=== PATIENT | female | born 1950 | race Caucasian/White ===

== ENCOUNTER 2019-01-23 08:37 | Outpatient (REF) | payer MEDICARE, BC, SELFPAY ==
[2019-01-23 13:25] LABS: HCT 44.7 % (36.0-46.0); HGB 14.8 g/dL (12.0-15.5); Mean Corp. HGB Concentration 33.1 g/dL (32.0-36.0); Mean Corpuscular Hemoglobin 29.9 pg (27.0-33.0); Mean Corpuscular Volume 90.3 fL (80-95); Mean Platelet Volume 12.3 fL (8.0-11.0); Platelet Count 194 x1000/uL (130-400); RBC 4.95 m/cumm (4.00-5.20); RBC Distribution Width 13.7 % (11.7-14.6); White Blood Cell Count 4.52 k/cumm (4.4-10.8)
[2019-01-23 13:30] LABS: ALT 27 U/L (12-78); AST 14 U/L (15-37); Albumin 3.8 g/dL (3.4-5.0); Alkaline Phosphatase 90 U/L (46-116); Anion Gap 11.8 mmol/L (3-11); BUN 17 mg/dL (7-18); Bilirubin, Total 0.7 mg/dL (0.2-1.0); CO2 25.2 mmol/L (21.0-32.0); CREATININE 0.74 mg/dL (0.55-1.02); Calculated LDL 138 mg/dL; Chloride 106 mmol/L (98-107); Cholesterol 210 mg/dL (50-200); Glucose 95 mg/dL (70-100); HDL Cholesterol 55 mg/dL (40-60); Sodium 143 mmol/L (136-145); Total Protein 6.7 g/dL (6.4-8.2); Triglyceride 89 mg/dL (30-150)
== END 2019-01-23 08:57 ==
LOC: NCHCN 08:37
PROVIDERS: PCP Family Medicine; Visit Provider Family Medicine
DX: R79.89 Other specified abnormal findings of blood chemistry (principal); Z13.6 Encounter for screening for cardiovascular disorders; Z13.0 Encounter for screening for diseases of the blood and blood-forming organs and certain disorders involving the immune mechanism
CPT/HCPCS: 80053; 80061; 83721; 85027

== ENCOUNTER 2019-02-13 00:16 | Outpatient (CLI) | payer MEDICARE, BC, SELFPAY ==
--- NOTE | 2019-02-13 10:15 | DI.MAMMO_ITS ---
SYMPTOM/DIAGNOSIS: SCREENING Z12.31, PREVENTATIVE Z00.00 MAMMOGRAM: 02/13 Mammograms were interpreted according to the usual protocol including computer analysis with CAD system, tomosynthesis and C view imaging. The breasts are heterogeneously dense. There is somewhat asymmetric radiodensity with increased radiodensity in the right breast as compared to the left particularly in the retroareolar portion of the breast. The findings are unchanged in comparison with previous examinations including February 2017. No new mass or clumped microcalcification seen. CONCLUSION: No specific evidence of malignancy at this time. Routine screening examinations are suggested at yearly intervals in this age group according to the ACS/ACR guidelines. Category 1, breast density category C. SA ASSESSMENT OF FINDINGS: Negative. Category 1. Patient will receive a letter notifying them of these results. Bi-RADS category C. The breasts are heterogeneously dense, which may obscure small masses.
== END 2019-02-13 00:36 ==
PROVIDERS: PCP Family Medicine; Visit Provider Family Medicine
DX: Z12.31 Encounter for screening mammogram for malignant neoplasm of breast (principal)
CPT/HCPCS: 77063; 77067

== ENCOUNTER 2019-03-21 12:16 | Outpatient (CLI) | payer MEDICARE, BC, SELFPAY ==
--- NOTE | 2019-03-21 12:17 | DI.RAD_ITS ---
INDICATION: PAIN M25.532 COMPARISON: No exams were available for comparison TECHNIQUE: 2D digital imaging was performed. FINDINGS: The bony structures are normally mineralized. There are mild degenerative changes involving the carpu s and 1st metacarpal inter multangular joints. There is no evidence of fracture or dislocation IMPRESSION:
== END 2019-03-21 12:36 ==
PROVIDERS: PCP Family Medicine; Visit Provider Specialist/Technologist Athletic Trainer
DX: M25.532 Pain in left wrist (principal); M19.032 Primary osteoarthritis, left wrist
CPT/HCPCS: 73110

== ENCOUNTER 2020-02-01 08:52 | Outpatient (REF) | payer MEDICARE, BC, SELFPAY ==
[2020-02-01 21:19] LABS: ALT 25 U/L (14-59); AST 13 U/L (15-37); Alkaline Phosphatase 88 U/L (46-116); Anion Gap 9.3 mmol/L (3-11); BUN 9 mg/dL (7-18); Bilirubin, Total 0.4 mg/dL (0.2-1.0); CO2 26.7 mmol/L (21.0-32.0); CREATININE 0.64 mg/dL (0.55-1.02); Calcium 9.1 mg/dL (8.5-10.1); Calculated LDL 150 mg/dL (<100); Chloride 111 mmol/L (98-107); Cholesterol 226 mg/dL (<200); Glucose 105 mg/dL (74-106); HDL Cholesterol 58 mg/dL (40-60); Potassium 3.9 mmol/L (3.5-5.1); Sodium 147 mmol/L (136-145); Total Protein 6.4 g/dL (6.4-8.2); Triglyceride 93 mg/dL (<150)
[2020-02-01 21:27] LABS: Albumin 3.7 g/dL (3.4-5.0)
== END 2020-02-01 09:12 ==
LOC: NCHCN 08:52
PROVIDERS: PCP Family Medicine; Visit Provider Family Medicine
DX: R79.89 Other specified abnormal findings of blood chemistry (principal)
CPT/HCPCS: 80053; 80061

== ENCOUNTER → 2020-04-09 11:08 | Outpatient (BNVA) | payer MEDICARE, BC, SELFPAY | PROVIDERS: PCP Family Medicine; Referring Provider Family Medicine; Visit Provider Surgery | DX: Z12.11 Encounter for screening for malignant neoplasm of colon (principal) ==

== ENCOUNTER 2020-04-29 10:10 | Day surgery (SDC) | payer MEDICARE, BC, SELFPAY ==
--- NOTE | 2020-04-29 07:03 | W.COLOREPORT ---
Date of service: 04/29/20 Time of Service: 11:13 Colonoscopy Report Date of procedure: 04/29/20 Pre-op diagnosis general: Colon Cancer Screening Post-op diagnosis procedure note: other (? a sessile polyp) Procedure: Colonoscopy with biopsy Surgeon: Sonia Jackson Anesthesia proc note operative: other (General/ASA 2/Alex Disla CRNA) Estimated blood loss (mL): 2 Pathology: other (Descending polyp) Complications: None Disposition: same day Indications: Healthy 70-year-old female who is here to discuss a colonoscopy. She has 2 previous colonoscopies both of which were normal. She has no cardiac disease history or lung disease history. The procedure was discussed with her as well as the risks and complications. Complications include but are not limited to bleeding, perforation, pain, missed small lesion or polyp, sore throat, aspiration and adverse reaction to the medications. Questions were entertained and answered to her satisfaction and she wished to proceed. Prep: Miralax/Dulcolax Procedure Start Time: 11:13 Procedure End Time: 11:34 Retraction Time: 14 minutes Findings: One possible polyp in the descending colon. It was sessile. ? inflammation vs polyp Procedure Description: After informed consent was obtained the patient was taken to the procedure room and placed in a left decubitous position. Monitors were applied and a time out was done. The patients name, date of , procedure, allergies to medications and metal in their body was reviewed. The patient was then sedated. Once sedated and comfortable a rectal exam was done. External exam was normal. Internal exam revealed a normal sphincter tone and no palpable masses. The scope was then introduced and retro-flexed. No internal hemorrhoids were identified. The scope was then advanced to the cecum without difficulty. The ileocecal valve and appendiceal orifice were identified. The prep was good. The scope was then slowly retracted over 14 minutes back into the rectum. There was an area in the descending colon which looked like a possible sessile polyp vs just some inflammation. The area was removed with forceps. There were no diverticula. The scope was removed and the patient was woken up and taken back to Same day surgery in stable condition. The patient tolerated the procedure well and there were no immediate complications. Follow up: Follow up will depend on the pathology results.
--- NOTE | 2020-04-29 07:04 | W.PM.DSUDISC ---
Discharge Plan Disposition Patient Disposition: HOME Condition: Good Discharge Details Reason For Visit: Colonoscopy Attending Provider: Sonia Jackson Primary Care Provider: Candida Sterling Home Meds and New Rx's Prescriptions: Continued acyclovir 200 MG capsule 400 mg PO DAILY RF: 0 carica papaya [Papaya Enzyme] Tablet 1 tab PO TID RF: 0 clobetasol 0.05 % cream 1 applic TP DAILY RF: 0 mometasone 0.1 % cream 1 applic TP DAILY RF: 0 hydrocortisone 2.5 % cream with perineal applicator 1 applic IN QD-BID PRNRF: 0 omeprazole 20 mg capsule,delayed release(DR/EC) 40 mg PO DAILY RF: 0 melatonin 5 mg capsule 10 mg PO HS PRNRF: 0 Discontinued polyethylene glycol 3350 17 gram/dose powder 238 g PO ONCE Qty: 238 RF: 0 bisacodyl [Dulcolax (bisacodyl)] 5 mg tablet,delayed release (DR/EC) 5 mg PO ONCE Qty: 4 RF: 0 Discharge Instructions Additional Instructions: Findings: ? a polyp vs just an area of inflammation Follow up: Will depend on the pathology result. I will send a letter in 10 days unless the pathology result is worrisome then I will call you Please call if you develop: fevers >101.5 Nausea or Vomiting Abdominal pain that is not transient DAY SURGERY UNIT POST ENDOSCOPY INSTRUCTIONS 1. Because there will be medication in your system for the next 24 hours, you may feel a little sleepy. Your coordination will be affected. Therefore: a. Do not drive or operate dangerous equipment for 24 hours. b. Do not drink alcohol beverages for 24 hours (not even beer). c. Plan to go home and rest for the day. 2. Generally there are no restrictions on your activity after a day or so has gone by, but you may feel a bit fatigued for a few days. 3 After you arrive home you may have a light meal and return to a normal diet as you can tolerate it without feeling sick to your stomach. 4. After surgery, you may feel pain or discomfort. This should be only transient, but if it persists please contact your doctor. 5. If there are any questions regarding the findings of your procedure, please feel free to contact your doctor. 6. If you are unable to contact your doctor with a problem, contact the hospital at [phone]. 7. Continue all your regular medications unless directed otherwise. I understand the above instructions and have no questions. Signature of Patient or Responsible Adult Escort Date/Time Name of Responsible Adult Escort Signature of Nurse Date/Time Activity:: Activity as Tolerated Diet:: As Tolerated Discharge Orders Discharge Orders: Discharge Order (Routine); Ordered 04/29/20 Ordered By: Sonia Jackson
[2020-04-29 10:33] VITALS: BP 122/74; PULSE 73; RESP 18; TEMP 36.6; O2SAT 97
[2020-04-29] MEDS: Lactated Ringers 1,000 ML 80 ML IV (11:01)
--- NOTE | 2020-04-29 11:28 | BOWEL_PTH ---
PATIENT: Lo Gardner LOC: [facility] U#:[id number] AGE/SX: 70/F ROOM: RE04/29/[address]: Sonia Jackson MD : 1950 BED: DIS: 04/29/2020 SPEC #: [id number] RECD: 04/29/20 12:40 STATUS: CAMI REQ #: [id number] RANJIT: 04/29/20 11:[address]: Sonia Jackson DEPT: Surgical Specimen RECD BY: Stephania Ly ENTERED: 04/29/20 12:40 SP TYPE: Bowel OTHR DR: Candida Sterling Tissues: 1 - BIOPSY BOWEL Procedures: GROSS AND MICRO LEVEL 4 Comments: [id number]
[2020-04-29 12:15] VITALS: BP 133/70; PULSE 70; RESP 17; TEMP 36.3; O2SAT 99
== END 2020-04-29 12:27 | disposition home or self-care (01) ==
PROVIDERS: Visit Provider Surgery
PROC: 0DJD8ZZ Inspection of Lower Intestinal Tract, Via Natural or Artificial Opening Endoscopic (ICD-10-PCS; CPT 45378; principal; 2020-04-29 10:15)
DX: Z12.11 Encounter for screening for malignant neoplasm of colon (principal); K63.5 Polyp of colon; K21.9 Gastro-esophageal reflux disease without esophagitis
CPT/HCPCS: 45380; 88305

== ENCOUNTER 2020-06-14 19:34 | Outpatient (REF) | payer MEDICARE, BC, SELFPAY ==
[2020-06-18 22:15] LABS: COVID-19 RT-PCR Result NEGATIVE (Negative)
== END 2020-06-14 19:54 ==
LOC: NCHCN 19:34
PROVIDERS: Visit Provider Family Medicine
DX: Z20.828 Contact with and (suspected) exposure to other viral communicable diseases (principal)
CPT/HCPCS: U0003

== ENCOUNTER 2021-02-25 12:02 | Outpatient (REF) | payer MEDICARE, BC, SELFPAY ==
[2021-02-25 20:07] LABS: HCT 44.5 % (36.0-46.0); HGB 14.4 g/dL (11.2-15.7); MCH 29.4 pg (27.0-33.0); MCHC 32.4 % (32.0-36.0); MPV 11.7 fL (8.0-11.0); Platelet Count 233 10^3/uL (130-400); RBC 4.89 10^6/uL (3.93-5.22); RDW 12.9 % (11.7-14.6); RDW-SD 42.7 fL; WBC 5.76 10^3/uL (4.4-10.8)
[2021-02-25 20:25] LABS: ALT 23 U/L (14-59); AST 12 U/L (15-37); Albumin 3.7 g/dL (3.4-5.0); Alkaline Phosphatase 94 U/L (46-116); BUN 14 mg/dL (7-18); Bilirubin, Total 0.6 mg/dL (0.2-1.0); CREATININE 0.7 mg/dL (0.55-1.02); Calcium 9.1 mg/dL (8.5-10.1); Chloride 107 mmol/L (98-107); Glucose 97 mg/dL (74-106); NT-proBNP 111 pg/mL (<300); Potassium 4.4 mmol/L (3.5-5.1); Sodium 143 mmol/L (136-145); TSH (W/Ref FT4) 1.24 uIU/mL (0.36-3.74); Total Protein 6.7 g/dL (6.4-8.2)
== END 2021-02-25 12:03 | disposition home or self-care (01) ==
LOC: NCHCN 12:02
PROVIDERS: Visit Provider Internal Medicine
DX: R06.09 Other forms of dyspnea (principal); R05 Cough; R13.10 Dysphagia, unspecified; K21.9 Gastro-esophageal reflux disease without esophagitis
CPT/HCPCS: 80053; 85027; 83880; 84443

== ENCOUNTER → 2021-03-17 13:22 | Outpatient (BNVA) | payer MEDICARE, BC, SELFPAY | PROVIDERS: Visit Provider Surgery | DX: L72.3 Sebaceous cyst (principal) | CPT/HCPCS: 99213 ==

== ENCOUNTER → 2021-04-24 11:05 | Outpatient (BNVA) | payer MEDICARE, BC, SELFPAY | PROVIDERS: Visit Provider Surgery | DX: L72.3 Sebaceous cyst (principal); D23.4 Other benign neoplasm of skin of scalp and neck; L72.0 Epidermal cyst | CPT/HCPCS: 11401; 11442 ==

== ENCOUNTER 2021-04-24 13:33 | Outpatient (REF) | payer MEDICARE, BC, SELFPAY ==
--- NOTE | 2021-04-24 11:35 | SKI_PTH ---
PATIENT: Lo Gardner LOC: [facility] U#:[id number] AGE/SX: 71/F ROOM: RE04/24/[address]: Evelyn White : 1950 BED: DIS: 04/24/2021 SPEC #: [id number] RECD: 04/24/21 17:31 STATUS: CAMI TURCIOS #: [id number] RANJIT: 04/24/21 11:[address]: Evelyn White DEPT: Surgical Specimen RECD BY: Stephania Ly ENTERED: 04/24/21 17:32 SP TYPE: MECHELLE SANCHEZ DR: Candida Sterling Tissues: 1 - SKIN BIOPSY(SHAVE/PUNCH) 2 - SKIN BIOPSY(SHAVE/PUNCH) Procedures: GROSS AND MICRO LEVEL 3 Comments: [id number]
== END 2021-04-24 13:34 | disposition home or self-care (01) ==
LOC: LBN 13:33
PROVIDERS: Visit Provider Surgery
DX: D23.4 Other benign neoplasm of skin of scalp and neck (principal); D23.72 Other benign neoplasm of skin of left lower limb, including hip; L72.0 Epidermal cyst
CPT/HCPCS: 88304; 88305

== ENCOUNTER → 2021-05-02 13:47 | Outpatient (BNVA) | payer MEDICARE, BC, SELFPAY | PROVIDERS: Visit Provider Physical Therapy Assistant | DX: Z48.02 Encounter for removal of sutures (principal) ==

== ENCOUNTER 2021-05-30 00:38 | Outpatient (CLI) | payer MEDICARE, BC, SELFPAY ==
--- NOTE | 2021-05-30 14:30 | DI.RAD_ITS ---
Exam(s) XR CHEST 2V PA LATERAL EXAM: XR CHEST 2V PA LATERAL CLINICAL HISTORY: CHRONIC COUGH, R05 TECHNIQUE: 2D digital imaging was performed. COMPARISON: CR CHEST 2 VIEWS PA,LAT from 11/22/2014 FINDINGS: MEDIASTINUM: Normal. HEART: Normal. PULMONARY VASCULATURE: Normal. LUNGS: Clear. PLEURAL SPACE: No pleural effusion or pneumothorax. BONE:Unremarkable for age. IMPRESSION: No acute abnormality. DATA REPOSITORY: RADIATION DOSE DELIVERED:
--- NOTE | 2021-05-30 14:38 | DI.MAMMO_ITS ---
Exam(s) MAMMO SCREENING EXAM: MAMMO SCREENING CLINICAL HISTORY: SCREENING, Z12.39 TECHNIQUE: Mammograms were interpreted according to the usual protocol including computer analysis w [employer] CAD system, tomosynthesis and C-view imaging. COMPARISON: 2012 through 2018 FINDINGS: The breasts are composed of heterogeneously dense fibroglandular densities, Breast Density category C . No suspicious masses or suspicious microcalcifications are seen. No skin thickening or abnormal axillary lymph nodes are seen. There has been no significant change from prior exams. IMPRESSION: BI-RADS Category 1, Negative mammogram. Yearly screening mammography is recommended. Breast Density Category C, heterogeneously Dense. The mammogram demonstrates the patient's breast tissue is dense. Dense breast tissue is very common a nd is not abnormal but dense breast tissue can make it harder to find cancer on a mammogram. Also, de nse breast tissue may increase breast cancer risk. This information about the result of the mammogram report was provided to the patient to raise their awareness. Use this report when you speak with the patient about their risks for breast cancer, which includes their family history. At that time, you may recommend additional screening tests (Ultrasound or MRI) as they might be useful based on their r isk. A negative radiographic report should not delay biopsy if a dominant or clinically suspicious mass is present. Up to ten percent of cancers are not identified on mammography. A negative report may reinforce clinical impression. Adenosis and dense breasts may obscure an underlying neoplasm. False positive reports average 6 to 10%.
== END 2021-05-30 00:58 ==
PROVIDERS: Visit Provider Internal Medicine
DX: Z12.31 Encounter for screening mammogram for malignant neoplasm of breast (principal); R05.8 Other specified cough; R92.8 Other abnormal and inconclusive findings on diagnostic imaging of breast
CPT/HCPCS: 77063; 77067; 71046

== ENCOUNTER 2021-07-24 18:01 | Outpatient (REF) | payer MEDICARE, BC, SELFPAY ==
[2021-07-26 13:25] LABS: COVID-19 RT-PCR UVMMC Result Negative (Negative)
== END 2021-07-24 18:02 | disposition home or self-care (01) ==
LOC: NCHCN 18:01
PROVIDERS: Visit Provider Family Medicine
DX: R19.7 Diarrhea, unspecified (principal)
CPT/HCPCS: U0003; U0005

== ENCOUNTER 2021-07-27 08:21 | Emergency (ER) | payer MEDICARE, BC, SELFPAY ==
[2021-07-27] VITALS (51 sets, daily range): BP systolic 146–168; BP diastolic 62–79; PULSE 47–63; RESP 62; TEMP 37; O2SAT 87–98
--- NOTE | 2021-07-27 08:30 | DI.CT_ITS ---
Exam(s) CT RENAL COLIC WO EXAM: CT RENAL COLIC WO CLINICAL HISTORY: left flank pain. TECHNIQUE: Imaging Protocol: Axial computed tomography images with coronal and sagittal reformatted images were created and reviewed. COMPARISON: No exams were available for comparison FINDINGS: ABDOMEN: Lung Bases: No acute pulmonary infiltrates. Liver: Normal density. No measurable mass. The liver measures 21 cm in length. This appears to repre sent a Bill's lobe. Gallbladder and biliary tract: No radiodense calculus or biliary ductal dilation. Pancreas: Normal density, no abnormal calcifications or inflammatory process. Spleen: Normal. Kidneys: Normal size, contour and axis.There is bilateral nephrolithiasis. There is a 8 mm stone in the proximal right ureter causing [id number] hydronephrosis. No masses seen. Adrenal glands: No mass is seen. Lymph nodes: Within normal limits. Abdominal Aorta: Abdominal portion non-dilated. Atherosclerosis. PELVIS: Bladder:Symmetric distention. There is a question of a soft tissue nodule in the anterior superior u rinary bladder best appreciated on the sagittal views. (Series 5, image 70). Bowel: No obstruction or bowel wall thickening. No evidence of appendicitis. There is a small hiatal hernia. Peritoneal cavity: No ascites, collection or mesenteric inflammatory response. No free air. There i s a surgical clip in the right anterior abdominal cavity which may have migrated. Reproductive organs: Within normal limits. Bones: Within normal limits. Soft Tissues: Small fat containing umbilical hernia. Small fat containing infraumbilical anterior ab dominal wall hernia. IMPRESSION: 1. 8 mm left UPJ obstructing stone causing vyea-[id number] hydronephrosis. 2. Bilateral nephrolithiasis. 3. Question of a soft tissue nodule in the anterior superior the bladder wall. A neoplasm cannot be entirely excluded. Further evaluation with ultrasound or CT urogram should be considered. RADIATION DOSE DELIVERED: 891.85mGy.cm Total DLP DATA REPOSITORY: All CT scans at this facility are submitted to the National Radiology Data Registry (NRDR) Dose Index Registry (DIR) with the [employer] (ACR). RADIATION OPTIMIZATION: All CT scans at this facility use at least one of these dose optimization te chniques: automated exposure control; mA and/or kV adjustment per patient size (includes targeted exa ms where dose is matched to clinical indication); or iterative reconstruction.
[2021-07-27] MEDS: HYDROmorphone 2 MG/ML VIAL 0.5 MG IVP (08:40)
--- NOTE | 2021-07-27 08:40 | W.ED.GENAD ---
Discharge Plan Disposition Patient Disposition: HOME Condition: Stable Discharge Details Clinical Impression: Hydronephrosis with obstructing calculus Primary Care Provider: Candida Sterling ED Provider: Se Ruggiero Home Meds and New Rx's Prescriptions: New oxycodone 10 mg tablet 10 mg PO Q6H PRN (Reason: pain) Qty: 10 RF: 0 ondansetron 4 mg tablet,disintegrating 4 mg PO Q6H PRN (Reason: nausea and vomiting) Qty: 10 RF: 0 tamsulosin 0.4 mg capsule 0.4 mg PO QHS Qty: 14 RF: 0 Continued acyclovir 200 MG capsule 400 mg PO DAILY RF: 0 clobetasol 0.05 % cream 1 applic TP DAILY RF: 0 mometasone 0.1 % cream 1 applic TP DAILY RF: 0 hydrocortisone 2.5 % cream with perineal applicator 1 applic MS QD-BID PRNRF: 0 omeprazole 20 mg capsule,delayed release(DR/EC) 40 mg PO DAILY RF: 0 melatonin 5 mg capsule 10 mg PO HS PRNRF: 0 ascorbic acid (vitamin C) [Vitamin C] 1,000 mg Tablet 1,000 mg PO DAILY RF: 0 cholecalciferol (vitamin D3) [Vitamin D3] 10 mcg (400 unit) Tablet 400 unit PO DAILY RF: 0 Discharge Instructions Instructions: Kidney Stones (ED) Additional Instructions: As discussed you may take acetaminophen/Tylenol as needed for pain control just do not exceed 3000 mg in a 24-hour. Stay well-hydrated and take other meds as prescribed. If you have any severe worsening of pain, inability to urinate, fever, or vomiting that will not stop return immediately to the emergency department for reevaluation. It is recommended that you follow-up with urology. You were prescribed a narcotic medication and you should take this for severe pain and discomfort. Please be cautious with any operating vehicles, heavy machinery, or dangerous items as this medication may alter your mentation. Referrals: Dm Saunders MD [ [facility] STAFF PHYSICIAN] - 1 week Medical Decision Making Patient presenting to the emergency department with chief complaint of left flank pain. Patient states that she saw her primary care provider on and there was suspicion of this being musculoskeletal. Patient states that pain is worsened, she has developed some nausea one episode of vomiting, and pain radiating into the pelvis. Physical exam shows significant amount of left CVA tenderness, hypoactive bowel sounds, otherwise normal cardiac and respiratory exam. Patient is moaning in pain and appears uncomfortable. Plan to check labs, give analgesia, and hydrate pending CT renal colic imaging. Review of labs show signs of hematuria otherwise no white count, slightly elevated anion gap but appropriate renal function, and otherwise nondiagnostic labs. Review of CT imaging along with radiologist report shows a obstructing 8 mm stone at the left ureteropelvic junction with mild hydronephrosis. There is some fat stranding adjacent to the renal sinus and UPJ. Patient reassessed and is significantly more comfortable after pain medication. Discussed laboratory and CT findings with patient along with plan of care to include Flomax, narcotic pain medication, and follow-up with urology. Patient is agreeable to discharge home but states clear understanding of return precautions. Was unable to login to [facility] for narcotic check but had thorough discussion of risk versus benefit of narcotics with patient and feel no concern for prescribing these at this time. Patient was also agreeable to prescription of narcotic pain medication and states understanding to only use for severe pain otherwise she states she will use acetaminophen. After discussion of diagnosis and plan of care patient has no further needs, questions, or concerns and states clear understanding to return to the emergency department for any worsening symptoms. Patient was placed upon follow-up with for urology. Lab Data Lab results reviewed: Yes I reviewed the patient's lab results. Labs: 07/27/21 08:38 Urine - Reflex from Ua Urine Culture - Pending Laboratory Tests Range/Units 07/27/21 07/27/21 07/27/21 08:34 08:34 08:38 WBC (4.4-10.8) 10^3/uL 8.02 RBC (3.93-5.22) 10^6/uL 4.89 Hgb (11.2-15.7) g/dL 14.9 Hct (36.0-46.0) % 44.4 MCV (80-95) fL 90.8 MCH (27.0-33.0) pg 30.5 MCHC (32.0-36.0) % 33.6 RDW (11.7-14.6) % 12.5 Plt Count (130-400) 10^3/uL 230 MPV (8.0-11.0) fL 11.1 H Immature Gran % 0.2 Neutrophils % 52.1 Lymphocytes % 38.2 Monocytes % 6.4 Eosinophils % 2.6 Basophils % 0.5 Nucleated RBC % % 0 Absolute Neutrophils (1.2-6.7) 10^3/uL 4.18 Absolute Lymphocytes (1.2-3.4) 10^3/uL 3.06 Absolute Monocytes (0.1-0.8) 10^3/uL 0.51 Absolute Eosinophils (0.0-0.7) 10^3/uL 0.21 Absolute Basophils (0.0-0.2) 10^3/uL 0.04 Sodium (136-145) mmol/L 140 Potassium (3.5-5.1) mmol/L 3.6 Chloride (98-107) mmol/L 103 Carbon Dioxide (21.0-32.0) mmol/L 23.5 Anion Gap (3-11) mmol/L 13.5 H BUN (7-18) mg/dL 23 H Creatinine (0.55-1.02) mg/dL 1.0 Estimated GFR/1.73 m2 (mL/min/1.73m2) 54.35 Glucose (74-106) mg/dL 159 H Calcium (8.5-10.1) mg/dL 9.3 Magnesium (1.8-2.4) mg/dL 1.7 L Total Bilirubin (0.2-1.0) mg/dL 0.4 AST (15-37) U/L 12 L ALT (14-59) U/L 18 Alkaline Phosphatase (46-116) U/L 91 Troponin I (<or=60) ng/L < 50 Total Protein (6.4-8.2) g/dL 7.3 Albumin (3.4-5.0) g/dL 3.9 Lipase (73-393) U/L 128 Urine Color (Yellow) Yellow Urine Clarity (Clear) Sl Cloudy Urine pH (5-8) 7.0 Ur Specific [place] (1.005-1.025) 1.020 Urine Protein (Negative) mg/dL Negative Urine Ketones (Negative) mg/dL Negative Urine Blood (Negative) Moderate H Urine Nitrite (Negative) Negative Urine Bilirubin (Negative) Negative Urine Urobilinogen (Up TO 0.2) EU/dL 0.2 Ur Leukocyte Esterase (Negative) Trace H Urine RBC (0-2) HPF 10-20 H Urine WBC (0-5) HPF 3-5 Ur Epithelial Cells (Negative) HPF Rare Urine Crystals (Negative) HPF Negative Urine Bacteria (Negative) HPF Rare Urine Casts (Negative) LPF Negative Urine Mucus (Negative) Negative Ur Culture Indicated? Yes Urine Glucose (Negative) mg/dL Negative HPI General Mode of arrival: ambulatory. Date/Time Provider Initiated Documentation: 07/27/21 08:22. Limitations to Documentation: no limitations. Information obtained by: patient. History of Present Illness 71 year old F presents to the emergency department with the chief complaint of Left flank pain, described as severe, with intensity rated at 10. Quality is described as sharp, and is localized to the back and left. Patient reports radiation to (pelvis). Patient started experiencing this day(s) (4) and it has been constant. No relieving factors improve symptom(s), Movement worsens symptoms . Patient notes nausea/vomiting. Patient did receive the following treatments prior to arrival, NSAID Related Data Home Medications Medication Instructions Recorded Confirmed acyclovir 400 mg PO DAILY 10/11/13 07/27/21 clobetasol 0.05 % topical cream 1 applic TP DAILY 02/27/20 07/27/21 hydrocortisone 2.5 % topical cream 1 applic MS QD-BID PRN 02/27/20 05/03/21 with perineal applicator mometasone 0.1 % topical cream 1 applic TP DAILY 02/27/20 07/27/21 omeprazole 20 mg capsule,delayed 40 mg PO DAILY cap 04/02/20 07/27/21 release melatonin 5 mg capsule 10 mg PO HS PRN cap 04/09/20 07/27/21 ascorbic acid (vitamin C) [Vitamin 1,000 mg PO DAILY 07/27/21 07/27/21 C] cholecalciferol (vitamin D3) 400 unit PO DAILY 07/27/21 07/27/21 [Vitamin D3] ondansetron 4 mg PO Q6H PRN #10 tab 07/27/21 oxycodone 10 mg PO Q6H PRN #10 tab 07/27/21 tamsulosin 0.4 mg PO QHS #14 cap 07/27/21 Previous Rx's Medication Instructions Recorded ondansetron 4 mg PO Q6H PRN #10 tab 07/27/21 oxycodone 10 mg PO Q6H PRN #10 tab 07/27/21 tamsulosin 0.4 mg PO QHS #14 cap 07/27/21 Allergies Allergy/AdvReac Type Severity Reaction Status Date / Time erythromycin base Allergy Unknown Skin Rash Verified 07/27/21 08:46 General Stated Complaint: FlankPain KESHAWN: 3 Review of Systems Constitutional Constitutional: Denies chills, Denies fever(s) and Denies poor appetite Cardiovascular Cardiovascular: Denies chest pain and Denies dyspnea Respiratory Respiratory: Denies cough and Denies dyspnea Gastrointestinal Gastrointestinal: Reports as per HPI, Reports abdominal pain, Denies melena, Denies change in bowel habits, Denies constipation, Reports diarrhea, Reports nausea and Denies vomiting Genitourinary Genitourinary: Denies hematuria, Denies urinary incontinence, Denies urinary hesitancy and Denies urinary urgency Musculoskeletal Musculoskeletal: Reports back pain and Denies radiating pain into limb Integumentary/Breasts Skin/Breast: Denies rash Neurologic Neurologic: Denies paresthesias PFSH All Active Problems (Updated 07/27/21 @ 09:49 by Se Ruggiero NP) Hydronephrosis with obstructing calculus (Acute) Sebaceous cyst (Acute) H/O cold sores (Chronic) Tubular adenoma of colon (Acute) Urinary incontinence (Acute) Pt states r/o incontenece she leaks. Herpes labialis (Acute) Cataract (Chronic) Onychomycosis (Acute) Seborrheic keratoses (Acute) Medical History Biceps tendinitis on left (11/22/14) Chronic cough Cystocele Pt. states she has a titanium staple They tacked up by bladder Dysphagia Exertional dyspnea GERD (gastroesophageal reflux disease) Left arm pain (11/22/14) Scalp lesion Surgical History S/P colonoscopy 2008- [facility]- normal S/P tonsillectomy S/P tubal ligation Social History Smoking/Tobacco Use Status: Never Smoking risk assessment performed?: Yes Alcohol Intake: current Alcohol Intake frequency: 0-2 drinks per day Drug use: Never Substance use type: does not use Do you feel safe at home: Yes Do you feel safe in your relationship?: Yes Exam Const General: in distress moderate (Secondary to pain) Nutritional Appearance: overweight Orientation: alert, awake and oriented x3 Resp Effort & Inspection: normal respiratory effort and able to speak in complete sentences Auscultation: clear to auscultation bilaterally Cardio Rate: regular rate Rhythm: regular rhythm Heart Sounds: S1 normal and S2 normal GI Palpation: soft, no hepatosplenomegaly, not firm, no guarding, no masses, no pulsatile masses, not rigid, no splenomegaly and nontender Auscultation: hypoactive bowel sounds General: CVA tenderness on the left Back/Spine/Pelvis Back: CVA tenderness (left) and back tenderness (Left paraspinal) Neuro General: patient alert, patient awake, patient oriented x3, gait normal and moves all extremities Course Vital Signs Vital signs: Vital Signs Temperature 37 C 07/27/21 08:33 Pulse 62 07/27/21 08:33 Respiratory Rate 62 H 07/27/21 08:33 Temperature 37 C 07/27/21 08:33 Temperature Source Skin 07/27/21 08:33 Pulse 62 07/27/21 08:33 Respiratory Rate 62 H 07/27/21 08:33 Blood Pressure Position Supine 07/27/21 08:33 Pain Level 10 07/27/21 08:33
[2021-07-27 08:42] LABS: Bilirubin Negative (Negative); Blood Moderate (Negative); Clarity Sl Cloudy (Clear); Glucose Negative (Negative); Ketones Negative (Negative); Leukocyte Esterase Trace (Negative); Nitrite Negative (Negative); Urobilinogen 0.2 EU/dL (Up TO 0.2)
[2021-07-27 08:45] LABS: Abs Immature Grans 0.02 10^3/uL (0.0-0.06); Absolute Basophil Count 0.04 10^3/uL (0.0-0.2); Absolute Eosinophil Count 0.21 10^3/uL (0.0-0.7); Absolute Lymphocyte Count 3.06 10^3/uL (1.2-3.4); Absolute Monocyte Count 0.51 10^3/uL (0.1-0.8); Absolute Neutrophil Count 4.18 10^3/uL (1.2-6.7); Basophils % 0.5; Eosinophils % 2.6; HCT 44.4 % (36.0-46.0); HGB 14.9 g/dL (11.2-15.7); Immature Grans % 0.2; Lymphocytes % 38.2; MCH 30.5 pg (27.0-33.0); MCHC 33.6 % (32.0-36.0); MCV 90.8 fL (80-95); MPV 11.1 fL (8.0-11.0); Monocytes % 6.4; Neutrophils % 52.1; Nucleated RBC 0 %; Platelet Count 230 10^3/uL (130-400); RBC 4.89 10^6/uL (3.93-5.22); RDW 12.5 % (11.7-14.6); RDW-SD 41.6 fL; WBC 8.02 10^3/uL (4.4-10.8)
[2021-07-27] MEDS: Ondansetron 4 MG/2 ML VIAL IVP (08:50)
[2021-07-27] MEDS: Normal Saline 250 ML 500 ML IV (08:50)
[2021-07-27 08:53] LABS: Bacteria Rare HPF (Negative); C & S Indicated? Yes; Casts Negative LPF (Negative); Crystals Negative HPF (Negative); Epithelial Cells Rare HPF (Negative); Mucus Negative (Negative)
[2021-07-27 09:02] LABS: ALT 18 U/L (14-59); AST 12 U/L (15-37); Albumin 3.9 g/dL (3.4-5.0); Alkaline Phosphatase 91 U/L (46-116); Anion Gap 13.5 mmol/L (3-11); BUN 23 mg/dL (7-18); Bilirubin, Total 0.4 mg/dL (0.2-1.0); CO2 23.5 mmol/L (21.0-32.0); Calcium 9.3 mg/dL (8.5-10.1); Chloride 103 mmol/L (98-107); Estimated GFR 54.35 (mL/min/1.73m2); Glucose 159 mg/dL (74-106); Lipase 128 U/L (73-393); Magnesium 1.7 mg/dL (1.8-2.4); Potassium 3.6 mmol/L (3.5-5.1); Sodium 140 mmol/L (136-145); Total Protein 7.3 g/dL (6.4-8.2); Troponin I < 50 ng/L (<or=60)
--- NOTE | 2021-07-27 09:31 | DI.VRAD_ITS ---
PROCEDURE INFORMATION: Exam: CT Abdomen And Pelvis Without Contrast Exam date and time: 07/27/2021 8:39 AM Age: 71 years old Clinical indication: Other: Left flank pain TECHNIQUE: Imaging protocol: Computed tomography of the abdomen and pelvis without contrast. Radiation optimization: All CT scans at this facility use at least one of these dose optimization techniques: automated exposure control; mA and/or kV adjustment per patient size (includes targeted exams where dose is matched to clinical indication); or iterative reconstruction. COMPARISON: CR BILATERAL HIPS ADULT 02/17/2017 1:08 PM FINDINGS: Lungs: Minimal bibasilar scarring. Heart: The visualized heart is within normal limits for size. There is no evidence of pericardial abnormality. Esophagus: The distal esophagus is normal in appearance. Liver: The liver is normal in size and contour. Gallbladder and bile ducts: The gallbladder is distended with normal wall thickness and does not demonstrate calcified gallstones. No intra- or extra-hepatic biliary ductal dilatation. Pancreas: The pancreas appears normal. Spleen: The spleen appears normal. Adrenal glands: The adrenals appear normal. Kidneys and ureters: Obstructing 8 mm stone at the left ureteropelvic junction. Mild hydronephrosis. Fat stranding adjacent to the renal sinus and ureteropelvic junction. Nonobstructing 6 mm stone noted in the lower pole of the left kidney. Punctate nonobstructing stones in the lower pole the right kidney. No signs of right-sided urinary obstruction. Stomach and bowel: The stomach is appropriately distended and without wall abnormalities. The small bowel loops are not abnormally dilated and demonstrate no focal wall thickening. The large bowel loops are not abnormally dilated and demonstrate no focal wall thickening. Appendix: The appendix appears normal. Intraperitoneal space: Migrated surgical clip noted in right mid abdomen. Vasculature: The aorta is nonaneurysmal. The IVC appears normal. Lymph nodes: There are no enlarged lymph nodes. Urinary bladder: The bladder is distended and demonstrates no focal contour abnormality. Reproductive: The uterus appears normal. Clips likely related of fallopian tube intervention noted. The ovaries are not well visualized. Bones/joints: Degenerative disc disease at L5-S1. Soft tissues: 5 mm fat containing hernia along the anterior pelvic wall. 12 mm fat containing umbilical hernia. IMPRESSION: 1. Obstructing 8 mm stone at the left ureteropelvic junction. Mild hydronephrosis. Fat stranding adjacent to the renal sinus and ureteropelvic junction. Nonobstructing 6 mm stone noted in the lower pole of the left kidney. 2. Right-sided nephrolithiasis. COMMENTS: Evaluation of solid organs and vascular structures is limited as no IV contrast was administered. Dictated and Authenticated by: Nixon Sinclair MD. Ordering:BERNARDO Saez MD
[2021-07-27] MEDS: Ketorolac 15 MG/ML VIAL IVP (10:01)
--- NOTE | 2021-07-27 10:08 | NUR.NOTE ---
Referral faxed to [facility]rology for follow up of 8mm obstructing stone within 1 week. Brenda Turner Nursing Note:
== END 2021-07-27 11:28 | disposition home or self-care (01) ==
PROVIDERS: Emergency Provider Nurse Practitioner Family
DX: N13.2 Hydronephrosis with renal and ureteral calculous obstruction (principal); R11.2 Nausea with vomiting, unspecified; R10.9 Unspecified abdominal pain
CPT/HCPCS: 36415; 80053; 83690; 96361; 96374; 96375; 99284; 74176; 81003; 81015; 83735; 84484; 85025; 87086; J1885; J2405

== ENCOUNTER → 2021-07-29 09:13 | Outpatient (BNVA) | payer MEDICARE, BC, SELFPAY | PROVIDERS: Visit Provider Urology | DX: N20.1 Calculus of ureter (principal); N39.46 Mixed incontinence | CPT/HCPCS: 99214 ==

== ENCOUNTER 2021-08-05 01:48 | Outpatient (CLI) | payer MEDICARE, BC, SELFPAY ==
[2021-08-05 13:49] LABS: Source Nasal/Nares
[2021-08-05 16:43] LABS: COVID-19 PCR Negative (Negative)
== END 2021-08-05 01:49 | disposition home or self-care (01) ==
LOC: LBO 01:49
PROVIDERS: PCP Family Medicine; Visit Provider Urology
DX: Z20.822 Contact with and (suspected) exposure to COVID-19 (principal); Z01.818 Encounter for other preprocedural examination
CPT/HCPCS: 87635

== ENCOUNTER 2021-08-07 07:15 | Day surgery (SDC) | payer MEDICARE, BC, SELFPAY ==
[2021-08-07] VITALS (9 sets, daily range): BP systolic 96–171; BP diastolic 62–85; PULSE 57–84; RESP 13–16; TEMP 36–37; O2SAT 97–100; BMI 27.3
--- NOTE | 2021-08-07 08:05 | W.ANESPRE ---
General Info Date of Service Date Performed: 08/07/21 Height: 5 ft 4 in Weight: 72.4 kg Body Mass Index (BMI): 27.3 Surgical Procedure: Operation Date: 08/07/21 08:40 Proposed Procedures Side Surgeon p Cystoscopy/Laser/Retrograde/Ureteroscopy/ possible Stent,Cysto w/Injection of Coaptite and Botox Left Dm Saunders MD s Cystoscopy/Injection Dm Saunders MD Meds Allergies and Home Medications Allergies Allergy/AdvReac Type Severity Reaction Status Date / Time erythromycin base Allergy Unknown Skin Rash Verified 08/07/21 07:38 oxycodone AdvReac Severe Other (See Verified 08/07/21 07:38 Comment) Home Medication Medication Instructions Recorded acyclovir 400 mg PO DAILY 10/11/13 clobetasol 0.05 % topical cream 1 applic TP DAILY 02/27/20 hydrocortisone 2.5 % topical cream 1 applic [place] QD-BID PRN 02/27/20 with perineal applicator mometasone 0.1 % topical cream 1 applic TP DAILY 02/27/20 omeprazole 20 mg capsule,delayed 40 mg PO DAILY cap 04/02/20 release melatonin 5 mg capsule 10 mg PO HS PRN cap 04/09/20 ascorbic acid (vitamin C) [Vitamin 1,000 mg PO DAILY 07/27/21 C] cholecalciferol (vitamin D3) 400 unit PO DAILY 07/27/21 [Vitamin D3] ondansetron 4 mg PO Q6H PRN #10 tab 07/27/21 oxycodone 10 mg PO Q6H PRN #10 tab 07/27/21 tamsulosin 0.4 mg PO QHS #14 cap 07/27/21 tramadol 50 mg tablet 50 mg PO Q6H PRN #25 tab 08/01/21 clobetasol 0.05 % topical cream 1 applic TOPICAL DAILY 08/05/21 fluoride (sodium) 1.1 % dental 1 applic DENTAL DAILY 08/05/21 cream Current Visit Medications: Current Medications Generic Name Dose Route Start Last Admin Trade Name Freq PRN Reason Stop Dose Admin OnabotulinumtoxinA 100 units/ 0 units 08/07/21 06:00 Sodium Chloride 10 ml IJ 08/07/21 16:00 TODAY MELLY Ringer's Solution 1,000 mls @ 80 mls/hr 08/07/21 06:00 IV 09/05/21 23:59 INFUSION MELLY Cefazolin Sodium/Dextrose 2 gm in 50 mls @ 100 mls/hr 08/07/21 06:00 Ancef Duplex IVPB 08/07/21 16:00 PREOP MELLY IV Miscellaneous Supplies 1 each 08/07/21 06:00 Iv Access IV 09/05/21 23:59 DIRECTED MELLY Sodium Chloride 0 ml 08/07/21 06:00 Normal Saline Flush 10 Ml Syr IV 09/05/21 23:59 PRN PRN Sodium Chloride 0 ml 08/07/21 06:00 Normal Saline 10 Ml Vial IJ 09/05/21 23:59 DIRECTED PRN Sterile Water 0 ml 08/07/21 06:00 Water,Injection,Sterile 10 Ml Vial IJ 09/05/21 23:59 DIRECTED PRN PFSH Active Problems Active Problems: Problem Status Onset Code Hearing loss, bilateral H91.93 Mixed stress and urge urinary incontinence N39.46 Left ureteral stone N20.1 Hydronephrosis with obstructing calculus N13.2 Sebaceous cyst L72.3 H/O cold sores Z86.19 Tubular adenoma of colon D12.6 Urinary incontinence R32 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 states she has a titanium staple They tacked up by bladder Dysphagia Exertional dyspnea GERD (gastroesophageal reflux disease) Left arm pain (11/22/14) Scalp lesion Surgical History Surgical History (Updated 08/07/21 @ 07:47 by Shannon Mehta RN) History of bladder suspension procedure History of esophagogastroduodenoscopy (EGD) S/P colonoscopy - S/P tonsillectomy S/P tubal ligation Tobacco Smoking/Tobacco Use Status: Never Alcohol Alcohol Intake: current Alcohol intake frequency: 0-2 drinks per day Substance Use Substance use: Never Substance use type: does not use Details: last drink of alcohol on wednesday Vital Signs and Lab Results Vital Signs Most Recent Vital Signs in EMR: Most Recent Vital Signs Temp Pulse Resp BP Pulse Ox 37.0 C 84 16 136/85 97 08/07/21 07:18 08/07/21 07:18 08/07/21 07:18 08/07/21 07:18 08/07/21 07:18 Lab Results Blood Type / Crossmatch: No Data to Display Complete Blood Count: White Blood Count 8.02 10^3/uL (4.4-10.8) 07/27/21 08:34 07/27/21 Red Blood Count 4.89 10^6/uL (3.93-5.22) 07/27/21 08:34 07/27/21 Hemoglobin 14.9 g/dL (11.2-15.7) 07/27/21 08:34 07/27/21 Hematocrit 44.4 % (36.0-46.0) 07/27/21 08:34 07/27/21 Platelet Count 230 10^3/uL (130-400) 07/27/21 08:34 07/27/21 Complete Metabolic Panel: Sodium Level 140 mmol/L (136-145) 07/27/21 08:34 07/27/21 Potassium Level 3.6 mmol/L (3.5-5.1) 07/27/21 08:34 07/27/21 Chloride Level 103 mmol/L (98-107) 07/27/21 08:34 07/27/21 Carbon Dioxide Level 23.5 mmol/L (21.0-32.0) 07/27/21 08:34 07/27/21 Blood Urea Nitrogen 23 mg/dL (7-18) H 07/27/21 08:34 07/27/21 Creatinine 1.0 mg/dL (0.55-1.02) 07/27/21 08:34 07/27/21 Estimated GFR/1.73 m2 54.35 (mL/min/1.73m2) 07/27/21 08:34 07/27/21 Magnesium Level 1.7 mg/dL (1.8-2.4) L 07/27/21 08:34 07/27/21 Calcium Level 9.3 mg/dL (8.5-10.1) 07/27/21 08:34 07/27/21 Albumin 3.9 g/dL (3.4-5.0) 07/27/21 08:34 07/27/21 Glucose Level 159 mg/dL (74-106) H 07/27/21 08:34 07/27/21 Liver Function Panel: Alanine Aminotransferase (ALT/SGPT) 18 U/L (14-59) 07/27/21 08:34 07/27/21 Aspartate Amino Transf (AST/SGOT) 12 U/L (15-37) L 07/27/21 08:34 07/27/21 Coagulation Panel: No Data to Display Cardiac Panel: Troponin I < 50 ng/L (<or=60) 07/27/21 Arterial Blood Gas: No Data to Display Venous Blood Gas: No Data to Display Pancreas Panel: Lipase 128 U/L (73-393) 07/27/21 08:34 07/27/21 Thyroid Panel: No Data to Display Infectious Disease: Coronavirus (COVID-19)(PCR) Negative (Negative) 08/05/21 10:12 08/05/21 Coronavirus 2019 Source Nasal/Nares 08/05/21 10:12 08/05/21 Blood Cultures: No Data to Display Toxicology Panel: No Data to Display Imaging and Studies Imaging and Studies Study information below may be from another EMR and interpreted by another provider. Please see original notes in EMR for more complete details. Stress Test Summary: STRESS TEST REPORT PROTOCOL: Emil TARGET HEART RATE: 070=959% (130= 85 % of maximal). HEART RATE ACHIEVED: 155 BPM TERMINATION OF EXERCISE: At 9 minutes 01 seconds, because: Pt FATIGUE, Pt REACHED 101% MAXIMAL HR. ARRHYTHMIAS: NONE ANGINA: NONE EKG CHANGES: NONE. IMPRESSION: Negative for ischemia. 11/2014 Anesthesia Assessment and Plan Anesthesia History Personal History: No History of Anesthesia Complications and PONV Family History: No Family History of Anesthesia Complications Exercise Tolerance Exercise Tolerance: Metabolic Equivalents>4 Pertinent Negatives Pertinent Negatives: No Symptoms of GERD (Well controlled with omeprazole), No Major Cardiovascular Symptoms or Complaints, No Major Pulmonary Symptoms or Complaints and No History of CVA/TIA Cardiac & Pulmonary Exam Cardiac Exam: Normal S1/S2 Heart Sounds Pulmonary Exam: Clear Bilateral Breath Sounds Implantable Cardiac Device Does patient have a Pacemaker or an ICD?: No Airway Exam Known Difficult Airway: No Mallampati Class: 1 Mouth Opening: Normal (> 3cm) Thyromental Distance: Greater than 3 cm Neck Range of Motion: Full ROM Neck Circumference: Normal Teeth Condition: Normal Dentition ASA Classification ASA Score: ASA 2 Emergency Case?: No NPO Status NPO Status: NPO Clears >2 hours, Solids >8 hours Anesthesia Plan Resuscitation Status: Full Code Anesthesia Technique: General Anesthesia Airway Planned: LMA Monitors Used: Standard Monitors
[2021-08-07] MEDS: Lactated Ringers 1,000 ML 80 ML IV (08:17)
--- NOTE | 2021-08-07 08:35 | HPE_ITS ---
Date of service: 08/07/21 Time of Service: 08:35 Assessment and Plan Assessment and plan (1) Left ureteral stone: Status: Acute Assessment and plan: We will plan cystoscopy, left retrograde pyelogram an d ureteroscopic stone manipulation/laser lithotripsy. We discussed issues such as bleeding, infection and inability to access her stone requiring a stent and a staged procedure. For her mixed incontinence, we will be prepared to inject Botox into the detrusor muscle and a bulking agent at the bladder neck. (2) Mixed stress and urge urinary incontinence: Status: Acute History of Present Illness History of Present Illness Chief Complaint: Left ureteral stone Narrative: This is a 71-year-old woman who presented to the emergency room this weekend with an acute onset of left-sided mid back pain, nausea and vomiting. She was e valuated with a CT scan and found to have a left proximal ureteral stone. The stone measures 8 mm. He is referred to us for further care. She is not having severe pain any longer, but she continues to have nausea. She does have some intermittent discomfort but it is nowhere near as severe as when she presented to the ER. She has no gross hematuria. She has no fevers or chills. She has no previous history of kidney stones. She has no history of gout or hyperparathyroid disease. She does have a history of a cystocele and was treated with a bladder suspension procedure. Since that time, she has had persistent incontinence. She describes urinary urgency and urgency incontinence. She leaks when she coughs, laughs or sneezes. She will also have leakage with no activity and through the night when she sleeps. She has no previous issues with anesthetics. She has no known bleeding disorders. Review of Systems Narrative: No fevers or chills No vision change or dysphasia No diabetes or thyroid No shortness of breath, cough or hemoptysis No chest pain or palpitations No hepatitis, ulcers, jaundice No seizures, strokes or peripheral neuropathy No bleeding disorders or anemia No gout PFSH All Active Problems H/O cold sores (Chronic) Seborrheic keratoses (Acute) Onychomycosis (Acute) Cataract (Chronic) Herpes labialis (Acute) Urinary incontinence (Acute) Pt states r/o incontenece she leaks. Tubular adenoma of colon (Acute) Sebaceous cyst (Acute) Hydronephrosis with obstructing calculus (Acute) Left ureteral stone (Acute) Mixed stress and urge urinary incontinence (Acute) Hearing loss, bilateral (Acute) Medical History Biceps tendinitis on left (11/22/14) Chronic cough Cystocele Pt. states she has a titanium staple They tacked up by bladder Dysphagia Exertional dyspnea GERD (gastroesophageal reflux disease) Left arm pain (11/22/14) Scalp lesion Surgical History (Updated 08/07/21 @ 07:47 by Shannon Mehta, RN) History of bladder suspension procedure History of esophagogastroduodenoscopy (EGD) S/P colonoscopy - S/P tonsillectomy S/P tubal ligation Social History (Updated 08/05/21 @ 14:35 by Lizzie English RN, RN) Smoking/Tobacco Use Status: Never Smoking risk assessment performed?: Yes Alcohol Intake: current Alcohol Intake frequency: 0-2 drinks per day Drug use: Never Substance use type: does not use Details: last drink of alcohol on wednesday Household members: spouse What is your relationship status?: Panel score (0-1 are the most socially isolated patients): 1 Do you feel safe at home: Yes Do you feel safe in your relationship?: Yes Meds Allergies and Home Medications Allergies Allergy/AdvReac Type Severity Reaction Status Date / Time erythromycin base Allergy Unknown Skin Rash Verified 08/07/21 07:38 oxycodone AdvReac Severe Other (See Verified 08/07/21 07:38 Comment) Home Medications Medication Instructions Recorded Confirmed Type acyclovir 400 mg PO DAILY 10/11/13 08/07/21 History clobetasol 0.05 % topical cream 1 applic TP DAILY 02/27/20 08/07/21 History hydrocortisone 2.5 % topical cream 1 applic [place] QD-BID PRN 02/27/20 08/07/21 History with perineal applicator mometasone 0.1 % topical cream 1 applic TP DAILY 02/27/20 08/07/21 History omeprazole 20 mg capsule,delayed 40 mg PO DAILY cap 04/02/20 08/07/21 History release melatonin 5 mg capsule 10 mg PO HS PRN cap 04/09/20 08/07/21 History ascorbic acid (vitamin C) [Vitamin 1,000 mg PO DAILY 07/27/21 08/07/21 History C] cholecalciferol (vitamin D3) 400 unit PO DAILY 07/27/21 08/07/21 History [Vitamin D3] ondansetron 4 mg PO Q6H PRN #10 tab 07/27/21 08/07/21 Rx oxycodone 10 mg PO Q6H PRN #10 tab 07/27/21 08/07/21 Rx tamsulosin 0.4 mg PO QHS #14 cap 07/27/21 08/07/21 Rx tramadol 50 mg tablet 50 mg PO Q6H PRN #25 tab 08/01/21 08/07/21 Rx clobetasol 0.05 % topical cream 1 applic TOPICAL DAILY 08/05/21 08/07/21 History fluoride (sodium) 1.1 % dental 1 applic DENTAL DAILY 08/05/21 08/07/21 History cream Exam Const General: cooperative Neck Neck: supple Resp Effort & Inspection: normal respiratory effort Auscultation: clear to auscultation bilaterally Cardio Rate: regular rate Rhythm: regular rhythm GI Palpation: soft and no masses Neuro General: patient alert, patient awake and patient oriented x3 Results Last Vital Signs Temp 37.0 C 08/07/21 07:18 Pulse 84 08/07/21 07:18 Resp 16 08/07/21 07:18 BP 136/85 08/07/21 07:18 Pulse Ox 97 08/07/21 07:18
[2021-08-07] MEDS: ceFAZolin 2 GM/50 ML BAG IVPB (08:59)
[2021-08-07] MEDS: Lidocaine 2% Jelly 6 ML SYR (09:16)
[2021-08-07] MEDS: Omnipaque 300 MG/ML 50 ML BTL (09:24)
--- NOTE | 2021-08-07 09:50 | W.PM.DSUDISC ---
Discharge Plan Disposition Patient Disposition: HOME Condition: Stable Discharge Details Reason For Visit: ureteral stone Attending Provider: Dm Saunders Primary Care Provider: Guadalupe Delatorre Home Meds and New Rx's Prescriptions: No Action acyclovir 200 MG capsule 400 mg PO DAILY RF: 0 clobetasol 0.05 % cream 1 applic TP DAILY RF: 0 mometasone 0.1 % cream 1 applic TP DAILY RF: 0 hydrocortisone 2.5 % cream with perineal applicator 1 applic [place] QD-BID PRNRF: 0 omeprazole 20 mg capsule,delayed release(DR/EC) 40 mg PO DAILY RF: 0 melatonin 5 mg capsule 10 mg PO HS PRNRF: 0 tramadol 50 mg tablet 50 mg PO Q6H PRN (Reason: pain) Qty: 25 RF: 0 fluoride (sodium) [SF 5000 Plus] 1.1 % cream 1 applic dental DAILY RF: 0 clobetasol 0.05 % cream 1 applic topical DAILY RF: 0 ascorbic acid (vitamin C) [Vitamin C] 1,000 mg Tablet 1,000 mg PO DAILY RF: 0 cholecalciferol (vitamin D3) [Vitamin D3] 10 mcg (400 unit) Tablet 400 unit PO DAILY RF: 0 oxycodone 10 mg tablet 10 mg PO Q6H PRN (Reason: pain) Qty: 10 RF: 0 ondansetron 4 mg tablet,disintegrating 4 mg PO Q6H PRN (Reason: nausea and vomiting) Qty: 10 RF: 0 tamsulosin 0.4 mg capsule 0.4 mg PO QHS Qty: 14 RF: 0 Discharge Instructions Additional Instructions: no need to strain urine my office will contact pt to arrange cystoscopy stent removal and injections of Botox and Coaptite (outpt in OR) Activity:: Activity as Tolerated Shower/Bathe:: 24 hours Diet:: As Tolerated Discharge Orders Discharge Orders: Discharge Order (Routine); Ordered 08/07/21 Ordered By: Dm Saunders DS: Diagnosis Discharge Diagnosis (1) Left ureteral stone: Status: Acute (2) Mixed stress and urge urinary incontinence: Status: Acute
--- NOTE | 2021-08-07 09:55 | DI.RAD_ITS ---
Exam(s) XR RETROGRADE IN OR EXAM: XR RETROGRADE IN OR CLINICAL HISTORY: Left ureteral stone TECHNIQUE: 2D and realtime digital imaging was performed. COMPARISON: No exams were available for comparison FINDINGS: C-arm fluoroscopy was utilized by Dr. Saunders during retrograde ureterography zunilda sifuentes. Hard copy tere w placement of a left ureteral stent. IMPRESSION: RADIATION DOSE DELIVERED: akiko Lira=7.61 mGy
--- NOTE | 2021-08-07 09:56 | W.PM.OP ---
Date of service: 08/07/21 Time of Service: 09:56 Operative Note Operative Note DATE OF PROCEDURE: 08/07/21 PRE-OP DIAGNOSIS: left ureteral stone POST-OP DIAGNOSIS: same PROCEDURE: cystoscopy, bilateral retrograde pyelogram, left semirigid ureteroscopy, holmium laser lithotripsy, stone extraction, insert left ureteral stent SURGEON: Dm Saunders ANESTHESIA TYPE: Local By Surgeon and General:No Airway Refer to Anesthesia Record ESTIMATED BLOOD LOSS: 5 PATHOLOGY: other (stone for chemical analysis) COMPLICATIONS: None Patient was transported to: PACU Patient's condition: stable Implants: 6 [place] by 22 to 30 cm left ureteral stent Indications: This is a 71-year-old woman who recently presented to our emergency department with left abdominal and flank pain. She was identified as having a left ureteral stone as well as nonobstructing stones in both kidneys. Presents for ureteroscopy with holmium laser lithotripsy of her ureteral stone. If we are able, we plan on passing the flexible ureteroscope up to the left kidney to address the large lower pole stone on the left. She also describes both urgency and stress incontinence. She is interested in an injection of a bulking agent at the bladder neck and an injection of Botox into the detrusor muscle for the urgency. Findings: Left ureteral stone had migrated down to the pelvic brim Procedure Description: She was brought to the operating room on 08/07/2021. Given preoperative IV antibiotics. After successful induction of general anesthesia, she was placed in the dorsal lithotomy position. Her genitalia was prepped and draped. 2% Xylocaine jelly was instilled into the urethra to act as a local anesthetic. A 22 [place] rigid cystoscope was passed through the urethra into the bladder. The bladder was inspected with a 30 degree lens. The base of the bladder was slightly descended. Both ureteral orifices appeared normal. No papillary or nodular lesions were seen within the bladder. I cannulated the right ureteral orifice with a 5 [place] access catheter. Retrograde film was obtained by injecting Omnipaque through the access catheter under fluoroscopic guidance. No filling defects were seen within the ureter. The left orifice was then cannulated with an access catheter and on retrograde pyelogram, a filling defect was seen at the level of the pelvic brim. The ureter above this filling defect appeared dilated. I then passed a guidewire through the lumen of the access catheter and removed the access catheter and the scope leaving the wire in place. I then passed the semirigid ureteroscope through the urethra and into the bladder. I was able to engage the scope in the left ureteral orifice and advanced up to the level of the stone. The stone was then treated with a 365 ?m holmium laser fiber. I used a power setting of 200 and a rate of 8. I was concerned about retrograde movement of the stone if I were to use higher power settings. I was able to fragment the stone into multiple pieces. I then grasped the fragments in a 0 tip stone basket and removed them in their entirety. When I reintroduced the ureteroscope while grasping the stone fragments, the ureter appeared rather edematous, so we elected not to go after the lower pole stone under this anesthetic. Instead, I placed a 6 [place] ureteral stent. We chose a variable length stent and advanced it over our wire. The proximal end was curled in the renal pelvis and the distal and was curled in the bladder. We did not inject the Botox or coapt tight knowing that we would need to be returning to the operating room in a week or so. We will plan on addressing the left lower pole stone and her incontinence under the fat anesthetic. All stone fragments that were removed were sent to pathology for chemical analysis. The patient tolerated this procedure well. She was taken to the recovery room in stable condition.
--- NOTE | 2021-08-07 11:59 | W.ANESPOSTOP ---
Postoperative Evaluation Date, Time and Location Date Performed: 08/07/21 Time Performed: 11:45 Patient Location: Day Surgery Unit Vital Signs Most Recent Imported Vital Signs: Most Recent Vital Signs Temp Pulse Resp BP Pulse Ox 36.2 C L 65 16 152/75 H 97 08/07/21 11:30 08/07/21 11:30 08/07/21 11:30 08/07/21 11:30 08/07/21 11:30 Pain Score Most Recent Pain Score: Most Recent Pain Score Pain Level 0 08/07/21 11:30 Assessment Mental Status: Awake (Alert & Oriented to Patient Baseline) Airway and Respiratory Function: Patent airway with normal (patient baseline) respiratory exam Cardiovascular Function: Hemodynamically Stable Hydration Status: Adequately Hydrated Nausea & Vomiting: No Nausea or Vomiting Pain: Pt. Denies Any Pain Peripheral Nerve Block: Patient did not receive a nerve block
[2021-08-12 14:53] LABS: Source: Left Ureter
== END 2021-08-07 12:18 | disposition home or self-care (01) ==
PROVIDERS: PCP Family Medicine; Visit Provider Urology
PROC: (CPT 52356; principal; 2021-08-07 08:30)
DX: N20.1 Calculus of ureter (principal); N39.46 Mixed incontinence; R05.3 Chronic cough; K21.9 Gastro-esophageal reflux disease without esophagitis; Z79.899 Other long term (current) drug therapy
CPT/HCPCS: 52356; 74420; 82365; J0690; J1885; J2001; J2250; J2405; J2704; Q9967

== ENCOUNTER 2021-08-15 02:01 | Outpatient (CLI) | payer MEDICARE, BC, SELFPAY ==
[2021-08-15 10:34] LABS: Source Nasal/Nares
[2021-08-15 13:45] LABS: COVID-19 PCR Negative (Negative)
== END 2021-08-15 02:02 | disposition home or self-care (01) ==
LOC: LBO 02:01
PROVIDERS: PCP Family Medicine; Visit Provider Urology
DX: Z20.822 Contact with and (suspected) exposure to COVID-19 (principal); Z01.818 Encounter for other preprocedural examination
CPT/HCPCS: 87635

== ENCOUNTER 2021-08-18 06:22 | Day surgery (SDC) | payer MEDICARE, BC, SELFPAY ==
[2021-08-18] VITALS (9 sets, daily range): BP systolic 121–148; BP diastolic 62–80; PULSE 62–74; RESP 14–23; TEMP 36.2–36.5; O2SAT 94–96; BMI 27.2
--- NOTE | 2021-08-18 06:19 | ANES.PREOP_ITS ---
General Info Date of Service Date Performed: 08/18/21 Height: 5 ft 4 in Weight: 72 kg Body Mass Index (BMI): 27.2 Surgical Procedure: Operation Date: 08/18/21 07:40 Proposed Procedure Side Surgeon p Cystoscopy//Flexible Ureteroscopy/LT Ureteral Stent Removal/Posss. Laser Lithotripsy Left Dm Saunders MD s Injection of Botox into Detrusor Muscle, Injection of Coaptite into Bladder Neck Dm Saunders MD Meds Allergies and Home Medications Allergies Allergy/AdvReac Type Severity Reaction Status Date / Time erythromycin base Allergy Unknown Skin Rash Verified 08/18/21 06:29 oxycodone AdvReac Severe Other (See Verified 08/18/21 06:29 Comment) Home Medication Medication Instructions Recorded acyclovir 200 mg capsule 400 mg PO PRN PRN 10/11/13 clobetasol 0.05 % topical cream 1 applic TP DAILY 02/27/20 hydrocortisone 2.5 % topical cream 1 applic [place] QD-BID PRN 02/27/20 with perineal applicator mometasone 0.1 % topical cream 1 applic TP DAILY 02/27/20 omeprazole 20 mg capsule,delayed 40 mg PO DAILY cap 04/02/20 release melatonin 5 mg capsule 10 mg PO HS PRN cap 04/09/20 ascorbic acid (vitamin C) 1,000 mg 1,000 mg PO DAILY 07/27/21 tablet (Vitamin C) cholecalciferol (vitamin D3) 10 400 unit PO DAILY 07/27/21 mcg (400 unit) tablet (Vitamin D3) oxycodone 10 mg tablet 10 mg PO Q6H PRN #10 tab 07/27/21 tramadol 50 mg tablet 50 mg PO Q6H PRN #25 tab 08/01/21 clobetasol 0.05 % topical cream 1 applic TOPICAL DAILY 08/05/21 fluoride (sodium) 1.1 % dental 1 applic DENTAL DAILY 08/05/21 cream (SF 5000 Plus) tamsulosin 0.4 mg capsule 0.4 mg PO QHS #14 cap 08/08/21 ondansetron 4 mg disintegrating 4 mg PO Q6H PRN #10 tab 08/11/21 tablet Current Visit Medications: Current Medications Generic Name Dose Route Start Last Admin Trade Name Freq PRN Reason Stop Dose Admin OnabotulinumtoxinA 100 units/ 0 units 08/18/21 06:00 Sodium Chloride 10 ml IJ 08/18/21 16:00 DIRECTED MELLY Ringer's Solution 1,000 mls @ 80 mls/hr 08/18/21 06:00 IV 09/01/21 23:59 INFUSION MELLY Cefazolin Sodium/Dextrose 2 gm in 50 mls @ 100 mls/hr 08/18/21 06:00 Ancef Duplex IVPB 08/18/21 23:59 PREOP MELLY IV Miscellaneous Supplies 1 each 08/18/21 06:00 Iv Access IV 09/01/21 23:59 DIRECTED MELLY Sodium Chloride 0 ml 08/18/21 06:00 Normal Saline Flush 10 Ml Syr IV 09/01/21 23:59 PRN PRN Sodium Chloride 0 ml 08/18/21 06:00 Normal Saline 10 Ml Vial IJ 09/01/21 23:59 DIRECTED PRN Sterile Water 0 ml 08/18/21 06:00 Water,Injection,Sterile 10 Ml Vial IJ 09/01/21 23:59 DIRECTED PRN PFSH Active Problems Active Problems: Problem Status Onset Code H/O cold sores Z86.19 Seborrheic keratoses L82.1 Onychomycosis B35.1 Cataract H26.9 Herpes labialis B00.1 Urinary incontinence R32 Tubular adenoma of colon D12.6 Sebaceous cyst L72.3 Hydronephrosis with obstructing calculus N13.2 Left ureteral stone N20.1 Mixed stress and urge urinary incontinence N39.46 Hearing loss, bilateral H91.93 Medical History Medical History (Updated 08/18/21 @ 07:03 by Dm Saunders MD) Biceps tendinitis on left (11/22/14) Chronic cough Cystocele Pt. states she has a titanium staple They tacked up by bladder Dysphagia GERD (gastroesophageal reflux disease) GERD (gastroesophageal reflux disease) Left arm pain (11/22/14) Scalp lesion Surgical History Surgical History (Updated 08/18/21 @ 07:05 by Dm Saunders MD) History of bladder suspension procedure History of esophagogastroduodenoscopy (EGD) S/P colonoscopy - normal S/P cystoscopy with ureteral stent placement ureteroscopy with ureteral stone removal S/P tonsillectomy S/P tubal ligation Tobacco Smoking/Tobacco Use Status: Never Alcohol Alcohol Intake: current Alcohol intake frequency: 0-2 drinks per day Substance Use Substance use: Never Substance use type: does not use Details: last drink of alcohol on wednesday Vital Signs and Lab Results Vital Signs Most Recent Vital Signs in EMR: Temp Pulse Resp BP Pulse Ox 36.5 C 74 18 146/79 H 96 08/18/21 06:48 08/18/21 06:48 08/18/21 06:48 08/18/21 06:48 08/18/21 06:48 Lab Results Blood Type / Crossmatch: No Data to Display Complete Blood Count: White Blood Count 8.02 10^3/uL (4.4-10.8) 07/27/21 08:34 07/27/21 Red Blood Count 4.89 10^6/uL (3.93-5.22) 07/27/21 08:34 07/27/21 Hemoglobin 14.9 g/dL (11.2-15.7) 07/27/21 08:34 07/27/21 Hematocrit 44.4 % (36.0-46.0) 07/27/21 08:34 07/27/21 Platelet Count 230 10^3/uL (130-400) 07/27/21 08:34 07/27/21 Complete Metabolic Panel: Sodium Level 140 mmol/L (136-145) 07/27/21 08:34 07/27/21 Potassium Level 3.6 mmol/L (3.5-5.1) 07/27/21 08:34 07/27/21 Chloride Level 103 mmol/L (98-107) 07/27/21 08:34 07/27/21 Carbon Dioxide Level 23.5 mmol/L (21.0-32.0) 07/27/21 08:34 07/27/21 Blood Urea Nitrogen 23 mg/dL (7-18) H 07/27/21 08:34 07/27/21 Creatinine 1.0 mg/dL (0.55-1.02) 07/27/21 08:34 07/27/21 Estimated GFR/1.73 m2 54.35 (mL/min/1.73m2) 07/27/21 08:34 07/27/21 Magnesium Level 1.7 mg/dL (1.8-2.4) L 07/27/21 08:34 07/27/21 Calcium Level 9.3 mg/dL (8.5-10.1) 07/27/21 08:34 07/27/21 Albumin 3.9 g/dL (3.4-5.0) 07/27/21 08:34 07/27/21 Glucose Level 159 mg/dL (74-106) H 07/27/21 08:34 07/27/21 Liver Function Panel: Alanine Aminotransferase (ALT/SGPT) 18 U/L (14-59) 07/27/21 08:34 07/27/21 Aspartate Amino Transf (AST/SGOT) 12 U/L (15-37) L 07/27/21 08:34 07/06 09/23 Coagulation Panel: No Data to Display Cardiac Panel: Troponin I < 50 ng/L (<or=60) 07/27/21 Arterial Blood Gas: No Data to Display Venous Blood Gas: No Data to Display Pancreas Panel: Lipase 128 U/L (73-393) 07/27/21 08:34 07/27/21 Thyroid Panel: No Data to Display Infectious Disease: Coronavirus (COVID-19)(PCR) Negative (Negative) 08/15/21 08:52 08/15/21 Coronavirus 2019 Source Nasal/Nares 08/15/21 08:52 08/15/21 Blood Cultures: No Data to Display Toxicology Panel: No Data to Display Imaging and Studies Imaging and Studies Study information below may be from another EMR and interpreted by another provider. Please see original notes in EMR for more complete details. Stress Test Summary: 11/2014: negative for ischemia. Anesthesia Assessment and Plan Anesthesia History Personal History: No History of Anesthesia Complications and PONV Family History: No Family History of Anesthesia Complications Exercise Tolerance Exercise Tolerance: Metabolic Equivalents>4 Cardiac & Pulmonary Exam Cardiac Exam: Normal S1/S2 Heart Sounds Pulmonary Exam: Clear Bilateral Breath Sounds Implantable Cardiac Device Does patient have a Pacemaker or an ICD?: No Airway Exam Known Difficult Airway: No Mallampati Class: 1 Mouth Opening: Normal (> 3cm) Thyromental Distance: Greater than 3 cm Neck Range of Motion: Full ROM Neck Circumference: Normal Teeth Condition: Normal Dentition ASA Classification ASA Score: ASA 2 Emergency Case?: No NPO Status NPO Status: NPO Clears >2 hours, Solids >8 hours Anesthesia Plan Resuscitation Status: Full Code Anesthesia Technique: General Anesthesia Airway Planned: LMA Monitors Used: Standard Monitors Preoperative Comments:: 71 yo female for cysto/laser lithotripsy. Sig PMHx: GERD, chronic cough, never smoker, occ EtOH. Stress Test: neg. Previous Anes: LMA 4. very nervous/uncomfortable ( sig grimacing during IV). denies health history change.
--- NOTE | 2021-08-18 06:52 | W.PM.HP.N ---
Date of service: 08/18/21 Time of Service: 06:52 Assessment and Plan Assessment and plan (1) Mixed stress and urge urinary incontinence: Status: Acute Assessment and plan: For injection of both Botox into the detrusor and Coaptite at bladder neck (2) Kidney stones: Status: Chronic Assessment and plan: For stent removal and ureteroscopy to treat renal stone History of Present Illness History of Present Illness Chief Complaint: Left renal stone Narrative: This is a 71 year old woman who was identified as having a left ureteral stone as well as a nonobstructing left renal stone. We were able to treat the left ureteral stone ureteroscopically but we were unable to access the left renal stone at the same procedure. A stent was left in place and she returns now for ureteroscopy and treatment of her renal stone. She has a history of mixed urinary incontinence and has had a bladder suspension previously. She is agreeable to an injection of Botox into the detrusor (for the urgency component) and an injection of Coaptite at the bladder neck (for the ISD component). Review of Systems Narrative: No fevers or chills Decreased hearing. No vision change or dysphasia No diabetes or thyroid No shortness of breath, cough or hemoptysis No chest pain or palpitations No nausea, vomiting, hepatitis, ulcers, jaundice, diarrhea or constipation No seizures, strokes or peripheral neuropathy No bleeding disorders or anemia No gout PFSH All Active Problems (Updated 08/18/21 @ 07:03 by Dm Saunders MD) Kidney stones (Chronic) H/O cold sores (Chronic) Seborrheic keratoses (Acute) Onychomycosis (Acute) Cataract (Chronic) Herpes labialis (Acute) Urinary incontinence (Acute) Pt states r/o incontenece she leaks. Tubular adenoma of colon (Acute) Sebaceous cyst (Acute) Hydronephrosis with obstructing calculus (Acute) Left ureteral stone (Acute) Mixed stress and urge urinary incontinence (Acute) Hearing loss, bilateral (Acute) Medical History (Updated 08/18/21 @ 07:03 by Dm Saunders MD) Biceps tendinitis on left (11/22/14) Chronic cough Cystocele Pt. states she has a titanium staple They tacked up by bladder Dysphagia GERD (gastroesophageal reflux disease) GERD (gastroesophageal reflux disease) Left arm pain (05/21/15) Scalp lesion Surgical History (Updated 08/18/21 @ 07:05 by Dm Saunders MD) History of bladder suspension procedure History of esophagogastroduodenoscopy (EGD) S/P colonoscopy - normal S/P cystoscopy with ureteral stent placement ureteroscopy with ureteral stone removal S/P tonsillectomy S/P tubal ligation Social History (Updated 08/05/21 @ 14:35 by Lizzie English RN, RN) Smoking/Tobacco Use Status: Never Smoking risk assessment performed?: Yes Alcohol Intake: current Alcohol Intake frequency: 0-2 drinks per day Drug use: Never Substance use type: does not use Details: last drink of alcohol on wednesday Household members: spouse What is your relationship status?: Panel score (0-1 are the most socially isolated patients): 1 Do you feel safe at home: Yes Do you feel safe in your relationship?: Yes Meds Allergies and Home Medications Allergies Allergy/AdvReac Type Severity Reaction Status Date / Time erythromycin base Allergy Unknown Skin Rash Verified 08/18/21 06:29 oxycodone AdvReac Severe Other (See Verified 08/18/21 06:29 Comment) Home Medications Medication Instructions Recorded Confirmed Type acyclovir 200 mg capsule 400 mg PO PRN PRN 10/11/13 08/18/21 History clobetasol 0.05 % topical cream 1 applic TP DAILY 02/27/20 08/07/21 History hydrocortisone 2.5 % topical cream 1 applic [place] QD-BID PRN 02/27/20 08/18/21 History with perineal applicator mometasone 0.1 % topical cream 1 applic TP DAILY 02/27/20 08/18/21 History omeprazole 20 mg capsule,delayed 40 mg PO DAILY cap 04/02/20 08/18/21 History release melatonin 5 mg capsule 10 mg PO HS PRN cap 04/09/20 08/18/21 History ascorbic acid (vitamin C) 1,000 mg 1,000 mg PO DAILY 07/27/21 08/18/21 History tablet (Vitamin C) cholecalciferol (vitamin D3) 10 400 unit PO DAILY 07/27/21 08/07/21 History mcg (400 unit) tablet (Vitamin D3) oxycodone 10 mg tablet 10 mg PO Q6H PRN #10 tab 07/27/21 08/18/21 Rx tramadol 50 mg tablet 50 mg PO Q6H PRN #25 tab 08/01/21 08/18/21 Rx clobetasol 0.05 % topical cream 1 applic TOPICAL DAILY 08/05/21 08/18/21 History fluoride (sodium) 1.1 % dental 1 applic DENTAL DAILY 08/05/21 08/07/21 History cream (SF 5000 Plus) tamsulosin 0.4 mg capsule 0.4 mg PO QHS #14 cap 08/08/21 08/18/21 Rx ondansetron 4 mg disintegrating 4 mg PO Q6H PRN #10 tab 08/11/21 08/18/21 Rx tablet Exam Const General: cooperative and comfortable Neck Neck: supple Resp Effort & Inspection: normal respiratory effort Auscultation: clear to auscultation bilaterally Cardio Rate: regular rate Rhythm: regular rhythm GI Palpation: soft and no masses Neuro General: patient alert, patient awake and patient oriented x3 Results Imaging Abdomen CT scan report/results: report reviewed and image reviewed
[2021-08-18] MEDS: Lactated Ringers 1,000 ML 80 ML IV (07:26)
[2021-08-18] MEDS: ceFAZolin 2 GM/50 ML BAG IVPB (07:30)
[2021-08-18] MEDS: Lidocaine 2% Jelly 6 ML SYR (07:47)
[2021-08-18] MEDS: Omnipaque 300 MG/ML 50 ML BTL (07:53)
--- NOTE | 2021-08-18 08:01 | DI.RAD_ITS ---
Exam(s) XR RETROGRADE IN OR EXAM: XR RETROGRADE IN OR CLINICAL HISTORY: Mixed stress/urinary incontinence, kidney stones. TECHNIQUE: 2D digital imaging was performed. COMPARISON: No exams were available for comparison FINDINGS: Fluoroscopy was provided during urologic procedure Please see procedure report for details. IMPRESSION: Total fluoroscopy time 6.2 seconds Cumulative dose= 1.04mGy DATA REPOSITORY: RADIATION DOSE DELIVERED:
[2021-08-18] MEDS: [UNRECOGNIZED DRUG - OTHER] IJ (08:39)
[2021-08-18] MEDS: NORMAL SALINE IJ (08:39)
--- NOTE | 2021-08-18 08:47 | W.PM.DSUDISC ---
Discharge Plan Disposition Patient Disposition: HOME Condition: Stable Discharge Details Reason For Visit: renal stone/incontinence Attending Provider: Dm Saunders Primary Care Provider: Guadalupe Delatorre Home Meds and New Rx's Prescriptions: No Action acyclovir 200 MG capsule 400 mg PO PRN PRN0RF clobetasol 0.05 % cream 1 applic TP DAILY 0RF mometasone 0.1 % cream 1 applic TP DAILY 0RF hydrocortisone 2.5 % cream with perineal applicator 1 applic [place] QD-BID PRN0RF omeprazole 20 mg capsule,delayed release(DR/EC) 40 mg PO DAILY 0RF melatonin 5 mg capsule 10 mg PO HS PRN0RF tramadol 50 mg tablet 50 mg PO Q6H PRN (Reason: pain) Qty: 25 0RF Rx Instructions: may take along with NSAIDS/Tylenol fluoride (sodium) [SF 5000 Plus] 1.1 % cream 1 applic dental DAILY 0RF clobetasol 0.05 % cream 1 applic topical DAILY 0RF tamsulosin 0.4 mg capsule 0.4 mg PO QHS Qty: 14 0RF ondansetron 4 mg tablet,disintegrating 4 mg PO Q6H PRN (Reason: nausea and vomiting) Qty: 10 0RF ascorbic acid (vitamin C) [Vitamin C] 1,000 mg Tablet 1,000 mg PO DAILY 0RF cholecalciferol (vitamin D3) [Vitamin D3] 10 mcg (400 unit) Tablet 400 unit PO DAILY 0RF oxycodone 10 mg tablet 10 mg PO Q6H PRN (Reason: pain) Qty: 10 0RF Discharge Instructions Additional Instructions: No need to strain urine followup appt 4 to 6 weeks with renal US please ask pt to call office in @ 1 week with progress report regarding incontinence Activity:: Activity as Tolerated Shower/Bathe:: 24 hours Diet:: As Tolerated Discharge Orders Discharge Orders: Discharge Order (Routine); Ordered 08/18/21 Ordered By: Dm Saunders DS: Diagnosis Discharge Diagnosis (1) Mixed stress and urge urinary incontinence: Status: Acute (2) Kidney stones: Status: Chronic
--- NOTE | 2021-08-18 08:51 | W.PM.OP ---
Date of service: 08/18/21 Time of Service: 08:51 Operative Note Operative Note DATE OF PROCEDURE: 08/18/21 PRE-OP DIAGNOSIS: 1. Left renal stone 2. Mixed urinary incontinence POST-OP DIAGNOSIS: same PROCEDURE: Cystoscopy, remove left ureteral stent, left retrograde pyelogram, left flexible ureteroscopy with stone extraction, injection of Botox into detrusor muscle, injection of Coaptite into bladder neck SURGEON: Dm Saunders ANESTHESIA TYPE: Local By Surgeon and General LMA/ETT Refer to Anesthesia Record ESTIMATED BLOOD LOSS: 10 PATHOLOGY: other (stone for chemical analysis) Implants: Coaptite at bladder neck Indications: This is a 71-year-old woman who initially presented with a left ureteral stone causing hydronephrosis. She was found to have a nonobstructing left lower pole stone as well. We were able to treat the ureteral stone with ureteroscopy and holmium laser lithotripsy. We left a ureteral stent in place. He presents now for stent removal and flexible ureteroscopy to address the lower pole renal stone. She has a history of mixed urinary incontinence. 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 She has had a bladder suspension previously. She is agreeable to an injection of Botox into the detrusor muscle for the urgency incontinence and an injection of coapt tight at the bladder neck for the intrinsic sphincter deficiency. Findings: Lower pole stone Procedure Description: The patient was given IV antibiotics and brought to the operating room on 08/18/2021. After successful induction of general anesthesia, she was placed in the dorsal lithotomy position. Her genitalia was prepped and draped. 2% Xylocaine jelly was instilled into the urethra. A 22 Chadian rigid cystoscope was passed through the urethra into the bladder. The bladder was inspected with a 30 degree lens. A stent could be seen protruding from the left ureteral orifice. The stent was grasped with alligator forceps and brought to the level of the urethral meatus. A Glidewire was then advanced through the stent and the stent was removed leaving the wire in place. A dual-lumen catheter was advanced over the wire and a retrograde pyelogram was obtained by injecting Omnipaque through the second lumen of the dual-lumen catheter under fluoroscopic guidance. This allowed us to outline the calyces. The radio opaque stone was seen in the lower pole calyx. A second wire was positioned and the dual-lumen catheter was removed. We chose one of the wires as a working wire and the other as a safety wire. We passed a ureteral access sheath over the working wire leaving the safety wire in place. The flexible ureteroscope was then passed through the access sheath and the scope was maneuvered into the left lower pole calyces. The stone was visualized and grasped in a 0 tip stone basket. The stone was then removed in its entirety. Stone was sent to pathology for chemical analysis. The ureteroscope was removed. A 20 Chadian urethrotome sheath was then passed through the urethra into the bladder. Using the transurethral injection working element, we then injected a total of 100 units of Botox into the detrusor muscle. We injected into the posterior bladder wall in a grid configuration consisting of 20 injection sites. There were 4 horizontal rows and 5 vertical rows in our grid. The 100 units of Botox was mixed in 10 mL of dilutant and each injection site received 0.5 mL solution. We then withdrew the scope to the bladder neck and injected 1 mL of Coaptite submucosally. The bladder neck initially appeared open and after injecting the coapt tight, the mucosa closed nicely. The scope was then removed. The bladder was drained by straight cath. The catheter was then removed. He tolerated this procedure well.
--- NOTE | 2021-08-18 09:32 | W.ANESPOSTOP ---
Postoperative Evaluation Date, Time and Location Date Performed: 08/18/21 Time Performed: 09:32 Patient Location: PACU Vital Signs Most Recent Imported Vital Signs: Most Recent Vital Signs Temp Pulse Resp BP Pulse Ox 36.2 C L 65 23 122/63 95 08/18/21 09:16 08/18/21 09:16 08/18/21 09:16 08/18/21 09:16 08/18/21 09:16 Pain Score Most Recent Pain Score: Most Recent Pain Score Pain Level 2 08/18/21 09:16 Assessment Mental Status: Awake (Alert & Oriented to Patient Baseline) Airway and Respiratory Function: Patent airway with normal (patient baseline) respiratory exam Cardiovascular Function: Hemodynamically Stable Hydration Status: Adequately Hydrated Nausea & Vomiting: No Nausea or Vomiting Pain: Pain is tolerable per patient Peripheral Nerve Block: Patient did not receive a nerve block
[2021-08-18] MEDS: Phenazopyridine 200 MG TAB PO (09:53)
[2021-08-18] MEDS: Droperidol 5 MG/2 ML VIAL 0.625 MG IVP (10:07)
[2021-08-20 16:02] LABS: Source: Left Ureter
== END 2021-08-18 11:26 | disposition home or self-care (01) ==
PROVIDERS: PCP Family Medicine; Visit Provider Urology
PROC: (CPT 52287; principal; 2021-08-18 07:30)
PROC: (CPT 52287; 2021-08-18 07:30)
DX: N20.0 Calculus of kidney (principal); N36.42 Intrinsic sphincter deficiency (ISD); N39.46 Mixed incontinence; N32.81 Overactive bladder
CPT/HCPCS: 52287; 52352; 74420; 82365; J0585; J0690; J1100; J1790; J1885; J2405; J2704; L8606; Q9967

== ENCOUNTER 2021-09-08 17:18 | Outpatient (REF) | payer MEDICARE, BC, SELFPAY ==
[2021-09-09 09:30] LABS: Abs Immature Grans 0.03 10^3/uL (0.0-0.06); Absolute Basophil Count 0.04 10^3/uL (0.0-0.2); Absolute Eosinophil Count 0.78 10^3/uL (0.0-0.7); Absolute Lymphocyte Count 1.67 10^3/uL (1.2-3.4); Absolute Monocyte Count 0.43 10^3/uL (0.1-0.8); Absolute Neutrophil Count 3.96 10^3/uL (1.2-6.7); Basophils % 0.6; Eosinophils % 11.3; HCT 45.2 % (36.0-46.0); HGB 14.3 g/dL (11.2-15.7); Immature Grans % 0.4; Lymphocytes % 24.2; MCHC 31.6 % (32.0-36.0); MCV 94.8 fL (80-95); MPV 11.5 fL (8.0-11.0); Monocytes % 6.2; Neutrophils % 57.3; Nucleated RBC 0 %; Platelet Count 285 10^3/uL (130-400); RBC 4.77 10^6/uL (3.93-5.22); RDW 13.1 % (11.7-14.6); RDW-SD 45.3 fL; WBC 6.91 10^3/uL (4.4-10.8)
[2021-09-09 09:34] LABS: ESR 4 mm/hr (0-30)
[2021-09-09 12:52] LABS: ALT 27 U/L (14-59); AST 18 U/L (15-37); Albumin 3.6 g/dL (3.4-5.0); Alkaline Phosphatase 84 U/L (46-116); BUN 12 mg/dL (7-18); Bilirubin, Total 0.3 mg/dL (0.2-1.0); CO2 27.7 mmol/L (21.0-32.0); Chloride 107 mmol/L (98-107); Potassium 3.7 mmol/L (3.5-5.1); Sodium 144 mmol/L (136-145); Total Protein 6.6 g/dL (6.4-8.2)
== END 2021-09-08 17:19 | disposition home or self-care (01) ==
LOC: NCHCN 17:18
PROVIDERS: PCP Family Medicine; Visit Provider Family Medicine
DX: M62.81 Muscle weakness (generalized) (principal); L27.0 Generalized skin eruption due to drugs and medicaments taken internally; M25.59 Pain in other specified joint
CPT/HCPCS: 80053; 84520; 85652; 82040; 82247; 82374; 82435; 84075; 84132; 84155; 84295; 84443; 84450; 84460; 85025; 86038; 86140; 86431

== ENCOUNTER 2021-09-22 02:00 | Outpatient (CLI) | payer MEDICARE, BC, SELFPAY ==
--- NOTE | 2021-09-22 07:00 | DI.US_ITS ---
Exam(s) US RENAL EXAM: US RENAL CLINICAL HISTORY: r/o hydronephrosis after ureteroscopy,lt ureteral stone, kidney stones, TECHNIQUE: Ultrasound of both kidneys performed using standard protocol. COMPARISON: No exams were available for comparison FINDINGS: RIGHT KIDNEY: Measures 10 cm in length. No cysts evident. Normal cortical thickness and corticomedullary differenti ation .No solid masses No intrarenal calculi nor hydronephrosis. LEFT KIDNEY: Measures 11 cm in length. No cysts evident. Normal cortical thickness and corticomedullary different iaion. No solids masses. No intrarenal calculi nor hydonephrosis. URINARY BLADDER: Prevoid volume is 209 cc Postvoid volume is 77 cc No evidence of bladder mass nor diverticuli. Ureterovesical jets: Both identified and appear symmetrical IMPRESSION: 1. No significant ultrasound findings in the kidneys. 2. There is a moderate amount of postvoid residual urine in the bladder following micturition (77 cc ). DATA REPOSITORY:
== END 2021-09-22 02:20 ==
PROVIDERS: PCP Family Medicine; Visit Provider Urology
DX: N20.0 Calculus of kidney (principal); N20.1 Calculus of ureter; R33.9 Retention of urine, unspecified
CPT/HCPCS: 76770

== ENCOUNTER 2021-09-22 03:31 | Outpatient (CLI) | payer MEDICARE, BC, SELFPAY ==
[2021-09-22 14:11] LABS: C-Reactive Protein 0.16 mg/dL (0.0-0.3); Calcium 8.7 mg/dL (8.5-10.1); Glucose 109 mg/dL (74-106)
[2021-09-22 21:56] LABS: Rheumatoid Factor <8.6 IU/mL (<12.0)
[2021-09-23 13:50] LABS: ANA Interpretation Positive (Negative); ANA Titer Pattern 1:160 Speckled
== END 2021-09-22 03:32 | disposition home or self-care (01) ==
LOC: LBO 03:31
PROVIDERS: PCP Family Medicine; Visit Provider Family Medicine
DX: M25.59 Pain in other specified joint (principal); M62.81 Muscle weakness (generalized); L27.0 Generalized skin eruption due to drugs and medicaments taken internally
CPT/HCPCS: 36415; 76770; 82947; 82310; 86038; 86140; 86431

== ENCOUNTER → 2021-09-29 10:46 | Outpatient (BNVA) | payer MEDICARE, BC, SELFPAY | PROVIDERS: PCP Family Medicine; Referring Provider Family Medicine; Visit Provider Nurse Practitioner Gerontology | DX: N20.0 Calculus of kidney (principal); R32 Unspecified urinary incontinence | CPT/HCPCS: 99214 ==

== ENCOUNTER → 2022-03-04 10:25 | Outpatient (BNVA) | payer MEDICARE, BC, SELFPAY | PROVIDERS: PCP Family Medicine; Referring Provider Family Medicine; Visit Provider Nurse Practitioner Gerontology | DX: R32 Unspecified urinary incontinence (principal) | CPT/HCPCS: 99443 ==

== ENCOUNTER 2022-03-17 14:06 | Outpatient (REF) | payer MEDICARE, BC, SELFPAY ==
[2022-03-17 13:26] LABS: Source Nasal/Nares
[2022-03-17 15:25] LABS: COVID-19 PCR Negative (Negative)
== END 2022-03-17 14:07 | disposition home or self-care (01) ==
LOC: LBN 14:06
PROVIDERS: PCP Family Medicine; Visit Provider Urology
DX: Z20.822 Contact with and (suspected) exposure to COVID-19 (principal)
CPT/HCPCS: 87635

== ENCOUNTER 2022-03-19 06:15 | Day surgery (SDC) | payer MEDICARE, BC, SELFPAY ==
[2022-03-19 06:33] VITALS: BP 141/83; PULSE 74; RESP 14; TEMP 36.6; O2SAT 96
--- NOTE | 2022-03-19 06:42 | W.PM.HP.N ---
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 History of Present Illness History of Present Illness Chief Complaint: Mixed urinary incontinence Narrative: This is a 72-year-old woman who has a history of mixed urinary incontinence. Her incontinence seems to be a combination of urgency incontinence and intrinsic sphincter deficiency. Previously, she had received injections of both Botox into the detrusor muscle and coapt tight at the bladder neck. She did quite well for a few weeks after the injections, but her incontinence is gradually worsened. She is now leaking with no sense of urgency and minimal activity. She denies any dysuria or gross hematuria. Review of Systems Narrative: c/o headache. No fevers or chills Decreased hearing acuity. No vision change or dysphasia No diabetes or thyroid dysfunction No shortness of breath, cough or hemoptysis No chest pain or palpitations No nausea, vomiting, hepatitis, ulcers, jaundice No seizures, strokes or peripheral neuropathy No bleeding disorders or anemia No gout PFSH All Active Problems Kidney stones (Chronic) H/O cold sores (Chronic) Seborrheic keratoses (Acute) Onychomycosis (Acute) Cataract (Chronic) Herpes labialis (Acute) Urinary incontinence (Acute) Pt states r/o incontenece she leaks. Tubular adenoma of colon (Acute) Sebaceous cyst (Acute) Left ureteral stone (Acute) Mixed stress and urge urinary incontinence (Acute) Hearing loss, bilateral (Acute) Medical History Biceps tendinitis on left (11/22/14) Chronic cough Cystocele Pt. states she has a titanium staple They tacked up by bladder Dysphagia GERD (gastroesophageal reflux disease) GERD (gastroesophageal reflux disease) Left arm pain (11/22/14) Scalp lesion Surgical History History of bladder suspension procedure History of esophagogastroduodenoscopy (EGD) S/P colonoscopy - normal S/P cystoscopy with ureteral stent placement ureteroscopy with ureteral stone removal S/P tonsillectomy S/P tubal ligation Social History (Updated 08/05/21 @ 14:35 by Lizzie English RN, RN) Smoking/Tobacco Use Status: Never Smoking risk assessment performed?: Yes Alcohol Intake: current Alcohol Intake frequency: a few times a month Alcohol type: wine Drug use: Never Substance use type: does not use Details: alcohol: t-14 Household members: spouse What is your relationship status?: Panel score (0-1 are the most socially isolated patients): 1 Do you feel safe at home: Yes Do you feel safe in your relationship?: Yes Meds Allergies and Home Medications Allergies Allergy/AdvReac Type Severity Reaction Status Date / Time erythromycin base Allergy Unknown Skin Rash Verified 03/19/22 06:27 oxycodone AdvReac Severe severe Verified 03/19/22 06:27 vomiting Home Medications Medication Instructions Recorded Confirmed Type acyclovir 200 mg capsule 400 mg PO PRN PRN 10/11/13 03/19/22 History clobetasol 0.05 % topical cream 1 applic topical DAILY 02/27/20 03/19/22 History hydrocortisone 2.5 % topical cream 1 applic MS QD-BID PRN 02/27/20 03/19/22 History with perineal applicator mometasone 0.1 % topical cream 1 applic topical DAILY 02/27/20 03/19/22 History omeprazole 20 mg capsule,delayed 20 mg PO DAILY 04/02/20 03/19/22 History release melatonin 5 mg capsule 10 mg PO HS PRN 04/09/20 03/19/22 History ascorbic acid (vitamin C) 1,000 mg 1,000 mg PO DAILY 07/27/21 03/19/22 History tablet (Vitamin C) cholecalciferol (vitamin D3) 10 400 unit PO DAILY 07/27/21 03/19/22 History mcg (400 unit) tablet (Vitamin D3) fluoride (sodium) 1.1 % dental 1 applic dental DAILY 08/05/21 03/19/22 History cream (SF 5000 Plus) acetaminophen 500 mg capsule 500 mg PO Q6H PRN 03/19/22 03/19/22 History Exam Const General: cooperative and comfortable Neck Neck: supple Resp Effort & Inspection: normal respiratory effort Auscultation: clear to auscultation bilaterally Cardio Rate: regular rate Rhythm: regular rhythm GI Inspection: normal to inspection Palpation: soft and no masses Neuro General: patient alert, patient awake and patient oriented x3
[2022-03-19] MEDS: Sulfameth/Trimeth DS TAB 1 TAB PO (06:53)
[2022-03-19] MEDS: Lactated Ringers 1,000 ML 80 ML IV (07:00)
[2022-03-19 07:04] VITALS: BMI 27.8
--- NOTE | 2022-03-19 07:10 | W.ANESPRE ---
General Info Date of Service Date Performed: 03/19/22 Height: 5 ft 4 in Weight: 73.6 kg Body Mass Index (BMI): 27.8 Surgical Procedure: Operation Date: 03/19/22 07:40 Proposed Procedure Side Surgeon p Cystoscopy/Transuretheral Injection of Coaptite Dm Saunders MD Meds Allergies and Home Medications Allergies Allergy/AdvReac Type Severity Reaction Status Date / Time erythromycin base Allergy Unknown Skin Rash Verified 03/19/22 06:27 oxycodone AdvReac Severe severe Verified 03/19/22 06:27 vomiting Home Medication Medication Instructions Recorded acyclovir 200 mg capsule 400 mg PO PRN PRN 10/11/13 clobetasol 0.05 % topical cream 1 applic topical DAILY 02/27/20 hydrocortisone 2.5 % topical cream 1 applic IN QD-BID PRN 02/27/20 with perineal applicator mometasone 0.1 % topical cream 1 applic topical DAILY 02/27/20 omeprazole 20 mg capsule,delayed 20 mg PO DAILY 04/02/20 release melatonin 5 mg capsule 10 mg PO HS PRN 04/09/20 ascorbic acid (vitamin C) 1,000 mg 1,000 mg PO DAILY 07/27/21 tablet (Vitamin C) cholecalciferol (vitamin D3) 10 400 unit PO DAILY 07/27/21 mcg (400 unit) tablet (Vitamin D3) fluoride (sodium) 1.1 % dental 1 applic dental DAILY 08/05/21 cream (SF 5000 Plus) acetaminophen 500 mg capsule 500 mg PO Q6H PRN 03/19/22 Current Visit Medications: Current Medications Generic Name Dose Route Start Last Admin Trade Name Monalisa PRN Reason Stop Dose Admin Ringer's Solution 1,000 mls @ 80 mls/hr 03/19/22 06:00 IV 04/17/22 23:59 INFUSION MELLY IV Miscellaneous Supplies 1 each 03/19/22 06:00 Iv Access IV 04/17/22 23:59 DIRECTED MELLY Sodium Chloride 0 ml 03/19/22 06:00 Normal Saline Flush 10 Ml Syr IV 04/17/22 23:59 PRN PRN Sodium Chloride 0 ml 03/19/22 06:00 Normal Saline 10 Ml Vial IJ 04/17/22 23:59 DIRECTED PRN Sterile Water 0 ml 03/19/22 06:00 Water,Injection,Sterile 10 Ml Vial IJ 04/17/22 23:59 DIRECTED PRN Trimethoprim/Sulfamethoxazole 1 tab 03/19/22 06:00 Sulfameth/Trimeth Ds Tab PO 03/19/22 16:00 PREOP MELLY PFSH Active Problems Active Problems: Problem Status Onset Code Kidney stones N20.0 H/O cold sores Z86.19 Seborrheic keratoses L82.1 Onychomycosis B35.1 Cataract H26.9 Herpes labialis B00.1 Urinary incontinence R32 Tubular adenoma of colon D12.6 Sebaceous cyst L72.3 Left ureteral stone N20.1 Mixed stress and urge urinary incontinence N39.46 Hearing loss, bilateral H91.93 Medical History Medical History Biceps tendinitis on left (11/22/14) Chronic cough Cystocele Pt. states she has a titanium staple They tacked up by bladder Dysphagia GERD (gastroesophageal reflux disease) GERD (gastroesophageal reflux disease) Left arm pain (11/22/14) Scalp lesion Surgical History Surgical History History of bladder suspension procedure History of esophagogastroduodenoscopy (EGD) S/P colonoscopy - S/P cystoscopy with ureteral stent placement ureteroscopy with ureteral stone removal S/P tonsillectomy S/P tubal ligation Tobacco Smoking/Tobacco Use Status: Never Alcohol Alcohol Intake: current Alcohol intake frequency: a few times a month Substance Use Substance use: Never Substance use type: does not use Vital Signs and Lab Results Vital Signs Most Recent Vital Signs in EMR: Temp Pulse Resp BP Pulse Ox 36.6 C 74 14 141/83 H 96 03/19/22 06:33 03/19/22 06:33 03/19/22 06:33 03/19/22 06:33 03/19/22 06:33 Lab Results Blood Type / Crossmatch: No Data to Display Complete Blood Count: No Data to Display Complete Metabolic Panel: No Data to Display Liver Function Panel: No Data to Display Coagulation Panel: No Data to Display Cardiac Panel: No Data to Display Arterial Blood Gas: No Data to Display Venous Blood Gas: No Data to Display Pancreas Panel: No Data to Display Thyroid Panel: No Data to Display Infectious Disease: Coronavirus (COVID-19)(PCR) Negative (Negative) 03/17/22 11:20 Coronavirus 2019 Source Nasal/Nares 03/17/22 11:20 Blood Cultures: No Data to Display Toxicology Panel: No Data to Display Imaging and Studies Imaging and Studies Study information below may be from another EMR and interpreted by another provider. Please see original notes in EMR for more complete details. Stress Test Summary: 11/2014: negative for ischemia. Anesthesia Assessment and Plan Anesthesia History Personal History: PONV Family History: No Family History of Anesthesia Complications Exercise Tolerance Exercise Tolerance: Metabolic Equivalents>4 Cardiac & Pulmonary Exam Cardiac Exam: Normal S1/S2 Heart Sounds Pulmonary Exam: Clear Bilateral Breath Sounds Implantable Cardiac Device Does patient have a Pacemaker or an ICD?: No Airway Exam Known Difficult Airway: No Mallampati Class: 1 Mouth Opening: Normal (> 3cm) Thyromental Distance: Greater than 3 cm Neck Range of Motion: Full ROM Neck Circumference: Normal Teeth Condition: Normal Dentition ASA Classification ASA Score: ASA 2 Emergency Case?: No NPO Status NPO Status: NPO Clears >2 hours, Solids >8 hours Anesthesia Plan Resuscitation Status: Full Code Anesthesia Technique: General Anesthesia Airway Planned: LMA Monitors Used: Standard Monitors Preoperative Comments:: 71 yo female for cysto/laser lithotripsy. Sig PMHx: GERD/dysphagia, chronic cough, never smoker, occ EtOH. Stress Test: neg. Previous Anes: LMA 4 x 2.
[2022-03-19] MEDS: Lidocaine 2% Jelly 6 ML SYR (07:37)
--- NOTE | 2022-03-19 07:48 | W.PM.DSUDISC ---
Discharge Plan Disposition Patient Disposition: HOME Condition: Good Discharge Details Reason For Visit: Incontinence Attending Provider: Dm Saunders Primary Care Provider: Guadalupe Delatorre Home Meds and New Rx's Prescriptions: No Action acyclovir 200 MG capsule 400 mg PO PRN PRN clobetasol 0.05 % cream 1 applic TP DAILY mometasone 0.1 % cream 1 applic TP DAILY hydrocortisone 2.5 % cream with perineal applicator 1 applic AL QD-BID PRN omeprazole 20 mg capsule,delayed release(DR/EC) 20 mg PO DAILY melatonin 5 mg capsule 10 mg PO HS PRN fluoride (sodium) [SF 5000 Plus] 1.1 % cream 1 applic dental DAILY ascorbic acid (vitamin C) [Vitamin C] 1,000 mg Tablet 1,000 mg PO DAILY cholecalciferol (vitamin D3) [Vitamin D3] 10 mcg (400 unit) Tablet 400 unit PO DAILY acetaminophen [Tylenol Extra Strength] 500 mg Capsule 500 mg PO Q6H PRN Discharge Instructions Additional Instructions: call 1 week with progress report Activity:: Activity as Tolerated Shower/Bathe:: 24 hours Diet:: As Tolerated Discharge Orders Discharge Orders: Discharge Order (Routine); Ordered 03/19/22 Ordered By: Dm Saunders DS: Diagnosis Discharge Diagnosis (1) Mixed stress and urge urinary incontinence: Status: Acute
--- NOTE | 2022-03-19 07:50 | ROE_ITS ---
Date of service: 03/19/22 Time of Service: 07:50 Operative Note Operative Note DATE OF PROCEDURE: 03/19/22 PRE-OP DIAGNOSIS: Incontinence due to Intrinsic Sphincter deficiency POST-OP DIAGNOSIS: same PROCEDURE: Cystoscopy with transurethral Injection of Coaptite at the Bladder Neck SURGEON: Dm Saunders ANESTHESIA TYPE: Local By Surgeon and General:No Airway Refer to Anesthesia Record ESTIMATED BLOOD LOSS: 0 PATHOLOGY: none sent COMPLICATIONS: None Patient was transported to: same day Patient's condition: stable Implants: 2 vials Coaptite Indications: This is a 72-year-old woman who has a history of mixed urinary incontinence. She has both urgency incontinence along with intrinsic sphincter deficiency. She has urinary incontinence without much activity. Her symptoms are consistent with the intrinsic sphincter deficiency. She presents for repeat injection of a bulking agent at the bladder neck Findings: Normal bladder Procedure Description: The patient was given oral antibiotics and brought to the operating room on 03/19/2022. After successful induction of general anesthesia without intubation, she was placed in the dorsal lithotomy position. Her genitalia is prepped and draped. 2% Xylocaine jelly was instilled into the urethra. A 20 [place] urethrotome sheath was passed through the urethra into the bladder. The bladder and bladder neck were then inspected with a 30 degree lens. The bladder appeared normal with no papillary or nodular lesions. Both ureteral orifices appeared normal. The bladder neck showed a small amount of residual Coaptite submucosally. We then utilized a transurethral injection system and injected an additional 2 vials of Coaptite submucosally. This resulted in excellent coaptation of the bladder neck mucosa when it was viewed cystoscopically. The bladder was drained with a 14 [place] catheter. The patient tolerated this procedure well with no complications.
[2022-03-19 07:56] VITALS: BP 122/74; PULSE 78; RESP 16; TEMP 36.1; O2SAT 96
[2022-03-19 08:35] VITALS: BP 146/74; PULSE 66; RESP 16; TEMP 36.6; O2SAT 97
--- NOTE | 2022-03-19 08:45 | W.ANESPOSTOP ---
Postoperative Evaluation Date, Time and Location Date Performed: 03/19/22 Time Performed: 08:10 Patient Location: Day Surgery Unit Vital Signs Most Recent Imported Vital Signs: Most Recent Vital Signs Temp Pulse Resp BP Pulse Ox 36.1 C L 78 16 122/74 96 03/19/22 07:56 03/19/22 07:56 03/19/22 07:56 03/19/22 07:56 03/19/22 07:56 Pain Score Most Recent Pain Score: Most Recent Pain Score Pain Level 0 03/19/22 07:56 Assessment Mental Status: Awake (Alert & Oriented to Patient Baseline) Airway and Respiratory Function: Patent airway with normal (patient baseline) respiratory exam Cardiovascular Function: Hemodynamically Stable Hydration Status: Adequately Hydrated Nausea & Vomiting: No Nausea or Vomiting Pain: Pain is tolerable per patient Peripheral Nerve Block: Patient did not receive a nerve block
[2022-03-19] MEDS: Phenazopyridine 200 MG TAB PO (08:50)
[2022-03-19] MEDS: Tamsulosin 0.4 MG CAPCR PO (09:50)
[2022-03-19 11:45] VITALS: BP 142/90; PULSE 86; RESP 16; TEMP 36.6; O2SAT 96
[2022-03-19 12:42] VITALS: BP 140/98; PULSE 82; RESP 18; TEMP 36.5; O2SAT 98
== END 2022-03-19 14:12 | disposition home or self-care (01) ==
PROVIDERS: PCP Family Medicine; Visit Provider Urology
PROC: (CPT 51715; principal; 2022-03-19 07:30)
DX: N36.42 Intrinsic sphincter deficiency (ISD) (principal); N39.46 Mixed incontinence
CPT/HCPCS: 51715; J2405; L8606

== ENCOUNTER 2022-04-06 15:18 | Outpatient (REF) | payer MEDICARE, BC, SELFPAY | END 2022-04-06 15:19 | disposition home or self-care (01) | LOC: NCHCN 15:18 | PROVIDERS: PCP Family Medicine; Visit Provider Family Medicine | DX: N39.0 Urinary tract infection, site not specified (principal) | CPT/HCPCS: 87077; 87086; 87186 ==

== ENCOUNTER 2022-05-20 17:26 | Outpatient (REF) | payer MEDICARE, BC, SELFPAY ==
[2022-05-20 20:32] LABS: BUN 15 mg/dL (7-18); CREATININE 0.7 mg/dL (0.55-1.02); Calcium 9.8 mg/dL (8.5-10.1); Chloride 106 mmol/L (98-107); Glucose 108 mg/dL (74-106); Potassium 3.7 mmol/L (3.5-5.1); Sodium 140 mmol/L (136-145)
== END 2022-05-20 17:27 | disposition home or self-care (01) ==
LOC: NCHCN 17:26
PROVIDERS: PCP Family Medicine; Visit Provider Internal Medicine
DX: K21.9 Gastro-esophageal reflux disease without esophagitis (principal); R06.09 Other forms of dyspnea; R05.3 Chronic cough
CPT/HCPCS: 80048

== ENCOUNTER 2022-06-08 04:38 | Outpatient (CLI) | payer MEDICARE, BC, SELFPAY ==
[2022-06-08] MEDS: Albuterol HFA 18 GM 200 PUFF INH IH (17:11)
[2022-06-08] MEDS: Inhaler, Assist Device 1 EACH MC (17:12)
--- NOTE | 2022-06-09 16:18 | W.PFT ---
Date of service: 06/08/22 Time of Service: 14:48 Pulmonary Function Test Result Requesting Provider Carmelo Pan Indications: Chronic cough Interpretation Spirometry: There is no airflow limitation. There is no significant bronchodilator response. Lung Volumes: Normal lung volumes Diffusion Capacity: Normal diffusion Airway Pressure: Normal airways resistance. Impression Normal pulmonary function testing. Clinical Correlation therefore is recommended.
== END 2022-06-08 04:39 | disposition home or self-care (01) ==
LOC: RT 04:39
PROVIDERS: PCP Internal Medicine; Visit Provider Internal Medicine

== ENCOUNTER → 2022-06-15 02:19 | Outpatient (CLI) | payer MEDICARE, BC, SELFPAY ==
--- NOTE | 2022-06-15 12:57 | DI.CT_ITS ---
Exam(s) CT CHEST WO EXAM: CT CHEST WO CLINICAL HISTORY: CHRONIC COUGH, R05.3. TECHNIQUE: Multi planar reconstructions were performed. CONTRAST MATERIAL: None COMPARISON: CT CT RENAL COLIC WO from 07/27/2021 FINDINGS: CHEST: LUNGS: There is some mild infiltrate in the medial right lung base again noted, specifically in the m edial basal segment of right lower lobe and exhibiting minimal change from the uppermost images of an abdominal CT scan of 07/27/2021. This is adjacent to a prominent anterolateral osteophyte off a tho racic vertebra and is probably related to subsequent incomplete lung inflation at this level due to t his large osteophyte. There are no new additional areas of infiltrate nor pleural effusions. No jovan nous pulmonary nodules. No new findings in the trachea and mainstem bronchi. No bronchiectasis. MEDIASTINUM: There is no obvious hilar nor mediastinal adenopathy. Partially visualized left thyroid lobe appears abnormally enlarged and may contain significant nodules.There is no supraclavicular trudy opathy. No axillary adenopathy. CARDIAC: Heart size is normal. There is no pericardial effusion.Caliber of the thoracic aorta is wit hin normal limits. VISUALIZED UPPER ABDOMEN: OSSEOUS: No significant osseous lesions.. IMPRESSION: 1. Stable benign-appearing right lower lobe lung findings as described above. No new additional lung findings evident. No pleural effusions nor intrathoracic adenopathy. 2. Possible abnormal enlargement and nodules in left thyroid lobe. This could be further investigate d with ultrasound of the thyroid gland. RADIATION DOSE DELIVERED: 522.84mGy.cm Total DLP DATA REPOSITORY: All CT scans at this facility are submitted to the National Radiology Data Registry (NRDR) Dose Index Registry (DIR) with the [employer] (ACR). RADIATION OPTIMIZATION: All CT scans at this facility use at least one of these dose optimization te chniques: automated exposure control; mA and/or kV adjustment per patient size (includes targeted exa ms where dose is matched to clinical indication); or iterative reconstruction.
== END ==
PROVIDERS: PCP Internal Medicine; Visit Provider Internal Medicine
DX: R05.3 Chronic cough (principal); E07.89 Other specified disorders of thyroid; R91.8 Other nonspecific abnormal finding of lung field
CPT/HCPCS: 71250

== ENCOUNTER 2022-06-16 16:20 | Outpatient (REF) | payer MEDICARE, BC, SELFPAY ==
[2022-06-16 21:06] LABS: TSH (W/Ref FT4) 1.22 uIU/mL (0.36-3.74)
== END 2022-06-16 16:21 | disposition home or self-care (01) ==
LOC: NCHCN 16:20
PROVIDERS: PCP Internal Medicine; Visit Provider Internal Medicine
DX: E04.1 Nontoxic single thyroid nodule (principal); K21.9 Gastro-esophageal reflux disease without esophagitis; R05.3 Chronic cough
CPT/HCPCS: 84443

== ENCOUNTER 2022-07-15 01:45 | Outpatient (CLI) | payer MEDICARE, BC, SELFPAY ==
--- NOTE | 2022-07-15 | DI.MAMMO_ITS ---
Exam(s) MAMMO SCREENING EXAM: MAMMO SCREENING CLINICAL HISTORY: SCREENING MAMMO FOR BREAST CANCER Z12.31 TECHNIQUE: Mammograms were interpreted according to the usual protocol including computer analysis w [employer] CAD system, tomosynthesis and C-view imaging. COMPARISON: 2012 through 2020 FINDINGS: The breasts are composed of heterogeneously dense fibroglandular densities, Breast Density category C . No suspicious masses or suspicious microcalcifications are seen. No skin thickening or abnormal axillary lymph nodes are seen. There has been no significant change from prior exams. IMPRESSION: BI-RADS Category 1, Negative mammogram. Yearly screening mammography is recommended. Breast Density Category C, heterogeneously Dense. The mammogram demonstrates the patient's breast tissue is dense. Dense breast tissue is very common a nd is not abnormal but dense breast tissue can make it harder to find cancer on a mammogram. Also, de nse breast tissue may increase breast cancer risk. This information about the result of the mammogram report was provided to the patient to raise their awareness. Use this report when you speak with the patient about their risks for breast cancer, which includes their family history. At that time, you may recommend additional screening tests (Ultrasound or MRI) as they might be useful based on their r isk. A negative radiographic report should not delay biopsy if a dominant or clinically suspicious mass is present. Up to ten percent of cancers are not identified on mammography. A negative report may reinforce clinical impression. Adenosis and dense breasts may obscure an underlying neoplasm. False positive reports average 6 to 10%.
== END 2022-07-15 02:05 ==
LOC: DI 01:46
PROVIDERS: PCP Internal Medicine; Visit Provider Internal Medicine
DX: Z12.31 Encounter for screening mammogram for malignant neoplasm of breast (principal); R92.8 Other abnormal and inconclusive findings on diagnostic imaging of breast
CPT/HCPCS: 77063; 77067

== ENCOUNTER 2022-09-24 03:25 | Outpatient (CLI) | payer MEDICARE, BC, SELFPAY ==
--- NOTE | 2022-09-24 | DI.US_ITS ---
Exam(s) US THYROID EXAM: US THYROID CLINICAL HISTORY: F/U ENLARGED LT LOBE ON CT,? THYROID NODULE,E04.1. TECHNIQUE: Ultrasound thyroid performed using standard protocol. COMPARISON: CT CT CHEST WO from 06/15/2022 FINDINGS: ISTHMUS: 0.3 mm RIGHT LOBE: Size: 5.7 x 2.0 x 2.2 cm Echogenicity: Normal. Vascularity: Normal. Nodules: There is a 0.8 x 0.5 x 0.8 cm hypoechoic solid nodule in the inferior right lobe. There are punctate echogenic foci. It is consistent with a TI rads level 5 nodule. Due to its size, follow-u p ultrasound is recommended. LEFT LOBE: Size: 5.8 x 2.1 x 2.5 cm Echogenicity: Normal. Vascularity: Normal. Nodules: There is a 4 x 1.8 x 2.7 cm solid isoechoic nodule in the left lobe. This is consistent wit h a TI rads level 3 nodule. Due to its size, FNA is recommended. OTHER FINDINGS: None. IMPRESSION: FNA recommended on the 4 x 1.8 x 2.7 cm solid isoechoic nodule in the left lobe. DATA REPOSITORY:
== END 2022-09-24 03:45 ==
PROVIDERS: PCP Internal Medicine; Visit Provider Internal Medicine
DX: E04.1 Nontoxic single thyroid nodule (principal)
CPT/HCPCS: 76536

== ENCOUNTER 2022-09-24 03:27 | Outpatient (CLI) | payer MEDICARE, BC, SELFPAY ==
--- NOTE | 2022-09-24 07:18 | DI.RAD_ITS ---
Exam(s) XR ABDOMEN FLAT PLATE EXAM: 2D digital imaging was performed. CLINICAL HISTORY: monitoring b/l renal stones,H/O RENAL CALCULI, Z87.442. COMPARISON: CT CT RENAL COLIC WO from 07/27/2021 US US THYROID from 09/24/2022 TECHNIQUE: Supine views of the abdomen performed. Two views were obtained. FINDINGS: BOWEL GAS PATTERN: There is a moderate amount of stool throughout the colon overlies the kidney. CALCIFICATIONS: There is a 4 mm calcification which appears to lie in the region of the right renal p gemini. There are phleboliths in the pelvis. No other urinary tract calculi are identified. OSSEOUS STRUCTURES: Within normal limits for the patient's age. OTHER FINDINGS: Surgical clips are seen in the pelvis. IMPRESSION: 1. Calcification overlying the right renal shadow which may represent nephroliths. 2. The kidneys are largely obscured by overlying bowel. DATA REPOSITORY: RADIATION DOSE DELIVERED:
== END 2022-09-24 03:47 ==
LOC: DI 03:28
PROVIDERS: PCP Internal Medicine; Visit Provider Nurse Practitioner Gerontology
DX: N20.0 Calculus of kidney (principal); Z87.442 Personal history of urinary calculi; K59.09 Other constipation
CPT/HCPCS: 74018; 76536

== ENCOUNTER 2022-09-28 14:32 | Outpatient (REF) | payer MEDICARE, BC, SELFPAY | END 2022-09-28 14:33 | disposition home or self-care (01) | LOC: URO 14:32 | PROVIDERS: PCP Internal Medicine; Visit Provider Nurse Practitioner Gerontology | DX: R35.0 Frequency of micturition (principal); N39.46 Mixed incontinence | CPT/HCPCS: 87077; 87086; 87186 ==

== ENCOUNTER 2023-02-02 02:03 | Outpatient (CLI) | payer MEDICARE, BC, SELFPAY ==
--- NOTE | 2023-02-02 15:08 | DI.US_ITS ---
APPROVED REPORT EXAM: Comprehensive 2D, Doppler, and color-flow Echocardiogram Patient Location: Out-Patient Street Cleaning Equipment Operator: Huyen Ravi RDCS (AE) Indications: Exertional Dyspnea Other Information Study Quality: Adequate Conclusion Normal left ventricular wall thickness and chamber size. Ejection fraction is 55 to 60%. Wall motio n is normal Normal right ventricular size and systolic function Both atria are normal in size Trileaflet aortic valve without stenosis or regurgitation Mildly thickened mitral leaflets with mild regurgitation Estimated right ventricular systolic pressure is 23 mmHg Wall motion Left Ventricle The left ventricle is normal size. The left ventricular systolic function is normal. The left ventric ular ejection fraction is within the normal range. There is normal left ventricular wall thickness. T here is normal LV segmental wall motion. There is no ventricular septal defect visualized. LVEF is 57 %. Right Ventricle The right ventricle is normal size. The right ventricular systolic function is normal. The RVSP is 22 .7mmHg. Atria The left atrium size is normal. The right atrium size is normal. The interatrial septum is intact wit h no evidence for an atrial septal defect. Aortic Valve The aortic valve is normal in structure. Aortic valve is trileaflet. There is no aortic valvular sten osis. No aortic regurgitation is present. Mitral Valve Mildly thickened mitral leaflets No evidence of mitral valve stenosis. Mild mitral regurgitation. Tricuspid Valve The tricuspid valve is normal in structure. There is no tricuspid valve stenosis. Trace tricuspid reg urgitation. Pulmonic Valve Pulmonic valve is not well visualized. There is no pulmonic valvular stenosis. Trace pulmonic regurgi tation. Great Vessels The aortic root is normal in size. The ascending aorta is borderline dilated. Aortic arch is normal i n caliber. IVC is normal in size and collapses >50% with inspiration. Pericardium There is no pericardial effusion. 2D Dimensions IVSD d PLAX 0.90 cm F: 0.6-1.0 LV Vol A2C d MOD 96.1 mL LVPW d PLAX 0.98 cm F: 0.6 - 1.0 LV Vol A4C d MOD 99.9 mL LVID d PLAX 4.00 cm F: 3.8 - 5.2 LA vol/ BSA A2C s A-L 30.8 mL/m2 LVDs 2.75 cm F: 2.2 - 3.5 LA vol/ BSA A4C s A-L 22.5 mL/m2 Ao Root d 3.00 cm F: 2.7 - 3.3 LA Vol/ BSA Biplane s A-L 28.3 mL/m2 RA Area A4C 12.70 cm2 LA Area A4C s MOD 15.75 cm2 RA Vol/ BSA A4C s A-L 18.5 mL/m2 LA Area A2C s MOD 17.11 cm2 Ao Asc Diam d 3.32 cm F: 2.3 - 3.1 LV EF A4C MOD 55.6 % LV EF Teichholz 59.5 % LV EF A2C MOD 57.6 % LVEF (Raygoza's) 56.69 % F: 54 - 74 LV EF Biplane MOD 56.7 % LV Volume 77.14 mL F: 46 - 106 SV 55.98 mL LV Volume Index 43.33 mL/m2 F: 29 - 61 SV Index 31.47 mL/m2 LV Vol Biplane MOD 98.8 mL FS 31.15 % M-Mode TAPSE 1.70 cm (M/F) >1.7 LV Diastology MV E' medial 0.051 (>0.07 m/s) E/A Ratio 0.8 LV E/e MED 10.50 (<14) MV E Vmax 0.54 (0.4-1.3 m/s) MV E' lateral 0.084 (>0.1 m/s) MV A Vmax 0.70 (0.4-1.3 m/s) LV E/e LAT 6.40 (<14) MV E/A Ratio 0.77 MV E/E' medial 10.54 MV E/E' lateral 6.42 Aortic Valve LVOT Area 3.48 cm2 AoV Area Vmax 2.23 cm2 LVOT Vmax 0.77 m/s AoV Area/ BSA (Vmax) 1.26 cm2/m2 LVOT Mean Alejo. 0.49 m/s ROMAIN Mean Alejo. 2.21 cm2 LVOT Peak Grad 2.3 mmHg ROMAIN Mean Alejo. Index 1.24 cm2/m2 LVOT Mean Grad 1.1 mmHg LVOT VTI 0.155 m LVOT Diam s 2.10 cm AoV Vmax 1.19 m/s Velocity Ratio 0.65 AoV Mean Alejo. 0.77 m/s AoV Peak Grad 5.7 mmHg LVOT SV 53.92 mL AoV Mean Grad 2.8 mmHg AoV VTI 0.227 m AoV Area VTI 2.37 cm2 AoV Area/ BSA (VTI) 1.33 cm/m2 Mitral Valve MV DT 273 (160-240 msec) MV PHT 79 msec MV Area PHT 2.77 cm2 MV VTI 0.255 m MV Area VTI 2.11 (4.0-6.0 cm2) Pulmonary Valve PV Vmax 0.73 (0.5-1.5 m/s) RVOT Peak Gr. 1.09 mmHg PV Peak Grad 2.1 mmHg RVOT Mean Gr. 0.50 mmHg PV Mean Grad 1.1 mmHg RVOT VTI 0.105 m PV VTI 0.117 m RVOT Vmax 0.52 m/s Tricuspid Valve TR Peak Grad 19.7 mmHg TR Vmax 2.22 m/s RA Pressure 3.00 mmHg RVSP (TR) 22.7 mmHg
== END 2023-02-02 02:23 ==
LOC: DI 02:06
PROVIDERS: PCP Internal Medicine; Visit Provider Family Medicine
DX: R06.09 Other forms of dyspnea (principal)
CPT/HCPCS: 93306

== ENCOUNTER 2023-03-04 14:25 | Outpatient (REF) | payer MEDICARE, BC, SELFPAY ==
[2023-03-04 16:37] LABS: Bilirubin Negative (Negative); Blood Moderate (Negative); Clarity Clear (Clear); Glucose Negative (Negative); Ketones Negative (Negative); Leukocyte Esterase Trace (Negative); Nitrite Positive (Negative); Urobilinogen 0.2 mg/dL (Up to 0.2); pH 5.5 (5-8)
[2023-03-04 17:23] LABS: Bacteria Moderate HPF (Negative); C & S Indicated? C&S Done As Ordered; Crystals Negative HPF (Negative); Epithelial Cells Rare HPF (Negative); Mucus Negative (Negative); WBC 20-50 HPF (0-5)
== END 2023-03-04 14:26 | disposition home or self-care (01) ==
LOC: NCHCN 14:25
PROVIDERS: PCP Internal Medicine; Visit Provider Nurse Practitioner Family
DX: N39.0 Urinary tract infection, site not specified (principal)
CPT/HCPCS: 87077; 81003; 81015; 87086; 87186

== ENCOUNTER 2023-03-15 16:07 | Outpatient (REF) | payer MEDICARE, BC, SELFPAY | END 2023-03-15 16:08 | disposition home or self-care (01) | LOC: NCHCN 16:07 | PROVIDERS: PCP Internal Medicine; Visit Provider Family Medicine | DX: N39.0 Urinary tract infection, site not specified (principal) | CPT/HCPCS: 87086 ==

== ENCOUNTER 2023-06-08 02:35 | Outpatient (CLI) | payer MEDICARE, BC, SELFPAY ==
[2023-06-08 08:37] LABS: Calculated LDL 170 mg/dL (<100); Cholesterol 255 mg/dL (<200); HDL Cholesterol 60 mg/dL (40-60); Triglyceride 127 mg/dL (<150)
== END 2023-06-08 02:36 | disposition home or self-care (01) ==
LOC: LBO 02:35
PROVIDERS: PCP Internal Medicine; Visit Provider Family Medicine
DX: Z00.00 Encounter for general adult medical examination without abnormal findings (principal)
CPT/HCPCS: 36415; 80061

== ENCOUNTER 2023-07-21 18:23 | Outpatient (REF) | payer MEDICARE, BC, SELFPAY ==
[2023-07-21 14:33] LABS: TSH (W/Ref FT4) 1.76 uIU/mL (0.36-3.74)
== END 2023-07-21 18:24 | disposition home or self-care (01) ==
LOC: NCHCN 18:23
PROVIDERS: PCP Internal Medicine; Visit Provider Family Medicine
DX: E03.9 Hypothyroidism, unspecified (principal)
CPT/HCPCS: 84443

== ENCOUNTER → 2023-09-16 09:35 | Outpatient (BNVA) | payer MEDICARE, BC, SELFPAY | PROVIDERS: PCP Family Medicine; Referring Provider Family Medicine; Visit Provider Podiatrist | DX: L60.0 Ingrowing nail (principal); M79.672 Pain in left foot | CPT/HCPCS: 99214 ==

== ENCOUNTER → 2023-09-20 03:32 | Outpatient (CLI) | payer MEDICARE, BC, SELFPAY ==
--- NOTE | 2023-09-20 11:49 | DI.RAD_ITS ---
Exam(s) XR ABDOMEN FLAT PLATE EXAM: 2D digital imaging was performed. CLINICAL HISTORY: monitoring renal calculi,z87.442. COMPARISON: No exams were available for comparison TECHNIQUE: Supine views of the abdomen performed. FINDINGS: BOWEL GAS PATTERN: Nondistended. CALCIFICATIONS: No radiopaque calcifications. Kidneys are somewhat obscured by bowel gas and costal cartilage calcifications. OSSEOUS STRUCTURES: Normal for age. OTHER FINDINGS: Surgical clips in pelvis. Lung bases are clear. IMPRESSION: 1. Nonobstructive bowel gas pattern. 2. No radiopaque calculi. DATA REPOSITORY: RADIATION DOSE DELIVERED:
== END ==
PROVIDERS: PCP Family Medicine; Visit Provider Nurse Practitioner Gerontology
DX: Z87.442 Personal history of urinary calculi (principal)
CPT/HCPCS: 74018

== ENCOUNTER → 2023-09-27 14:11 | Outpatient (BNVA) | payer MEDICARE, BC, SELFPAY | PROVIDERS: PCP Family Medicine; Visit Provider Nurse Practitioner Gerontology | DX: N20.0 Calculus of kidney (principal); R32 Unspecified urinary incontinence | CPT/HCPCS: 51798; 99214 ==

== ENCOUNTER → 2023-10-28 14:58 | Outpatient (BNVA) | payer MEDICARE, BC, SELFPAY | PROVIDERS: PCP Family Medicine; Visit Provider Nurse Practitioner Gerontology | DX: N20.0 Calculus of kidney (principal); R32 Unspecified urinary incontinence | CPT/HCPCS: 99214 ==

== ENCOUNTER → 2023-12-02 10:31 | Outpatient (BNVA) | payer MEDICARE, BC, SELFPAY | PROVIDERS: PCP Family Medicine; Referring Provider Family Medicine; Visit Provider Physical Therapy Assistant | DX: K64.8 Other hemorrhoids (principal); Z80.0 Family history of malignant neoplasm of digestive organs; Z12.11 Encounter for screening for malignant neoplasm of colon | CPT/HCPCS: 99213 ==

== ENCOUNTER → 2024-02-02 10:20 | Outpatient (BNVA) | payer MEDICARE, BC, SELFPAY | PROVIDERS: PCP Family Medicine; Referring Provider Family Medicine; Visit Provider Nurse Practitioner Gerontology | DX: N39.46 Mixed incontinence (principal); N20.0 Calculus of kidney | CPT/HCPCS: 51798; 99213 ==

== ENCOUNTER 2024-02-17 02:22 | Outpatient (CLI) | payer MEDICARE, BC, SELFPAY ==
--- NOTE | 2024-02-17 | DI.DEXA_ITS ---
Exam(s) XR DEXA BONE DENSITY W/WO JANNA EXAM: XR DEXA BONE DENSITY W/WO JANNA CLINICAL HISTORY: M81.0 Age-related osteoporosis w/o current pathological FX TECHNIQUE: Routine DEXA evaluation of the lumbar spine, hip, or forearm. COMPARISON: Prior DEXA scan October 2013 FINDINGS: Performed on a [employer] unit. Lateral image: No compression fracture evident. Lumbar Spine total T-score: -2.2. Prior 2013 reading was -1.9. Hip total T-score:-1.4. Prior 2013 reading was -1.3. Independent reading at the level of the femoral neck yields T-score of -1.4 Forearm total T-score: -3.3 IMPRESSION: Bone mineral density measures in the osteopenia range for the hip and spine. Bone density measures i n the osteoporosis range for the forearm-wrist.. Fracture risk is moderate-high. Note: Any spine fracture indicates 5x risk for subsequent spine fracture and 2x risk for subsequent h ip fracture. World Health Organization criteria for BMD interpretation classify patients: Normal...... T- Score at or above -1.0 Osteopenic... T- Score between -1.0 and -2.5 Osteoporosis... T-Score at or below -2.5
--- NOTE | 2024-02-17 14:30 | DI.MAMMO_ITS ---
Exam(s) MAMMO SCREENING EXAM: MAMMO SCREENING CLINICAL HISTORY: Z12.31 Screening TECHNIQUE: Bilateral full field digital CC and MLO mammographic images were obtained with 3D tomosyn thesis and utilizing computer aided detection (CAD). COMPARISON: Available for comparison. FINDINGS: Masses/Architectural Distortion: None seen. Microcalcifications: No suspicious pleomorphic-type are seen. Skin Thickening/Nipple Retraction: None. IMPRESSION: 1. No significant interval change with no specific features of malignancy noted. 2. Unless there is more urgent need, screening mammography is recommended, as per [employer] guidelines. BI-RADS Category 1 - Negative Breast Density - Category B - Scattered areas of fibroglandular density Breast density category C or D implies that the patient has dense breast tissue. Dense breast tissue is very common and is not abnormal but dense breast tissue can make it harder to find cancer on a ma mmogram. Also, dense breast tissue may increase their breast cancer risk. This information about the result of the mammogram report was provided to the patient to raise their awareness. Use this report when you speak with the patient about their risks for breast cancer, which includes their family hist ory. At that time, you may recommend for more screening tests (Ultrasound or MRI) as they might be us eful based on their risk. A negative radiographic report should not delay biopsy if a dominant or clinically suspicious mass is present. Up to ten percent of cancers are not identified on mammography. A negative report may reinforce clinical impression. Adenosis and dense breasts may obscure an underlying neoplasm. False positive reports average 6 to 10%. Patient will receive a letter notifying them of these results.
== END 2024-02-17 02:42 ==
LOC: DI 02:22
PROVIDERS: PCP Family Medicine; Visit Provider Family Medicine
DX: M81.0 Age-related osteoporosis without current pathological fracture (principal); Z12.31 Encounter for screening mammogram for malignant neoplasm of breast; Z13.820 Encounter for screening for osteoporosis
CPT/HCPCS: 77063; 77067; 77080

== ENCOUNTER 2024-04-04 08:06 | Emergency (ER) | payer MEDICARE, BC, SELFPAY ==
[2024-04-04] VITALS (18 sets, daily range): BP systolic 153–180; BP diastolic 71–102; PULSE 55–87; RESP 12–22; TEMP 36.4–36.5; O2SAT 94–98
--- NOTE | 2024-04-04 08:15 | DI.CT_ITS ---
Exam(s) CT RENAL COLIC WO EXAM: CT RENAL COLIC WO CLINICAL HISTORY: R flank pain, hx large renal stones. TECHNIQUE: Imaging Protocol: Axial computed tomography images with coronal and sagittal reformatted images were created and reviewed. CONTRAST MATERIAL: Noncontrast COMPARISON: CT CT RENAL COLIC WO from 07/27/2021 CR XR ABDOMEN FLAT PLATE from 09/20/2023 FINDINGS: ABDOMEN: Lung Bases: Small hiatal hernia. The heart is dilated. Liver: Normal attenuation. Bill's lobe. No measurable mass. Gallbladder and biliary tract: No radiodense calculus or dilation. Pancreas: Normal density, no calcifications or inflammatory process. Spleen: Normal. Kidneys: Normal size, contour and axis. 4 millimeter stone at the right ureterovesical junction causi ng moderate right hydronephrosis. Mild perinephric stranding. No renal calculi. No masses seen. Adrenal glands: No masses seen. Abdominal Aorta: Abdominal portion non-dilated. Soft tissues: A fat containing umbilical hernia. No change in small fat containing hernia in the mid line pelvic region. PELVIS: Bladder: Symmetric distention, no gross wall thickening. There are several calcifications seen inferi or to the floor of the bladder, measuring up to 13 millimeters in size. These could be within a uret hral diverticulum but no surrounding fluid is seen. There is an elongated stone which is in the uret hra measuring 17 millimeters in length by 3 millimeters in diameter.No visible mass. Bowel: No obstruction or bowel wall thickening. Appendix normal. Normal quantity of stool. Reproductive: Unremarkable. Tubal ligation clips. Left Peritoneal cavity: No ascites, collection or mesenteric inflammatory response. Bones: Unremarkable for age.. IMPRESSION: Moderate right hydronephrosis secondary to a 4 millimeter stone at the ureterovesical junction. Elongated 17 millimeter stone noted within the urethra. Additional coarse calcifications are seen below the floor of the bladder which may be located within a urethral diverticulum or represent calcifications in the adjacent soft tissues. RADIATION DOSE DELIVERED: 490.47mGy.cm Total DLP DATA REPOSITORY: All CT scans at this facility are submitted to the National Radiology Data Registry (NRDR) Dose Index Registry (DIR) with the [employer] (ACR). RADIATION OPTIMIZATION: All CT scans at this facility use at least one of these dose optimization te chniques: automated exposure control; mA and/or kV adjustment per patient size (includes targeted exa ms where dose is matched to clinical indication); or iterative reconstruction.
--- NOTE | 2024-04-04 08:30 | ED.GENADUL_ITS ---
Discharge Plan Disposition Patient Disposition: Home Condition: Stable Discharge Details Clinical Impression: Right ureteral stone Primary Care Provider: Guadalupe Delatorre ED Provider: Xavier Willis Home Meds and New Rx's Prescriptions: New tamsulosin 0.4 mg capsule 0.4 mg PO DAILY Qty: 30 0RF Continued Adult 50 Plus Probiotic 4 billion cell capsule 4,000 mmu cells PO DAILY Rx Instructions: administer with a meal omeprazole 20 mg capsule,delayed release(DR/EC) 40 mg PO DAILY atorvastatin 20 mg tablet 20 mg PO DAILY cholecalciferol (vitamin D3) 25 mcg (1,000 unit) capsule 25 mcg PO DAILY Rx Instructions: dose unverified cyanocobalamin (vitamin B-12) 1,000 mcg capsule 1,000 mcg PO DAILY Rx Instructions: dose unverified turmeric 400 mg capsule 450 mg PO DAILY ascorbate calcium (vitamin C) 500 mg tablet 500 mg PO DAILY acyclovir 200 MG capsule 400 mg PO PRN PRN hydrocortisone 2.5 % cream with perineal applicator 1 applic DC QD-BID PRN mometasone 0.1 % cream 1 applic TP DAILY PRN clobetasol 0.05 % cream 1 applic TP DAILY PRN ketorolac 10 mg tablet 10 mg PO Q6H PRN Patient Comments: 0600 meclizine 25 mg tablet 25 mg PO BID PRN melatonin 5 mg capsule 5 mg PO HS PRN oxybutynin chloride 10 mg tablet extended release 24hr 10 mg PO DAILY Qty: 90 2RF Rx Instructions: Note change in dosage acetaminophen 500 mg Capsule 500 mg PO Q6H PRN Discharge Instructions Instructions: Tamsulosin, Kidney Stone, Adult ED Additional Instructions: You were seen in the emergency department for your right-sided flank pain, you have a 4 mm right ureteral stone, I discussed this with Dr. Saunders of urology, we will plan to treat this with Flomax which dilates your urinary tract to allow better passage of stone, you may take your ketorolac you have at home every 6 hours as needed for the next 4 days as needed. Please take 650 mg of Tylenol every 4 hours, stay aggressively hydrated. The 17 mm anomaly seen in your urethra is your prior injection of Coaptite for incontinence and not a stone stuck in your urethra. The 4 mm right ureter stone should pass but you may follow-up with urology over the phone for any failure to improve, please return to the ER at once for any complete urinary obstruction, developing fever nausea and weakness. Referrals: [facility] [Provider Group] Guadalupe Delatorre [Primary Care Provider] - [facility] General Date/Time Provider Initiated Documentation: 04/04/24 08:14 . HPI Narrative: 74 year-old female presents to ED today by POV/ambulating with a chief complaint of R flank pain, feels similar to prior kidney stone episodes with onset around 1600 yesterday. Quality described as R sided abdominal pain, no radiation to nausea/vomiting, endorses some urinary changes, dark urine, denies chest pain/shortness of breath, denies fever. Severity is described as moderate. Palliating factors include tried hydrating aggressively with some relief until 0400 this morning. Provoking factors include nothing specific. Events leading up to the incident/Associated Symptoms: Patient endorses prior kidney stone episode 2 years ago, endorses her stones were large ~11mm, had to have surgery. Patient not anticoagulated. Related Data Home Medications ?Medication ?Instructions ?Recorded ?Confirmed acyclovir 200 mg capsule 400 mg PO PRN PRN 10/11/13 04/04/24 hydrocortisone 2.5 % topical cream 1 applic DC QD-BID PRN 02/27/20 04/04/24 with perineal applicator acetaminophen 500 mg capsule 500 mg PO Q6H PRN 03/19/22 04/04/24 clobetasol 0.05 % topical cream 1 applic topical DAILY PRN 03/30/22 04/04/24 mometasone 0.1 % topical cream 1 applic topical DAILY PRN 03/30/22 04/04/24 atorvastatin 20 mg tablet 20 mg PO DAILY 09/08/23 04/04/24 cholecalciferol (vitamin D3) 25 25 mcg PO DAILY 09/08/23 04/04/24 mcg (1,000 unit) capsule cyanocobalamin (vitamin B-12) 1,000 mcg PO DAILY 09/08/23 04/04/24 1,000 mcg capsule omeprazole 20 mg capsule,delayed 40 mg PO DAILY 09/08/23 04/04/24 release ketorolac 10 mg tablet 10 mg PO Q6H PRN 09/17/23 04/04/24 meclizine 25 mg tablet 25 mg PO BID PRN 09/17/23 04/04/24 lactobacillus combination no.9 4 4,000 mmu cells PO DAILY 09/27/23 04/04/24 billion cell capsule (Adult 50 Plus Probiotic) ascorbate calcium (vitamin C) 500 500 mg PO DAILY 10/28/23 04/04/24 mg tablet melatonin 5 mg capsule 5 mg PO HS PRN 12/02/23 04/04/24 turmeric 400 mg capsule 450 mg PO DAILY 12/02/23 04/04/24 oxybutynin chloride 10 mg 10 mg PO DAILY #90 tabs 02/14/24 04/04/24 tablet,extended release 24 hr tamsulosin 0.4 mg capsule 0.4 mg PO DAILY #30 caps 04/04/24 Previous Rx's ?Medication ?Instructions ?Recorded oxybutynin chloride 10 mg 10 mg PO DAILY #90 tabs 02/14/24 tablet,extended release 24 hr tamsulosin 0.4 mg capsule 0.4 mg PO DAILY #30 caps 04/04/24 Allergies Allergy/AdvReac Type Severity Reaction Status Date / Time cephalexin Allergy Intermediate rash Verified 04/04/24 08:11 tramadol Allergy Intermediate rash Verified 04/04/24 08:11 erythromycin base Allergy Unknown Skin Rash Verified 04/04/24 08:11 oxycodone AdvReac Severe severe Verified 04/04/24 08:11 vomiting mirabegron (From Myrbetriq) AdvReac elevated bp Verified 04/04/24 08:11 General Stated Complaint: FlankPain KESHAWN: 3 Review of Systems All systems reviewed & are unremarkable except as noted in HPI and below Exam Narrative Exam Narrative: GENERAL APPEARANCE: Well-nourished, non-toxic, awake and alert, atraumatic, no acute distress. SKIN: Warm, pink, dry, intact, without rashes/lesions/ulcerations. HEAD: Normocephalic, atraumatic, normal hair distribution for gender/age. EYES: Normal conjunctiva, no exudates on lids/lashes. ENT: Nares patent, no circumoral cyanosis, no facial swelling NECK: Supple, trachea midline, painless cervical ROM. LUNGS/CHEST: Lungs CTA bilaterally-no rhonchi/rales/wheezes diffusely, non- labored respirations, normal A/P diameter, symmetrical expansion, no chest wall deformity HEART (CV/PV): Regular rate and rhythm without murmur, no peripheral edema, no JVD. ABDOMEN: Soft, non-distended, no guarding, mild right-sided abdominal t enderness, right CVA tenderness to percussion. MSK: Normal ROM, no swelling/deformity to bilateral UEs or LEs, moving all extremities without weakness, no cyanosis, spine midline without tenderness, n ormal curvature. NEURO: Mental Status AAOx4 - alert to person, place, time, events No facial droop, no forehead involvement. Motor: No focal weakness - strength 5/5 in bilateral UEs and LEs, proximal and distal, symmetric. Sensory: sensation intact to light touch globally. Gait normal: patient ambulated without ataxia into ED room. PSYCH: euthymic, cooperative, pleasant, appropriate speech Course Vital Signs Vital signs: Vital Signs Temperature 36.5 C 04/04/24 08:23 Pulse 77 04/04/24 08:23 Respiratory Rate 15 04/04/24 08:23 Blood Pressure 180/74 H 04/04/24 08:23 Pulse Oximetry 98 04/04/24 08:23 Temperature 36.4 C L 04/04/24 08:29 Temperature Source Oral 04/04/24 08:29 Pulse 87 04/04/24 08:29 Respiratory Rate 16 04/04/24 08:29 Respiratory Effort Normal, Non-Labored 04/04/24 08:28 Blood Pressure 180/74 H 04/04/24 08:23 Blood Pressure Position Sitting 04/04/24 08:23 Pulse Oximetry 98 04/04/24 08:29 Oxygen Delivery Method Room Air 04/04/24 08:29 Oxygen Flow Rate 0 04/04/24 08:23 Pain Level 7 04/04/24 08:29 Comment Ketorolac [employer] 04/04/24 08:29 Medical Decision Making This dictation utilizes [id number] dictation software and may contain unedited grammatical errors. 74 year-old female presents to ED today by POV/ambulating with a chief complaint of R flank pain, feels similar to prior kidney stone episodes with onset around 1600 yesterday. Quality described as R sided abdominal pain, no radiation to nausea/vomiting, endorses some urinary changes, dark urine, denies chest pain/shortness of breath, denies fever. Severity is described as moderate. Palliating factors include tried hydrating aggressively with some relief until 0400 this morning, took a ketorlac at 0600. Provoking factors include nothing specific. Events leading up to the incident/Associated Symptoms: Patient endorses prior kidney stone episode 2 years ago, endorses her stones were large ~11mm, had to have surgery. Patients' medical history: History of large ureteral stones, dysphagia, chronic cough, history of bladder suspension procedure, status post tubal ligation. Family and social history: noncontributory. Pertinent exam findings / vital signs include right CVA tenderness percussion, right upper and lower abdominal tenderness without overt peritoneal signs, negative Erickson sign, benign cardiopulmonary status, neuro intact. Differential / pathologies of concern include ureteral stone, UTI, pyelonephritis, unlikely SBO or bowel pathology, consider gastritis/duodenitis or biliary tree pathology. Diagnostic studies of: -CBC, CMP, Lipase, UA, CT Renal Study wo Contrast. -CBC shows no leukocytosis, no anemia -CMP shows mildly low sodium at 135, mildly low potassium at 3.2, normal renal function, no anion gap -Lipase negative -UA shows moderate blood, no evidence of UTI -CT renal study shows 17mm stone in the urethra, and a 4mm stone in the R ureter at the UVJ -discussed with Urology, the 17mm anomaly in urethra is a coaptite injection for incontinence Interventions of: -IVF 1L NS, 1g IV APAP, 0.4mg PO tamsulosin. -Consult Urology, plan to treat outpatient for 4mm R ureteral stone, followed by [facility] U[facility] ED Course/Assessment/Plan: 74-year-old female with a history of renal stones as well as complicated bladder incontinence presents with right-sided flank pain, she has a 4 mm ureteral stone causing moderate hydronephrosis, her urine is not infected, the anomaly seen in urethra is a Coaptite injection that Dr. Saunders is aware of. I discussed outpatient treatment with him and he agrees with plan for Flomax daily, aggressive hydration, directed to increase her ketorolac to every 6 hours as needed and take regular doses of Tylenol. Findings not consistent with urinary obstruction, infected renal stone. Disposition of Right Ureteral Stone. Patient verbalized understanding of the plan and return to ED criteria and engaged in shared decision making. Medical Records Medical records reviewed: Yes I reviewed the patient's medical records. Imaging Data Radiologic Study: Attestation: I personally reviewed and interpreted this imaging study as follows: Imaging: CT Scan Radiologist's impression: EXAM: CT RENAL COLIC WO CLINICAL HISTORY: R flank pain, hx large renal stones. TECHNIQUE: Imaging Protocol: Axial computed tomography images with coronal and sagittal reformatted images were created and reviewed. CONTRAST MATERIAL: Noncontrast COMPARISON: CT CT RENAL COLIC WO from 07/27/2021 CR XR ABDOMEN FLAT PLATE from 09/20/2023 FINDINGS: ABDOMEN: Lung Bases: Small hiatal hernia. The heart is dilated. Liver: Normal attenuation. Bill's lobe. No measurable mass. Gallbladder and biliary tract: No radiodense calculus or dilation. Pancreas: Normal density, no calcifications or inflammatory process. Spleen: Normal. Kidneys: Normal size, contour and axis. 4 millimeter stone at the right ureterovesical junction causing moderate right hydronephrosis. Mild perinephric stranding. No renal calculi. No masses seen. Adrenal glands: No masses seen. Abdominal Aorta: Abdominal portion non-dilated. Soft tissues: A fat containing umbilical hernia. No change in small fat containing hernia in the midline pelvic region. PELVIS: Bladder: Symmetric distention, no gross wall thickening. There are several calcifications seen inferior to the floor of the bladder, measuring up to 13 millimeters in size. These could be within a urethral diverticulum but no surrounding fluid is seen. There is an elongated stone which is in the urethra measuring 17 millimeters in length by 3 millimeters in diameter.No visible mass. Bowel: No obstruction or bowel wall thickening. Appendix normal. Normal quantity of stool. Reproductive: Unremarkable. Tubal ligation clips. Left Peritoneal cavity: No ascites, collection or mesenteric inflammatory response. Bones: Unremarkable for age.. IMPRESSION: Moderate right hydronephrosis secondary to a 4 millimeter stone at the ureterovesical junction. Elongated 17 millimeter stone noted within the urethra. Additional coarse calcifications are seen below the floor of the bladder which may be located within a urethral diverticulum or represent calcifications in the adjacent soft tissues. Lab Data Lab results reviewed: Yes I reviewed the patient's lab results. Labs: Laboratory Tests Range/Units 04/04/24 04/04/24 08:15 08:40 WBC (4.4-10.8) 10^3/uL 10.44 RBC (3.93-5.22) 10^6/uL 4.65 Hgb (11.2-15.7) g/dL 14.4 Hct (36.0-46.0) % 42.1 MCV (80-95) fL 91 MCH (27.0-33.0) pg 31.0 MCHC (32.0-36.0) % 34.2 RDW (11.7-14.6) % 12.5 Plt Count (130-400) 10^3/uL 194 MPV (8.0-11.0) fL 10.9 Immature Gran % % 0.3 Neutrophils % % 80.3 Lymphocytes % % 13.4 Monocytes % % 5.1 Eosinophils % % 0.5 Basophils % % 0.4 Nucleated RBC % (0.0-0.3) % 0.0 Absolute Neutrophils (1.2-6.7) 10^3/uL 8.39 H Absolute Lymphocytes (1.2-3.4) 10^3/uL 1.40 Absolute Monocytes (0.1-0.8) 10^3/uL 0.53 Absolute Eosinophils (0.0-0.7) 10^3/uL 0.05 Absolute Basophils (0.0-0.2) 10^3/uL 0.04 Sodium (136-145) mmol/L 135 L Potassium (3.5-5.1) mmol/L 3.2 L Chloride (98-107) mmol/L 101 Carbon Dioxide (21.0-32.0) mmol/L 26.3 Anion Gap (3-11) mmol/L 7.7 BUN (7-18) mg/dL 14 Creatinine (0.55-1.02) mg/dL 0.8 Est GFR (CKD-EPI 2020) (mL/min/1.73m2) 76.31 Glucose (74-106) mg/dL 126 H Total Bilirubin (0.2-1.0) mg/dL 0.70 AST (15-37) U/L 17 ALT (14-59) U/L 13 L Alkaline Phosphatase (46-116) U/L 95 Total Protein (6.4-8.2) g/dL 6.8 Albumin (3.4-5.0) g/dL 3.5 Lipase (16-77) U/L 34 Urine Color (Yellow) Yellow Urine Clarity (Clear) Sl Cloudy Urine pH (5-8) 6.0 Ur Specific [place] (1.005-1.025) 1.025 Urine Protein (Neg-Trace) mg/dL Negative Urine Ketones (Negative) mg/dL Negative Urine Blood (Negative) Moderate H Urine Nitrite (Negative) Negative Urine Bilirubin (Negative) Negative Urine Urobilinogen (Up to 0.2) mg/dL 0.2 Ur Leukocyte Esterase (Negative) Negative Urine RBC (0-2) HPF 5-10 H Urine WBC (0-5) HPF 0-2 Ur Epithelial Cells (Negative) HPF Rare Urine Crystals (Negative) HPF Negative Urine Bacteria (Negative) HPF Few Urine Mucus (Negative) Negative Ur Culture Indicated? No Urine Glucose (Negative) mg/dL Negative Quality:SDOH Health Related Social Needs: No Data to Display PFSH All Active Problems (Updated 04/04/24 @ 09:37 by TIA Monae) Right ureteral stone (Acute) Onychomycosis due to dermatophyte (Acute) Pain in left foot (Acute) Osteoporosis (Chronic) Hyperlipidemia (Acute) GERD (gastroesophageal reflux disease) (Chronic) Hypothyroid (Chronic) Ingrowing nail (Acute) Seborrheic keratoses (Acute) Onychomycosis (Acute) Cataract (Chronic) Herpes labialis (Acute) Urinary incontinence (Acute) Pt states r/o incontenece she leaks. Mixed stress and urge urinary incontinence (Acute) Hearing loss, bilateral (Acute) Medical History Kidney stones Left ureteral stone Sebaceous cyst Scalp lesion Dysphagia Chronic cough Tubular adenoma of colon Cystocele Pt. states she has a titanium staple They tacked up by bladder H/O cold sores Biceps tendinitis on left (11/22/14) Left arm pain (11/22/14) Surgical History S/P cystoscopy with ureteral stent placement ureteroscopy with ureteral stone removal History of bladder suspension procedure History of esophagogastroduodenoscopy (EGD) S/P colonoscopy 2008- - normal S/P tubal ligation S/P tonsillectomy Social History Smoking/Tobacco Use Status: Never Smoking risk assessment performed?: Yes Alcohol Intake: current Alcohol Intake frequency: a few times a month Alcohol type: wine Drug use: Never Substance use type: does not use Details: alcohol: t-14 Household members: spouse Housing: house What is your relationship status?: Panel score (0-1 are the most socially isolated patients): 1 Do you feel safe at home: Yes Do you feel safe in your relationship?: Yes
[2024-04-04] MEDS: Normal Saline 1,000 ML 1000 ML IV (08:47)
[2024-04-04] MEDS: ACETAMINOPHEN 1,000 MG/100 ML BTL 400 MG IVPB (08:47)
[2024-04-04] MEDS: Tamsulosin 0.4 MG CAPCR PO (08:47)
[2024-04-04 08:51] LABS: Abs Immature Grans 0.03 10^3/uL (0.0-0.06); Absolute Basophil Count 0.04 10^3/uL (0.0-0.2); Absolute Eosinophil Count 0.05 10^3/uL (0.0-0.7); Absolute Monocyte Count 0.53 10^3/uL (0.1-0.8); Absolute Neutrophil Count 8.39 10^3/uL (1.2-6.7); Basophils % 0.4 %; Eosinophils % 0.5 %; HCT 42.1 % (36.0-46.0); HGB 14.4 g/dL (11.2-15.7); Immature Grans % 0.3 %; Lymphocytes % 13.4 %; MCHC 34.2 % (32.0-36.0); MCV 91 fL (80-95); MPV 10.9 fL (8.0-11.0); Monocytes % 5.1 %; Neutrophils % 80.3 %; Platelet Count 194 10^3/uL (130-400); RBC 4.65 10^6/uL (3.93-5.22); RDW 12.5 % (11.7-14.6); RDW-SD 41.5 fL; WBC 10.44 10^3/uL (4.4-10.8)
[2024-04-04 09:06] LABS: Bilirubin Negative (Negative); Blood Moderate (Negative); Clarity Sl Cloudy (Clear); Glucose Negative (Negative); Ketones Negative (Negative); Leukocyte Esterase Negative (Negative); Nitrite Negative (Negative); Specific Gravity 1.025 (1.005-1.025); Urobilinogen 0.2 mg/dL (Up to 0.2)
[2024-04-04 09:12] LABS: ALT 13 U/L (14-59); AST 17 U/L (15-37); Albumin 3.5 g/dL (3.4-5.0); Alkaline Phosphatase 95 U/L (46-116); Anion Gap 7.7 mmol/L (3-11); BUN 14 mg/dL (7-18); CO2 26.3 mmol/L (21.0-32.0); CREATININE 0.8 mg/dL (0.55-1.02); Chloride 101 mmol/L (98-107); Estimated GFR 76.31 (mL/min/1.73m2); Glucose 126 mg/dL (74-106); Lipase 34 U/L (16-77); Potassium 3.2 mmol/L (3.5-5.1); Sodium 135 mmol/L (136-145); Total Protein 6.8 g/dL (6.4-8.2)
[2024-04-04 09:18] LABS: Bacteria Few HPF (Negative); C & S Indicated? No; Crystals Negative HPF (Negative); Epithelial Cells Rare HPF (Negative); Mucus Negative (Negative); WBC 0-2 HPF (0-5)
[2024-04-04 09:23] LABS: Calcium 9.3 mg/dL (8.5-10.1)
[2024-04-04] MEDS: MORPHine 4 MG/ML SYR IVP (09:31)
[2024-04-04] MEDS: Ondansetron 4 MG/2 ML VIAL IVP (09:32)
== END 2024-04-04 11:00 | disposition home or self-care (01) ==
PROVIDERS: Emergency Provider Physician Assistant; PCP Family Medicine
DX: N13.2 Hydronephrosis with renal and ureteral calculous obstruction (principal); I10 Essential (primary) hypertension; R11.0 Nausea
CPT/HCPCS: 36415; 80053; 83690; 96365; 96366; 96375; 99284; 74176; 81003; 81015; 85025; 99283; J0131; J2270; J2405

== ENCOUNTER → 2024-06-29 13:52 | Outpatient (BNVA) | payer MEDICARE, BC, SELFPAY | PROVIDERS: PCP Family Medicine; Referring Provider Family Medicine; Visit Provider Nurse Practitioner Gerontology | DX: R32 Unspecified urinary incontinence (principal); N20.0 Calculus of kidney | CPT/HCPCS: 51798; 99214 ==

== ENCOUNTER → 2024-07-20 14:25 | Outpatient (BNVA) | payer MEDICARE, BC, SELFPAY | PROVIDERS: PCP Family Medicine; Referring Provider Family Medicine; Visit Provider Physical Therapy Assistant | DX: Z12.11 Encounter for screening for malignant neoplasm of colon (principal); Z86.0100 Personal history of colon polyps, unspecified ==

== ENCOUNTER 2024-08-07 11:50 | Day surgery (SDC) | payer MEDICARE, BC, SELFPAY ==
--- NOTE | 2024-08-06 16:34 | W.PM.DSUDISC ---
Date of service: 08/07/24 Discharge Plan Disposition Patient Disposition: Home Condition: Good Discharge Details Reason For Visit: screening colonoscopy Attending Provider: Raffy Brown Primary Care Provider: Guadalupe Delatorre Home Meds and New Rx's Prescriptions: Continued omeprazole 20 mg capsule,delayed release(DR/EC) 40 mg PO DAILY atorvastatin 20 mg tablet 20 mg PO DAILY cholecalciferol (vitamin D3) 25 mcg (1,000 unit) capsule 25 mcg PO DAILY Rx Instructions: dose unverified cyanocobalamin (vitamin B-12) 1,000 mcg capsule 1,000 mcg PO DAILY Rx Instructions: dose unverified oxybutynin chloride 10 mg tablet extended release 24hr 15 mg PO DAILY Rx Instructions: Note change in dosage acyclovir 200 MG capsule 400 mg PO PRN PRN hydrocortisone 2.5 % cream with perineal applicator 1 applic [place] QD-BID PRN mometasone 0.1 % cream 1 applic TP DAILY PRN clobetasol 0.05 % cream 1 applic TP DAILY PRN melatonin 5 mg capsule 10 mg PO HS ketorolac 10 mg tablet 10 mg PO Q6H PRN (Reason: pain) Qty: 20 0RF tamsulosin 0.4 mg capsule 0.4 mg PO DAILY Qty: 90 0RF acetaminophen 500 mg Capsule 500 mg PO Q6H PRN Discontinued bisacodyl [Dulcolax (bisacodyl)] 5 mg tablet,delayed release (DR/EC) 5 mg PO ONCE Qty: 4 0RF Rx Instructions: Take per colonoscopy instructions provided by ordering providers office polyethylene glycol 3350 17 gram/dose powder 17 g PO ONCE Qty: 238 0RF Rx Instructions: Take per colonoscopy instructions provided by ordering providers office Discharge Instructions Instructions: Colon polyps Additional Instructions: Lo, I really enjoyed meeting you today, and I hope you make a quick recovery after the procedures. Everything went very smoothly. With regards to the upper endoscopy. Your esophagus and the connection onto your stomach look normal and healthy. I do not see any signs of Norris's esophagus. You do have some polyps in your stomach, but these are not dangerous, and nothing needs to be done for them. He also have a little bit of bile refluxing into your stomach, which could also account for some of your symptoms. I would continue with the omeprazole for now since that seems to be working for you. If you ever find that your symptoms get worse, sucralfate may be another medication that you could try. Dosing of this is a little bit cumbersome, however, so I would not recommend it as a first-line therapy. I did some random biopsies in the stomach to rule out an infection called Helicobacter pylori, which can also cause some symptoms of reflux. The colonoscopy also went very smoothly. I did find to remove a single polyp today. Its extremely small, and none of the features appear worrisome to the naked eye. I will send this off to the pathologist for their review. Once I have those results and the biopsy details, my office will be in touch with recommendations for your next colonoscopy. 1. If tolerated, consume a soft, low fiber diet for 1-2 days. [address] Do not drive, drink alcohol, operate machinery, make critical decisions, or do activities that require coordination or balance for 24 hours. 3. Because air was put into your colon during the procedure, expelling air from your rectum (passing gas or farting) is normal. 4. You may not have a bowel movement for 1-3 days because of the colonoscopy prep. This is normal. 5. Go directly to the emergency room if you notice any of the following: Develop chills (warm to touch), or if you have a thermometer and your temperature is above 101 Difficulty breathing or difficultly swallowing Persistent vomiting Severe abdominal pain, other than gas cramps Severe chest pain Black, tarry stools Any bleeding ? exceeding one tablespoon 6. Call your physician if the site where your intravenous was started becomes red, swollen, painful, and warm to touch. 7. Your physician has reviewed your pre-procedure medications. Please continue to take those medications as previously ordered. You will be given specific information/education regarding any changes to your medications before leaving. Stand Alone Forms: Anesthesia Discharge Inst., Taiwo Osei (DSU) Activity:: Activity as Tolerated Diet:: As Tolerated Discharge Orders Discharge Orders: Discharge Order (Routine); Ordered 08/06/24 Ordered By: Raffy rBown DS: Diagnosis Discharge Diagnosis (1) Encounter for screening colonoscopy: Status: Acute Asessment and Plan: Follow-up on biopsy and polypectomy results
--- NOTE | 2024-08-06 16:36 | W.COLOREPORT ---
Date of service: 08/07/24 Time of Service: 16:01 Colonoscopy Report Date of procedure: 08/07/24 Pre-op diagnosis general: screening colonoscopy Post-op diagnosis procedure note: other (Normal EGD, rectal polyp) Procedure: EGD with biopsies and colonoscopy with polypectomy Surgeon: Raffy Brown Anesthesia Type: General:No Airway Estimated blood loss (mL): 10 Pathology: other (Random biopsies of gastric antrum and body to rule out Helicobacter pylori; 0.25 cm flat polyp at 15 cm in the rectal vault) Complications: None Disposition: same day Indications: Lo is a 74 year old woman with a history of adenomatous polyps. She needs her next screening colonoscopy Prep: Miralax/Dulcolax Procedure Start Time: 15:13 Procedure End Time: 15:39 Retraction Time: 12 Findings: Benign-appearing gastric fundic polyps, otherwise normal EGD; 0.25 cm flat rectal polyp at 15 cm Procedure Description: After the initiation of anesthesia, and with the assistance of a bite block, I advanced a standard gastroscope through the mouth past the hypopharynx and into the esophagus.? Under the direct vision of the scope, I advanced down the esophagus towards the stomach.? The upper, mid, and lower esophagus were normal and healthy appearing. The Z-line was regular at 38 cm from the incisors, there was no evidence of any Norris's esophagus. I advanced down into the stomach and insufflated into the rugae were obliterated. I performed retroflexion. There may be a grade 1 hiatal hernia but this is a little difficult to say. Remainder of the stomach was normal. There were some benign fundic land polyps. Narrowband imaging was used to assist with the analysis of these. I advanced down around the incisura angularis towards the antrum. There was some bile reflux through the pylorus, but everything else appeared normal. I did not see any signs of inflammation or irritation. Advanced through the pylorus into the duodenum, which was also normal. I then brought the camera back into the stomach and perform some nondirected biopsies of the gastric antrum and body to rule out Helicobacter pylori. Biopsies were performed with cold forceps with minimal bleeding. The stomach was then emptied, the camera was brought back out along the length of the esophagus 1 last time. No abnormalities were appreciated. Next we adjusted Lo to the left lateral decubitus position. Great care was taken to make sure that she was padded and supported appropriately. I began by performing an external anorectal exam.? Perineum and skin were normal, as was the anal verge.? There was no evidence of external hemorrhoids.? Next, I performed a digital rectal exam.? I did not appreciate any abnormal findings.? Next, I advanced a colonoscope into the rectal vault.? I performed retroflexion.? This appeared normal.? Using insufflation, I then advanced the colonoscope beyond the rectal folds and into the sigmoid colon before advancing towards the cecum.? The quality of the prep was excellent.? The scope was noted to be in the cecum by identification of the ileocecal valve and appendiceal orifice.? I then began withdrawing the colonoscope using repeated irrigation as necessary for full evaluation of the colonic mucosa. ?Once the scope was withdrawn to the level of the rectum, great care was taken to examine portions of the rectal folds.? In the upper portion of the rectal vault, approximately 15 cm from the anal verge was a 0.25 cm flat polyp. This was removed with cold forceps with minimal bleeding. Finally, the scope was withdrawn and the patient was brought to the same-day surgery recovery unit as the anesthetic wore off. ?The findings and instructions were shared with the patient prior to discharge. [place] Bowel Prep [place] Bowel Prep Right Colon: 3 Left Colon: 3 Transverse Colon: 3 Total Score: 9
[2024-08-07] VITALS (13 sets, daily range): BP systolic 84–127; BP diastolic 46–78; PULSE 61–82; RESP 15–23; TEMP 36–36.4; O2SAT 92–98; BMI 28.0
[2024-08-07] MEDS: Lactated Ringers 1,000 ML 80 ML IV (12:27)
--- NOTE | 2024-08-07 13:57 | W.ANESPRE ---
General Info Date of Service Date Performed: 08/07/24 Height: 5 ft 4 in Weight: 74.1 kg Body Mass Index (BMI): 28.0 Surgical Procedure: Operation Date: 08/07/24 13:35 Proposed Procedure Side Surgeon christiano Brown MD Meds Allergies and Home Medications Allergies Allergy/AdvReac Type Severity Reaction Status Date / Time cephalexin Allergy Intermediate rash Verified 08/07/24 12:14 tramadol Allergy Intermediate rash Verified 08/07/24 12:14 erythromycin base Allergy Unknown Skin Rash Verified 08/07/24 12:14 oxycodone AdvReac Severe Other (See Verified 08/07/24 12:14 Comment) [email or web address] (From Myrbetriq) AdvReac elevated bp Verified 08/07/24 12:14 Home Medication ?Medication ?Instructions ?Recorded acyclovir 200 mg capsule 400 mg PO PRN PRN 10/11/13 hydrocortisone 2.5 % topical cream 1 applic [place] QD-BID PRN 02/27/20 with perineal applicator acetaminophen 500 mg capsule 500 mg PO Q6H PRN 03/19/22 clobetasol 0.05 % topical cream 1 applic topical DAILY PRN 03/30/22 mometasone 0.1 % topical cream 1 applic topical DAILY PRN 03/30/22 atorvastatin 20 mg tablet 20 mg PO DAILY 09/08/23 cholecalciferol (vitamin D3) 25 25 mcg PO DAILY 09/08/23 mcg (1,000 unit) capsule cyanocobalamin (vitamin B-12) 1,000 mcg PO DAILY 09/08/23 1,000 mcg capsule omeprazole 20 mg capsule,delayed 40 mg PO DAILY 09/08/23 release melatonin 5 mg capsule 10 mg PO HS 12/02/23 ketorolac 10 mg tablet 10 mg PO Q6H PRN pain #20 tabs 04/24/24 tamsulosin 0.4 mg capsule 0.4 mg PO DAILY #90 caps 05/26/24 oxybutynin chloride 10 mg 15 mg PO DAILY 07/20/24 tablet,extended release 24 hr Current Visit Medications: Current Medications Generic Name Dose Route Start Last Admin Trade Name Freq PRN Reason Stop Dose Admin Ringer's Solution 1,000 mls @ 80 mls/hr 08/07/24 06:00 08/07/24 12:27 IV 08/07/24 23:59 80 mls/hr INFUSION MELLY Administration IV Miscellaneous Supplies 1 each 08/07/24 06:00 Iv Access IV 08/07/24 23:59 DIRECTED MELLY Ondansetron HCl 4 mg 08/06/24 16:37 Ondansetron 4 Mg/2 Ml Vial IVP 09/05/24 16:36 Q4H PRN PRN Nausea / Vomiting Sodium Chloride 0 ml 08/07/24 06:00 Normal Saline Flush 10 Ml Syr IV 08/07/24 23:59 PRN PRN Sodium Chloride 0 ml 08/07/24 06:00 Normal Saline 10 Ml Vial IJ 08/07/24 23:59 DIRECTED PRN Sterile Water 0 ml 08/07/24 06:00 Water,Injection,Sterile 10 Ml Vial IJ 08/07/24 23:59 DIRECTED PRN PFSH Active Problems Active Problems: Problem Status Onset Code Encounter for screening colonoscopy Acute Z12.11 Onychomycosis due to dermatophyte Acute B35.1 Pain in left foot Acute M79.672 Osteoporosis Chronic M81.0 Hyperlipidemia Acute E78.5 GERD (gastroesophageal reflux disease) Chronic K21.9 Hypothyroid Chronic E03.9 Ingrowing nail Acute L60.0 Seborrheic keratoses Acute L82.1 Onychomycosis Acute B35.1 Cataract Chronic H26.9 Herpes labialis Acute B00.1 Urinary incontinence Acute R32 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 states she has a titanium staple They tacked up by bladder H/O cold sores Biceps tendinitis on left (11/22/14) Left arm pain (11/22/14) Medical History Comments:: pt. reports throwing up at home after last procedure Surgical History Surgical History S/P cystoscopy with ureteral stent placement ureteroscopy with ureteral stone removal History of bladder suspension procedure History of esophagogastroduodenoscopy (EGD) S/P colonoscopy - normal S/P tubal ligation S/P tonsillectomy Tobacco Smoking/Tobacco Use Status: Never Alcohol Alcohol Intake: current Alcohol intake frequency: a few times a month Alcohol type: wine Substance Use Substance use: Never Substance use type: does not use Vital Signs and Lab Results Vital Signs Most Recent Vital Signs in EMR: Most Recent Vital Signs Temp Pulse Resp BP Pulse Ox 36.4 C L 79 20 119/68 95 08/07/24 12:17 08/07/24 12:17 08/07/24 12:17 08/07/24 12:17 08/07/24 12:17 Lab Results Blood Type / Crossmatch: No Data to Display Complete Blood Count: No Data to Display Complete Metabolic Panel: No Data to Display Liver Function Panel: No Data to Display Coagulation Panel: No Data to Display Cardiac Panel: No Data to Display Arterial Blood Gas: No Data to Display Venous Blood Gas: No Data to Display Pancreas Panel: No Data to Display Thyroid Panel: No Data to Display Infectious Disease: No Data to Display Blood Cultures: No Data to Display Toxicology Panel: No Data to Display Imaging and Studies Imaging and Studies Study information below may be from another EMR and interpreted by another provider. Please see original notes in EMR for more complete details. Stress Test Summary: 11/2014: negative for ischemia. Echocardiogram Summary: Patient Name: Lo Gardner Unit #: [id number] Loc: Ordering Provider: Guadalupe Delatorre Status: [facility] Primary Care Provider: Marc Pan M.D. Date of Exam: 02/02/23 Sex: F Admission Date: 02/02/23 : 1950 Age: 72 APPROVED REPORT EXAM: Comprehensive 2D, Doppler, and color-flow Echocardiogram Patient Location: Out-Patient Instructional Support Assistant: Huyen Ravi RDCS (AE) Indications: Exertional Dyspnea Other Information Study Quality: Adequate Conclusion Normal left ventricular wall thickness and chamber size. Ejection fraction is 55 to 60%. Wall motion is normal Normal right ventricular size and systolic function Both atria are normal in size Trileaflet aortic valve without stenosis or regurgitation Mildly thickened mitral leaflets with mild regurgitation Estimated right ventricular systolic pressure is 23 mmHg Wall motion Left Ventricle The left ventricle is normal size. The left ventricular systolic function is normal. The left ventricular ejection fraction is within the normal range. There is normal left ventricular wall thickness. There is normal LV segmental wall motion. There is no ventricular septal defect visualized. LVEF is 57%. Right Ventricle The right ventricle is normal size. The right ventricular systolic function is normal. The RVSP is 22.7mmHg. Atria The left atrium size is normal. The right atrium size is normal. The interatrial septum is intact with no evidence for an atrial septal defect. Aortic Valve The aortic valve is normal in structure. Aortic valve is trileaflet. There is no aortic valvular stenosis. No aortic regurgitation is present. Mitral Valve Mildly thickened mitral leaflets No evidence of mitral valve stenosis. Mild mitral regurgitation. Tricuspid Valve The tricuspid valve is normal in structure. There is no tricuspid valve stenosis. Trace tricuspid regurgitation. Pulmonic Valve Pulmonic valve is not well visualized. There is no pulmonic valvular stenosis. Trace pulmonic regurgitation. Great Vessels The aortic root is normal in size. The ascending aorta is borderline dilated. Aortic arch is normal in caliber. IVC is normal in size and collapses >50% with inspiration. Pericardium There is no pericardial effusion. 2D Dimensions IVSD d PLAX 0.90 cm F: 0.6-1.0LV Vol A2C d MOD 96.1 mL LVPW d PLAX 0.98 cm F: 0.6 - 1.0LV Vol A4C d MOD 99.9 mL LVID d PLAX 4.00 cm F: 3.8 - 5.2LA vol/ BSA A2C s A-L30.8 mL/m2 LVDs 2.75 cm F: 2.2 - 3.5LA vol/ BSA A4C s A-L22.5 mL/m2 Ao Root d 3.00 cm F: 2.7 - 3.3LA Vol/ BSA Biplane s A-L 28.3 mL/m2 RA Area A4C12.70 cm2LA Area A4C s MOD 15.75 cm2 RA Vol/ BSA A4C s A-L 18.5 mL/m2LA Area A2C s MOD 17.11 cm2 Ao Asc Diam d 3.32 cm F: 2.3 - 3.1LV EF A4C MOD 55.6 % LV EF Teichholz 59.5 %LV EF A2C MOD 57.6 % LVEF (Raygoza's)56.69 % F: 54 - 74LV EF Biplane MOD 56.7 % LV Pbyjnu02.14 mL F: 46 - 916KL82.98 mL LV Volume Index43.33 mL/m2 F: 29 - 61SV Index31.47 mL/m2 LV Vol Biplane MOD 98.8 mL FS31.15 % M-Mode TAPSE 1.70 cm (M/F) >1.7 LV Diastology MV E' medial0.051 (>0.07 m/s)E/A Ratio 0.8 LV E/e MED10.50 (<14)MV E Vmax 0.54 (0.4-1.3 m/s) MV E' lateral0.084 (>0.1 m/s)MV A Vmax 0.70 (0.4-1.3 m/s) LV E/e LAT6.40 (<14)MV E/A Ratio 0.77 MV E/E' medial 10.54 MV E/E' lateral6.42 Aortic Valve LVOT Area3.48 cm2AoV Area Vmax2.23 cm2 LVOT Vmax 0.77 m/sAoV Area/ BSA (Vmax)1.26 cm2/m2 LVOT Mean Alejo.0.49 m/sAVA Mean Alejo.2.21 cm2 LVOT Peak Grad 2.3 mmHgAVA Mean Alejo. Index1.24 cm2/m2 LVOT Mean Grad 1.1 mmHg LVOT VTI0.155 m LVOT Diam s 2.10 cm AoV Vmax1.19 m/s Velocity Ratio 0.65 AoV Mean Alejo.0.77 m/s AoV Peak Grad5.7 mmHg LVOT SV 53.92 mL AoV Mean Grad2.8 mmHg AoV VTI0.227 m AoV Area VTI2.37 cm2 AoV Area/ BSA (VTI)1.33 cm/m2 Mitral Valve MV DT 273 (160-240 msec) MV PHT79 msec MV Area PHT 2.77 cm2 MV VTI 0.255 m MV Area VTI 2.11 (4.0-6.0 cm2) Pulmonary Valve PV Vmax 0.73 (0.5-1.5 m/s)RVOT Peak Gr.1.09 mmHg PV Peak Grad 2.1 mmHgRVOT Mean Gr.0.50 mmHg PV Mean Grad 1.1 mmHgRVOT VTI0.105 m PV VTI 0.117 mRVOT Vmax 0.52 m/s Tricuspid Valve TR Peak Grad 19.7 mmHgTR Vmax 2.22 m/s RA Pressure 3.00 mmHg RVSP (TR) 22.7 mmHg Ordered By: Guadalupe Delatorre CC: Dictated By: Clementina Choi M.D. 02/03/23802 <Electronically signed by Clementina Choi M.D. in [place]> 02/04/23804 Transcribed By: Clementina Choi MD This is privileged, confidential information intended only for the provider named. Any use or distribution by any person other than this provider is strictly prohibited. If you receive this report in error, please notify us immediately at [phone] and return the original report to us at the address above. Thank-you. Pulmonary Function Summary: Pulmonary Function Test PATIENT NAME: Lo Gardner UNIT #: [id number] ADMITTING PROVIDER: Siria Cabezas M.D. PRIMARY CARE PROVIDER: MARC PAN MD DATE OF ADMIT: 06/08/22 : 1950 Date of service: 06/08/22 Time of Service: 14:48 Pulmonary Function Test Result Requesting Provider Carmelo Pan Indications: Chronic cough Interpretation Spirometry: There is no airflow limitation. There is no significant bronchodilator response. Lung Volumes: Normal lung volumes Diffusion Capacity: Normal diffusion Airway Pressure: Normal airways resistance. Impression Normal pulmonary function testing. Clinical Correlation therefore is recommended. cc: Dictated by: SIRIA CABEZAS MD Dictated: 06/09/22 Time: 1617 <Electronically signed by Siria Cabezas M.D.> Date: 06/09/221618 Date: Date: Transcribed Date: 06/09/22 Transcribed Time: 1617 By: SAJI This is privileged, confidential information, intended only for the provider named. Any use or distribution by any person other than this provider is strictly prohibited. If you receive this report in error, please notify us immediately at [phone] and return the original report to us at the address above. Thank you. Anesthesia Assessment and Plan Anesthesia History Personal History: No History of Anesthesia Complications Family History: No Family History of Anesthesia Complications Exercise Tolerance Exercise Tolerance: Metabolic Equivalents>4 Pertinent Negatives Pertinent Negatives: No Major Pulmonary Symptoms or Complaints and No History of CVA/TIA Cardiac & Pulmonary Exam Cardiac Exam: Normal S1/S2 Heart Sounds Pulmonary Exam: Clear Bilateral Breath Sounds Implantable Cardiac Device Does patient have a Pacemaker or an ICD?: No Airway Exam Known Difficult Airway: No Mallampati Class: 2 Mouth Opening: Normal (> 3cm) Thyromental Distance: Greater than 3 cm Neck Range of Motion: Full ROM Neck Circumference: Normal Teeth Condition: Normal Dentition Tooth Numberin. chipped tooth ASA Classification ASA Score: ASA 2 Emergency Case?: No NPO Status NPO Status: NPO Clears >2 hours, Solids >8 hours Anesthesia Plan Resuscitation Status: Full Code Anesthesia Technique: General Anesthesia Airway Planned: LMA Monitors Used: Standard Monitors Preoperative Comments:: 74 yo female for colonoscopy Sig PMHx: GERD/dysphagia, chronic cough, never smoker, occ EtOH. Stress Test: neg. Previous Anes: LMA 4 x 2. General natural airway for cysto Of note: increasing symptoms of GERD. Has been having new episodic bile in mouth and spitting out bile 3-4x since 07/05/2024. Discussed Moderate sedation versus GA with natural versus GA with ETT. Patient would like to proceed with GA with ETT.
--- NOTE | 2024-08-07 15:16 | BOWEL_PTH ---
PATIENT: Lo Gardner LOC: [facility] U#:[id number] AGE/SX: 74/F ROOM: RE08/07/[address]: Raffy Brown MD : 1950 BED: DIS: 08/07/2024 SPEC #: [id number] RECD: 08/07/24 18:23 STATUS: CAMI RE #: [id number] RANJIT: 08/07/24 15:[address]: Raffy Brown DEPT: Surgical Specimen RECD BY: Stephania Ly ENTERED: 08/07/24 18:25 SP TYPE: Bowel OTHR DR: Guadalupe Delatorre Tissues: 1 - STOMACH BIOPSY 2 - STOMACH BIOPSY 3 - BIOPSY BOWEL Procedures: GROSS AND MICRO LEVEL 4 Comments: [id number]
--- NOTE | 2024-08-07 16:37 | W.ANESPOSTOP ---
Postoperative Evaluation Date, Time and Location Date Performed: 08/07/24 Time Performed: 16:37 Patient Location: Day Surgery Unit Vital Signs Most Recent Imported Vital Signs: Most Recent Vital Signs Temp Pulse Resp BP Pulse Ox 36.0 C L 76 16 127/78 98 08/07/24 16:07 08/07/24 16:07 08/07/24 16:07 08/07/24 16:07 08/07/24 16:07 Pain Score Most Recent Pain Score: Most Recent Pain Score Pain Level 0 08/07/24 16:03 Assessment Mental Status: Awake (Alert & Oriented to Patient Baseline) Airway and Respiratory Function: Patent airway with normal (patient baseline) respiratory exam Cardiovascular Function: Hemodynamically Stable Hydration Status: Adequately Hydrated Nausea & Vomiting: No Nausea or Vomiting Pain: Pt. Denies Any Pain Peripheral Nerve Block: Patient did not receive a nerve block
== END 2024-08-07 16:47 | disposition home or self-care (01) ==
PROVIDERS: PCP Family Medicine; Visit Provider Surgery
PROC: 0DJD8ZZ Inspection of Lower Intestinal Tract, Via Natural or Artificial Opening Endoscopic (ICD-10-PCS; CPT 45378; principal; 2024-08-07 13:30)
DX: Z12.11 Encounter for screening for malignant neoplasm of colon (principal); K62.1 Rectal polyp; K21.9 Gastro-esophageal reflux disease without esophagitis; K31.89 Other diseases of stomach and duodenum
CPT/HCPCS: 45380; 43239; 88305; J2405; J2704; J3010

== ENCOUNTER 2024-09-25 01:58 | Outpatient (CLI) | payer MEDICARE, BC, SELFPAY ==
--- NOTE | 2024-09-25 08:00 | DI.RAD_ITS ---
Exam(s) XR ABDOMEN FLAT PLATE EXAM: 2D digital imaging was performed. CLINICAL HISTORY: monitoring renal calculi,Z87.442,H/O RENAL CALCULI. COMPARISON: CT CT RENAL COLIC WO from 04/04/2024 TECHNIQUE: Supine views of the abdomen performed. FINDINGS: BOWEL GAS PATTERN: Nondistended. Large quantity of stool seen on the right side of colon. CALCIFICATIONS: The kidneys are mainly obscured by overlying stool and bowel gas. There are are larg e calcifications of seen near the pubic symphysis which appear unchanged from prior CT. Phlebolith i n the right lower pelvis. OSSEOUS STRUCTURES: Unremarkable for age. OTHER FINDINGS: Non the lung bases are clear. Surgical clips in the lower abdomen pelvis. IMPRESSION: 1. Nonobstructive bowel gas pattern. 2. Stable appearance of calcifications near the pubic symphysis. The kidneys are obscured by overlyi ng bowel gas and stool DATA REPOSITORY: RADIATION DOSE DELIVERED:
== END 2024-09-25 02:18 ==
LOC: DI 01:58
PROVIDERS: PCP Family Medicine; Visit Provider Nurse Practitioner Gerontology
DX: Z87.442 Personal history of urinary calculi (principal); N20.0 Calculus of kidney
CPT/HCPCS: 74018

== ENCOUNTER → 2024-09-27 11:00 | Outpatient (BNVA) | payer MEDICARE, BC, SELFPAY | PROVIDERS: PCP Family Medicine; Visit Provider Nurse Practitioner Gerontology | DX: R32 Unspecified urinary incontinence (principal); R39.9 Unspecified symptoms and signs involving the genitourinary system | CPT/HCPCS: 51798; 81003; 99213 ==

== ENCOUNTER 2025-01-18 16:50 | Outpatient (REF) | payer MEDICARE, SELFPAY ==
[2025-01-18 16:03] LABS: Abs Immature Grans 0.01 10^3/uL (0.0-0.06); HCT 42.8 % (36.0-46.0); HGB 14.1 g/dL (11.2-15.7); Immature Grans % 0.2 %; MCH 30.0 pg (27.0-33.0); MCHC 32.9 % (32.0-36.0); MCV 91 fL (80-95); MPV 11.4 fL (8.0-11.0); Platelet Count 200 10^3/uL (130-400); RBC 4.70 10^6/uL (3.93-5.22); RDW 12.8 % (11.7-14.6); RDW-SD 42.9 fL; WBC 5.12 10^3/uL (4.4-10.8)
[2025-01-18 16:38] LABS: ALT 24 U/L (14-59); AST 17 U/L (15-37); Albumin 3.6 g/dL (3.4-5.0); Alkaline Phosphatase 93 U/L (46-116); Anion Gap 5.6 mmol/L (3-11); BUN 12 mg/dL (7-18); Bilirubin, Total 0.8 mg/dL (0.2-1.0); CO2 30.4 mmol/L (21.0-32.0); Calcium 9.3 mg/dL (8.5-10.1); Calculated LDL 69 mg/dL (<100); Chloride 107 mmol/L (98-107); Cholesterol 139 mg/dL (<200); Estimated GFR 92.97 (mL/min/1.73m2); Glucose 105 mg/dL (74-106); HDL Cholesterol 56 mg/dL (>or=50); Potassium 3.9 mmol/L (3.5-5.1); Sodium 143 mmol/L (136-145); Total Protein 6.4 g/dL (6.4-8.2); Triglyceride 71 mg/dL (<150); Vitamin D 25 Total 47 ng/mL (30-100)
== END 2025-01-18 16:51 | disposition home or self-care (01) ==
LOC: NCHCN 16:50
PROVIDERS: PCP Family Medicine; Visit Provider Family Medicine
DX: Z13.220 Encounter for screening for lipoid disorders (principal); Z00.00 Encounter for general adult medical examination without abnormal findings
CPT/HCPCS: 80053; 80061; 82306; 85025

== ENCOUNTER 2025-01-21 13:10 | Emergency (ER) | payer MEDICARE, BC, SELFPAY ==
[2025-01-21] VITALS (17 sets, daily range): BP systolic 125–161; BP diastolic 62–91; PULSE 55–74; RESP 10–27; TEMP 36.8; O2SAT 92–99
--- NOTE | 2025-01-21 13:00 | RT.EKG_ITS ---
APPROVED REPORT Exam: Resting ECG Reason for Exam: Chest Pain Patient Location: E HR:71 bpm ECG Measurements Heart Rate 71 AXIS AR 191 P 37 QRSd 85 QRS 8 QT 383 T 22 QTc 416 Conclusion Sinus rhythm, rate 71 No interval abnormalities No STEMI No priors available for comparison
--- NOTE | 2025-01-21 13:30 | DI.RAD_ITS ---
Exam(s) XR CHEST 2V PA LATERAL EXAM: XR CHEST 2V PA LATERAL CLINICAL HISTORY: Chest pain TECHNIQUE: 2D digital imaging was performed of the chest. Two images were obtained. PA and lateral views were obtained. COMPARISON: CR XR CHEST 2V PA LATERAL from 05/30/2021 FINDINGS: MEDIASTINUM: Normal. HEART: Normal. PULMONARY VASCULATURE: Normal. LUNGS: Clear. PLEURAL SPACE: No pleural effusion or pneumothorax. BONE:Within normal limits for the patient's age. OTHER FINDINGS:Normal. IMPRESSION: No acute pulmonary findings. DATA REPOSITORY: RADIATION DOSE DELIVERED:
--- NOTE | 2025-01-21 13:39 | W.ED.GENAD ---
Discharge Plan Disposition Patient Disposition: Home Condition: Stable Discharge Details Clinical Impression: Chest pain Primary Care Provider: Guadalupe Delatorre ED Provider: Mari Willingham Home Meds and New Rx's Prescriptions: No Action omeprazole 20 mg capsule,delayed release(DR/EC) 40 mg PO DAILY atorvastatin 20 mg tablet 20 mg PO DAILY cholecalciferol (vitamin D3) 25 mcg (1,000 unit) capsule 25 mcg PO DAILY Rx Instructions: dose unverified cyanocobalamin (vitamin B-12) 1,000 mcg capsule 1,000 mcg PO DAILY Rx Instructions: dose unverified acyclovir 200 MG capsule 400 mg PO PRN PRN hydrocortisone 2.5 % cream with perineal applicator 1 applic [place] QD-BID PRN mometasone 0.1 % cream 1 applic TP DAILY PRN clobetasol 0.05 % cream 1 applic TP DAILY PRN melatonin 5 mg capsule 10 mg PO HS ketorolac 10 mg tablet 10 mg PO Q6H PRN (Reason: pain) Qty: 20 0RF oxybutynin chloride 10 mg tablet extended release 24hr See Rx Instructions .ROUTE .COMPLEX Qty: 90 2RF Dose Instruction: TAKE 1 TABLET DAILY (CHANGEIN DOSAGE) Rx Instructions: TAKE 1 TABLET DAILY (CHANGEIN DOSAGE) acetaminophen 500 mg Capsule 500 mg PO Q6H PRN Discharge Instructions Instructions: Chest Pain, Adult ED Additional Instructions: You were seen in the emergency department today for evaluation of chest pain. In our department you had a full physical examination performed, had an EKG that was reassuring and had laboratory studies that did not show any sign of ongoing damage to your heart. You had a negative chest x-ray, and your chest pain went away on its own. At this time, it is safe for you to go home and keep your appointment tomorrow, as your primary care provider may make recommendations for ongoing workup or testing. Please return to the emergency department if your chest pain returns, you develop shortness of breath, or any other symptoms that cause you concern. Thank you for allowing us to be part of your care. HPI General Mode of arrival: ambulatory. Date/Time Provider Initiated Documentation: 01/21/25 13:17. Limitations to Documentation: no limitations. Information obtained by: patient and old records reviewed. HPI Narrative: This is a 74-year-old female patient with a history of hyperlipidemia, GERD, and hypothyroidism presenting for evaluation of right-sided chest pain. The patient reports that she was working in her garden and had a tightness on the right side of her chest and into her epigastric region. She states that she has never had pain quite like this before, only other episode of chest pain in her life was over 50 years ago. She reports that the gardening is not an unusual activity for her, and she did not have any specific movements or moments where the pain suddenly started. At the onset her pain was 10 out of 10, she states that without intervention it has now declined and is 2 out of 10. She reports that the pain was not reproducible with deep breath, palpation, or movement. She states that she worried initially that it was gas, as it felt somewhat similar to that. She reached out to a family member who recommended emergency department evaluation. Related Data Home Medications ?Medication ?Instructions ?Recorded ?Confirmed acyclovir 200 mg capsule 400 mg PO PRN PRN 10/11/13 01/21/25 hydrocortisone 2.5 % topical cream 1 applic [place] QD-BID PRN 02/27/20 01/21/25 with perineal applicator acetaminophen 500 mg capsule 500 mg PO Q6H PRN 03/19/22 01/21/25 clobetasol 0.05 % topical cream 1 applic topical DAILY PRN 03/30/22 01/21/25 mometasone 0.1 % topical cream 1 applic topical DAILY PRN 03/30/22 01/21/25 atorvastatin 20 mg tablet 20 mg PO DAILY 09/08/23 01/21/25 cholecalciferol (vitamin D3) 25 25 mcg PO DAILY 09/08/23 01/21/25 mcg (1,000 unit) capsule cyanocobalamin (vitamin B-12) 1,000 mcg PO DAILY 09/08/23 01/21/25 1,000 mcg capsule omeprazole 20 mg capsule,delayed 40 mg PO DAILY 09/08/23 01/21/25 release melatonin 5 mg capsule 10 mg PO HS 12/02/23 01/21/25 ketorolac 10 mg tablet 10 mg PO Q6H PRN pain #20 tabs 04/24/24 01/21/25 oxybutynin chloride 10 mg See Rx Instructions .Route 09/18/24 01/21/25 tablet,extended release 24 hr .COMPLEX #90 tabs Previous Rx's ?Medication ?Instructions ?Recorded ketorolac 10 mg tablet 10 mg PO Q6H PRN pain #20 tabs 04/24/24 oxybutynin chloride 10 mg See Rx Instructions .Route 09/18/24 tablet,extended release 24 hr .COMPLEX #90 tabs Allergies Allergy/AdvReac Type Severity Reaction Status Date / Time cephalexin Allergy Intermediate rash Verified 01/21/25 13:16 tramadol Allergy Intermediate rash Verified 01/21/25 13:16 erythromycin base Allergy Unknown Skin Rash Verified 01/21/25 13:16 oxycodone AdvReac Severe Other (See Verified 01/21/25 13:16 Comment) [email or web address] (From Myrbetriq) AdvReac elevated bp Verified 01/21/25 13:16 General Stated Complaint: Chest Pain KESHAWN: 2 Exam Narrative Exam Narrative: Gen: Awake and alert, in no apparent distress HEENT: Non-icteric sclera Neck: Supple Lungs: No apparent respiratory distress, normal respiratory effort. Lung sounds clear and equal bilaterally CV: Appears well perfused, heart with regular rate and rhythm, strong distal pulses. Chest wall is not tender to palpation Abdomen: Non-distended, soft, patient does have some tenderness to the epigastric region without rigidity, rebound,or rigidity MSK: Moves 4 extremities without apparent limitation in ROM. No peripheral edema Skin: Visualized skin without rashes, cyanosis. Neuro: Normal Gait, no obvious focal deficits or facial asymmetry. Speaks in full, clear sentences. Psych: Appropriate for situation. Course Vital Signs Vital signs: Vital Signs Temperature 36.8 C 01/21/25 13:13 Pulse 70 01/21/25 13:13 Respiratory Rate 12 01/21/25 13:13 Blood Pressure 158/80 H 01/21/25 13:13 Pulse Oximetry 96 01/21/25 13:13 Temperature 36.8 C 01/21/25 13:13 Temperature Source Oral 01/21/25 13:13 Pulse 70 01/21/25 13:13 Respiratory Rate 12 01/21/25 13:13 Respiratory Effort Normal 01/21/25 13:31 Respiratory Depth Normal 01/21/25 13:31 Respiratory Pattern Normal 01/21/25 13:31 Blood Pressure 158/80 H 01/21/25 13:13 Blood Pressure Position Sitting 01/21/25 13:13 Pulse Oximetry 96 01/21/25 13:13 Oxygen Delivery Method Room Air 01/21/25 13:13 Oxygen Flow Rate 0 01/21/25 13:13 Medical Decision Making This is a 74-year-old female patient presenting for evaluation of chest pain. My differential includes but is not limited to ACS including STEMI, NSTEMI, unstable angina, certainly considered arrhythmia, pericarditis/myocarditis, aortic pathology. Considered pulmonary abnormalities including pneumonia, bronchitis, pleural effusion, pulmonary edema, reactive airway disease, pneumothorax. The patient is without tachycardia, hypoxia, or a pleuritic component to this pain to significantly increase my concern for pulmonary embolism. No vomiting to suggest Boerhaave's, though the epigastric discomfort and gas sensation does make me consider esophagitis, peptic ulcer disease, pancreatitis. Considered musculoskeletal pathologies including costochondritis, chest wall pain. I obtained and reviewed an EKG, which shows a sinus rhythm without evidence of ischemia, interval abnormality, or ectopy. I provided the patient with a dose of aspirin, and we will obtain laboratory studies to include CBC, CMP, magnesium, troponin, and lipase. We will obtain a chest x-ray. - I independently interpreted the laboratory studies, which show no significant leukocytosis, anemia, or thrombocytopenia. The chemistry panel is without evidence of electrolyte abnormality, kidney dysfunction, or liver injury. Lipase is low, initial troponin negative. Chest x-ray reviewed by myself, and shows no acute abnormality to explain the patient's symptoms. On reassessment she reports that she is not currently having any pain. Her delta troponin was without interval increase to suggest active ischemia. She was able to tolerate a meal without nausea, vomiting, or worsening of pain. She has a visit scheduled with her primary care provider for tomorrow morning and will discuss next steps in workup and management of this event. At this time, the patient has had a full medical evaluation and is safe for discharge to home. They are hemodynamically stable, ambulatory, and tolerating PO. They are understanding of the follow-up plan and return precautions. They left our facility without incident. Mari Willingham MD PFSH All Active Problems (Updated 01/21/25 @ 15:47 by Mari Willingham MD) Chest pain (Acute) Onychomycosis due to dermatophyte (Acute) Pain in left foot (Acute) Osteoporosis (Chronic) Hyperlipidemia (Acute) GERD (gastroesophageal reflux disease) (Chronic) Hypothyroid (Chronic) Ingrowing nail (Acute) Seborrheic keratoses (Acute) Onychomycosis (Acute) Cataract (Chronic) Herpes labialis (Acute) Urinary incontinence (Acute) Pt states r/o incontenece she leaks. Mixed stress and urge urinary incontinence (Acute) Hearing loss, bilateral (Acute) Medical History (Updated 01/21/25 @ 15:47 by Mari Willingham MD) Tubular adenoma of colon Sebaceous cyst Left ureteral stone Kidney stones H/O cold sores Scalp lesion Dysphagia Chronic cough Cystocele Pt. states she has a titanium staple They tacked up by bladder Biceps tendinitis on left (11/22/14) Left arm pain (11/22/14) Surgical History (Updated 09/18/24 @ 11:23 by Flor Obrien) S/P cystoscopy with ureteral stent placement ureteroscopy with ureteral stone removal History of bladder suspension procedure History of esophagogastroduodenoscopy (EGD) (~08/2024) Normal S/P colonoscopy (~08/2024) - normal, 2024 rectal polup S/P tubal ligation S/P tonsillectomy Social History Smoking/Tobacco Use Status: Never Smoking risk assessment performed?: Yes Alcohol Intake: current Alcohol Intake frequency: a few times a month Alcohol type: wine Drug use: Never Substance use type: does not use Household members: spouse Housing: house What is your relationship status?: Panel score (0-1 are the most socially isolated patients): 1 Do you feel safe at home: Yes Do you feel safe in your relationship?: Yes
[2025-01-21 13:42] LABS: Abs Immature Grans 0.01 10^3/uL (0.0-0.06); HCT 43.7 % (36.0-46.0); HGB 14.7 g/dL (11.2-15.7); Immature Grans % 0.2 %; MCH 30.0 pg (27.0-33.0); MCHC 33.6 % (32.0-36.0); MCV 89 fL (80-95); MPV 11.2 fL (8.0-11.0); Platelet Count 216 10^3/uL (130-400); RBC 4.90 10^6/uL (3.93-5.22); RDW 12.8 % (11.7-14.6); RDW-SD 42.0 fL; WBC 6.39 10^3/uL (4.4-10.8)
[2025-01-21] MEDS: Aspirin 81 MG CHEW 324 MG CH (14:03)
[2025-01-21 14:08] LABS: ALT 27 U/L (14-59); AST 15 U/L (15-37); Albumin 3.9 g/dL (3.4-5.0); Alkaline Phosphatase 101 U/L (46-116); Anion Gap 10.5 mmol/L (3-11); BUN 13 mg/dL (7-18); Bilirubin, Total 0.8 mg/dL (0.2-1.0); CO2 26.5 mmol/L (21.0-32.0); Calcium 9.6 mg/dL (8.5-10.1); Chloride 104 mmol/L (98-107); Estimated GFR 92.97 (mL/min/1.73m2); Glucose 109 mg/dL (74-106); Lipase 35 U/L (<78); Magnesium 1.9 mg/dL (1.8-2.4); Potassium 3.5 mmol/L (3.5-5.1); Sodium 141 mmol/L (136-145); Total Protein 7.2 g/dL (6.4-8.2); Troponin I 6 ng/L (<or=51)
[2025-01-21 15:14] LABS: Troponin I 6 ng/L (<or=51)
== END 2025-01-21 15:58 | disposition home or self-care (01) ==
PROVIDERS: Emergency Provider Emergency Medicine; PCP Family Medicine
DX: R07.9 Chest pain, unspecified (principal); R10.13 Epigastric pain; E78.5 Hyperlipidemia, unspecified
CPT/HCPCS: 80053; 83690; 93005; 99285; 71046; 83735; 84484; 85025; 93010; 99284

== ENCOUNTER → 2025-04-02 10:25 | Outpatient (BNVA) | payer MEDICARE, BC, SELFPAY | PROVIDERS: PCP Family Medicine; Visit Provider Nurse Practitioner Gerontology | DX: Z87.442 Personal history of urinary calculi (principal); N39.46 Mixed incontinence; R39.9 Unspecified symptoms and signs involving the genitourinary system | CPT/HCPCS: 99213; 51798 ==

== ENCOUNTER 2025-04-16 02:42 | Outpatient (CLI) | payer MEDICARE, SELFPAY ==
--- NOTE | 2025-04-16 | DI.MAMMO_ITS ---
Exam(s) MAMMO SCREENING EXAM: MAMMO SCREENING CLINICAL HISTORY: SCREENING, Z12.31 TECHNIQUE: Mammograms were interpreted according to the usual protocol including computer analysis with CAD system, tomosynthesis and C-view imaging. COMPARISON: 2016 through 2023 FINDINGS: The breasts are composed of scattered fibroglandular densities, Breast Density category B. No suspicious masses or suspicious microcalcifications are seen. No skin thickening or abnormal axillary lymph nodes are seen. There has been no significant change from prior exams. IMPRESSION: BI-RADS Category 1, Negative mammogram Yearly screening mammography is recommended. Breast Density - Category B - There are scattered areas of fibroglandular density. Breast density Category C or D implies that the patient has dense breast tissue. Dense breast tissue can make it harder to find cancer on a mammogram. Dense breast tissue is also associated with an increased risk of breast cancer. This information about the result of the mammogram report was provided to the patient to raise their awareness. Use this report when you speak with the patient about their risks for breast cancer, which includes their family history. At that time, you may recommend additional screening tests (Ultrasound or MRI) as these tests may add significant information. A negative radiographic report should not delay biopsy if a dominant or clinically suspicious mass is present. Up to ten percent of cancers are not identified on mammography. A negative report may reinforce clinical impression. Adenosis and dense breasts may obscure an underlying neoplasm. False positive reports average 6 to 10%. Patient will receive a letter notifying them of these results.
== END 2025-04-16 03:02 ==
LOC: DI 02:42
PROVIDERS: PCP Family Medicine; Visit Provider Family Medicine
DX: Z12.31 Encounter for screening mammogram for malignant neoplasm of breast (principal); R92.323 Mammographic fibroglandular density, bilateral breasts
CPT/HCPCS: 77063; 77067